=== PATIENT | female | born 1960 | race Asian ===

== ENCOUNTER 2018-11-15 11:30 | Inpatient (IN) | payer OTHER ==
[2018-11-15 12:21] LABS: BASOPHILS % (AUTO) 0.3 %; EOSINOPHILS % (AUTO) 0.1 %; HGB - HEMOGLOBIN 15.9 g/dL (12.0-16.0); LYMPHOCYTES % (AUTO) 4.7 %; MEAN CORPUSCULAR HEMOGLOBIN 29.1 pg (27.0-31.0); MEAN CORPUSCULAR HGB CONC 33.3 g/dL (32.0-36.0); MEAN CORPUSCULAR VOLUME 87.4 fL (81.0-99.0); MEAN PLATELET VOLUME 7.1 fL (7.9-10.8); NEUTROPHILS % (AUTO) 88.9 %; PLT - PLATELET COUNT 284 10^3/uL (130-450); RED BLOOD COUNT 5.48 10^6/uL (4.20-5.40); RED CELL DISTRIBUTION WIDTH 12.9 % (12.0-15.0); WHITE BLOOD COUNT 13.3 x10^3/uL (4.8-10.8)
[2018-11-15 12:33] LABS: GLUCOSE, URINE (UA) NEGATIVE (NEGATIVE); KETONES,URINE (UA) 15 mg/dL (NEGATIVE); LEUKOCYTE ESTERASE, URINE TRACE (NEGATIVE); NITRITE,URINE NEGATIVE (NEGATIVE); OCCULT BLOOD,URINE NEGATIVE (NEGATIVE); PH,URINE 8.5 PH (5.0-7.5); PROTEIN,URINE 100 mg/dL (NEGATIVE); UROBILINOGEN,URINE 0.2 (NORMAL) E.U./dL (NORMAL)
[2018-11-15 12:33] LABS: ALBUMIN 4.6 g/dL (3.2-5.5); ALBUMIN/GLOBULIN RATIO 1.2 (1.0-2.2); BILIRUBIN,TOTAL 2.5 mg/dL (0.2-1.0); CALCIUM 10.5 mg/dL (8.5-10.3); CREATININE 0.8 mg/dL (0.4-1.0); TOTAL PROTEIN 8.5 g/dL (6.7-8.2)
[2018-11-15 12:35] LABS: CLARITY,URINE HAZY (CLEAR)
[2018-11-15 12:38] LABS: BILIRUBIN,URINE NEGATIVE (NEGATIVE); ICTOTEST,URINE NEGATIVE
[2018-11-15 12:47] LABS: BACTERIA,URINE Rare /HPF (None Seen); MUCUS,URINE Marked Strands; RBC,URINE 0-5 /HPF (0-5); SQUAMOUS EPITHELIAL CELL,UR RARE Squamous (<= Few)
[2018-11-15 12:57] LABS: ABNORMAL LYMPHS % (MANUAL) 0 %
[2018-11-15 12:58] LABS: BAND NEUTROPHILS % (MANUAL) 9 %; LYMPHOCYTES # (MANUAL) 0.7 10^3/uL (1.5-3.5); LYMPHOCYTES % (MANUAL) 5 %; MONOCYTES # (MANUAL) 0.4 10^3/uL (0.0-1.0); NEUTROPHILS # (MANUAL) 12.2 10^3/uL (1.5-6.6); NEUTROPHILS % (MANUAL) 83 %; PLATELET ESTIMATE, MANUAL NORMAL (130-450,000) (NORMAL); PLATELET MORPHOLOGY NORMAL APPEARANCE (NORMAL); RBC MORPHOLOGY (MULTIPLE) NORMAL APPEARANCE (NORMAL)
[2018-11-15 12:59] LABS: DIFFERENTIAL COMMENT MANUAL DIFFERENTIAL
[2018-11-15] MEDS ORDERED: MORPHINE 10 MG/ML VIAL IVP STA (13:01)
[2018-11-15] MEDS ORDERED: ACETAMINOPHEN 1,000 MG/100 ML 100 ML IV STA (13:01)
[2018-11-15] MEDS ORDERED: ONDANSETRON 4 MG/2 ML VIAL IVP STA (13:01)
[2018-11-15] MEDS ORDERED: SODIUM CHLORIDE 0.9% 1,000 ML IV ONE ×2 (13:01→13:53)
--- NOTE | 2018-11-15 13:02 | ED Physician Documentation ---
PD HPI ABD PAIN - Stated complaint Stated Complaint: ABDOMINAL PX - Chief complaint Chief Complaint: Abd Pain - History obtained from History obtained from: Patient - History of Present Illness Timing - onset: Last night (about 8 pm.) Timing - details: Gradual onset, Still present, Constant Quality: Cramping, Aching, Fullness/distended Location: All over / everywhere, Periumbilical Radiation: No: Chest, Lower back Improved by: No: Vomiting Worsened by: Eating, Position, Palpation Associated symptoms: Nausea, Vomiting (once), Loss of appetite. No: Fever, Diarrhea, Constipation, Melena, Dysuria Similar symptoms before: Has not had sx before Recently seen: Not recently seen Review of Systems Constitutional: denies: Fever, Chills, Myalgias Nose: denies: Rhinorrhea / runny nose, Congestion Throat: denies: Sore throat Cardiac: denies: Chest pain / pressure GI: reports: Abdominal Pain, Abdominal Swelling, Nausea, Vomiting (once). denies: Constipation, Diarrhea, Bloody / black stool : denies: Dysuria, Frequency Skin: denies: Rash, Lesions Neurologic: reports: Generalized weakness. 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 - Present Medications Home Medications: Ambulatory Orders Medication Instructions Recorded Confirmed No Known Home Medications 11/15/18 11/15/18 - Allergies Allergies/Adverse Reactions: Allergies Allergy/AdvReac Type Severity Reaction Status Date / Time prochlorperazine Allergy Cramps Verified 11/15/18 11:41 [From Compazine] - Social History Does the pt smoke?: No Smoking Status: Never smoker Does the pt drink ETOH?: No PD ED PE NORMAL - Vitals Vital signs reviewed: Yes - General General: Alert and oriented X 3, Well developed/nourished - HEENT HEENT: Pharynx benign - Neck Neck: Supple, no meningeal sign, No adenopathy - Cardiac Cardiac: RRR, No murmur - Respiratory Respiratory: Clear bilaterally - Abdomen Abdomen: Other (Moderately distended and tense with increased bowel sounds. She is generally tender and also has percussion tenderness and rebound.). No: Normal bowel sounds, Soft - Female Female : Deferred - Rectal Rectal: Deferred - Back Back: No CVA TTP - Derm Derm: Normal color, Warm and dry - Extremities Extremities: No deformity, Normal ROM s pain, No edema, No calf tenderness / cord - Neuro Neuro: Alert and oriented X 3, No motor deficit, Normal speech Results - Vitals Vitals: Vital Signs - 24 hr 11/15/18 11/15/18 11/15/18 11:33 13:52 13:53 Temperature 35.6 C L Heart Rate 94 75 94 Respiratory 24 20 Rate Blood Pressure 114/68 140/56 H 140/56 H O2 Saturation 100 95 95 Oxygen O2 Source Room air - Labs Labs: Laboratory Tests 11/15/18 11/15/18 11/15/18 12:14 12:14 12:14 WBC 13.3 H RBC 5.48 H Hgb 15.9 Hct 47.9 H MCV 87.4 MCH 29.1 MCHC 33.3 RDW 12.9 Plt Count 284 MPV 7.1 L Neut # (Auto) Not Reportable Lymph # (Auto) Not Reportable Collier # (Auto) Not Reportable Eos # (Auto) Not Reportable Baso # (Auto) Not Reportable Absolute Nucleated RBC Not Reportable Total Counted 100 Band Neuts % (Manual) 9 Abnorm Lymph % (Manual) 0 Nucleated RBC % Not Reportable Neutrophils # (Manual) 12.2 H Lymphocytes # (Manual) 0.7 L Monocytes # (Manual) 0.4 Eosinophils # (Manual) 0.0 Basophils # (Manual) 0.0 Differential Comment MANUAL DIFFERENTIAL WBC Morphology NORMAL APPEARANCE Platelet Estimate NORMAL (130-450,000) Platelet Morphology NORMAL APPEARANCE RBC Morph Micro Appear NORMAL APPEARANCE PT 12.8 H INR 1.1 Sodium 137 Potassium 3.3 L Chloride 99 L Carbon Dioxide 21 Anion Gap 17.0 H BUN 38 H Creatinine 0.8 Estimated GFR (MDRD) 74 L Glucose 169 H Calcium 10.5 H Total Bilirubin 2.5 H AST 20 ALT 17 Alkaline Phosphatase 61 Total Protein 8.5 H Albumin 4.6 Globulin 3.9 Albumin/Globulin Ratio 1.2 Lipase 28 Urine Color Urine Clarity Urine pH Ur Specific Bly Urine Protein Urine Glucose (UA) Urine Ketones Urine Occult Blood Urine Nitrite Urine Bilirubin Urine Urobilinogen Ur Leukocyte Esterase Urine RBC Urine WBC Ur Squamous Epith Cells Urine Bacteria Urine Mucus Ur Microscopic Review Urine Culture Comments 11/15/18 12:20 WBC RBC Hgb Hct MCV MCH MCHC RDW Plt Count MPV Neut # (Auto) Lymph # (Auto) Collier # (Auto) Eos # (Auto) Baso # (Auto) Absolute Nucleated RBC Total Counted Band Neuts % (Manual) Abnorm Lymph % (Manual) Nucleated RBC % Neutrophils # (Manual) Lymphocytes # (Manual) Monocytes # (Manual) Eosinophils # (Manual) Basophils # (Manual) Differential Comment WBC Morphology Platelet Estimate Platelet Morphology RBC Morph Micro Appear PT INR Sodium Potassium Chloride Carbon Dioxide Anion Gap BUN Creatinine Estimated GFR (MDRD) Glucose Calcium Total Bilirubin AST ALT Alkaline Phosphatase Total Protein Albumin Globulin Albumin/Globulin Ratio Lipase Urine Color YELLOW Urine Clarity HAZY Urine pH 8.5 H Ur Specific Bly 1.010 Urine Protein 100 H Urine Glucose (UA) NEGATIVE Urine Ketones 15 H Urine Occult Blood NEGATIVE Urine Nitrite NEGATIVE Urine Bilirubin NEGATIVE Urine Urobilinogen 0.2 (NORMAL) Ur Leukocyte Esterase TRACE H Urine RBC 0-5 Urine WBC 0-3 Ur Squamous Epith Cells RARE Squamous Urine Bacteria Rare Urine Mucus Marked Strands Ur Microscopic Review INDICATED Urine Culture Comments INDICATED - Rads (name of study) abd CT Radiology: Prelim report reviewed (SBO with transition in pelvis.), EMP read contemporaneously, See rad report PD MEDICAL DECISION MAKING - ED course Complexity details: reviewed results, re-evaluated patient, d/w patient, d/w property consultant (I talked with Dr. Lipscomb is on for surgery and he refers it to the medicine team. He said the patient did not require an NG tube if she is not vomiting. I talked with the hospitalist to admit the patient.) Departure - Departure Disposition: 66 [facility] DC/Xfer Clinical Impression: Small bowel obstruction due to adhesions Abdominal pain Qualifiers: Abdominal location: generalized Qualified Code(s): R10.84 - Generalized abdominal pain Condition: Stable Record reviewed to determine appropriate education?: Yes
[2018-11-15] MEDS ORDERED: IOVERSOL 320 100 ML VIAL IVP ONE (13:14)
--- NOTE | 2018-11-15 14:00 | CT Report ---
Reason: mid abd pain since last evening Procedure Date: 11/15/2018 Accession Number: [id number] / [id number] Procedure: CT - Abdomen/Pelvis W CPT Code: FULL RESULT: EXAM: CT ABDOMEN AND PELVIS EXAM DATE: 11/15/2018 01:29 PM. CLINICAL HISTORY: Mid abdominal pain since last evening. COMPARISONS: None. TECHNIQUE: Routine helical CT imaging was performed through the abdomen and pelvis. IV contrast: Optiray 320 80 mL. Enteric contrast: No. Reconstructions: Coronal and sagittal. In accordance with CT protocol optimization, one or more of the following dose reduction techniques were utilized for this exam: automated exposure control, adjustment of mA and/or KV based on patient size, or use of iterative reconstructive technique. FINDINGS: There are dilated loops of duodenum and jejunum with fecalization of bowel contents in the left lower quadrant and a small amount of associated interloop fluid. A single transition point is seen in the pelvis on image 56 series 3 and image 22 series 5. Distal small bowel loops are collapsed. Some fecal content is still seen in the large bowel. Bowel wall appears intact with no pneumatosis detected. Bowel wall enhancement is preserved, there is questionably mild decrease in the relative enhancement of bowel loops close to the obstruction, possibly artifactual due to osseus attenuation of the pelvis. A few prominent lymph nodes are seen at the point of obstruction. Gallbladder demonstrates cholelithiasis. The liver, spleen, adrenal glands, kidneys, pancreas are unremarkable with the exception of a hepatic hypodensity too small to characterize. No aggressive osseous lesions. IMPRESSION: Small bowel obstruction. CRITICAL RESULT: The findings were discussed with Dr. Calderon on 11/15/2018 at 2:00. RADIA
[2018-11-15 14:16] LABS: INR 1.1 (0.8-1.2); PT - PROTHROMBIN TIME 12.8 secs (9.9-12.6)
[2018-11-15 14:23] LABS: PARTIAL THROMBOPLASTIN TIME 26.3 secs (24.9-33.3)
[2018-11-15] MEDS ORDERED: ACETAMINOPHEN 325 MG TABLET PO PRN (14:43)
[2018-11-15 15:47] LABS: HB2 TOTAL 17.6 g/dL; HEMOGLOBIN A1C 0.65 g/dL; HEMOGLOBIN A1C % 5.5 % (4.6-6.2)
--- NOTE | 2018-11-15 15:58 | HISTORY & PHYSICAL EXAMINATION ---
Chief Complaint - Chief Complaint Chief Complaint: abdominal pain History of Present Illness - History of Present Illness HPI Comment/Other: Ms. Renae is 58-yrs-old previous healthy female who present ER complain of abdominal pain. pt report she started diffused abdominal pain since 8pm on last night, then she start to have Nausea and once of Vomiting (once), and Loss of appetite. She thought she will become better but gradually she feel worsening. She denies fever, chill, chest pain, cough, wheezing, shortness of breath. CT of abdomen reveals small bowel obstruction. surgeon Dr. Lipscomb was called. In Lab test, pt has slight elevated BUN, and total bili 2.5, and elevated WBC 13.3. Otherwise pt is hemodynamic stable. pt is admitted for further evaluation and treatment of small bowel obstruction. 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 Social History Notes: pt report she smoked cigarette at her young age then she quitted. Pt denies alcohol and drug abuse. Meds/Allgy - Home Medications Home Medications: Ambulatory Orders Medication Instructions Recorded Confirmed No Known Home Medications 11/15/18 11/15/18 - Allergies Allergies/Adverse Reactions: Allergies Allergy/AdvReac Type Severity Reaction Status Date / Time prochlorperazine Allergy Cramps Verified 11/15/18 11:41 [From Compazine] Review of Systems - Constitutional Constitutional: denies: Fatigue, Fever, Chills, Malaise, Weakness, Poor appetite, Diaphoresis, Night sweats - Eyes Eyes: denies: Pain, Irritation, Amaurosis, Blurred vision, Spots in vision, Field loss, Vision loss, Dipolpia - Ears, Nose & Throat Ears, Nose & Throat: denies: Ear pain, Hearing loss, Hearing aids, Tinnitus, Vertigo, Nasal pain, Nasal discharge, Nosebleeds, Nasal obstruction, Nasal congestion, Postnasal drainage, Dentures, Sore throat - Cardiovascular Cariovascular: denies: Irregular heart rate, Palpitations, Chest pain, Edema, Lightheadedness, Syncope, Exertional dyspnea, Decr. exercise tolerance - Respiratory Respiratory: denies: Cough, Sputum production, Wheezing, Snoring, Hemoptysis, Orthopnea, SOB at rest, SOB with exertion - Gastrointestinal Gastrointestinal: reports: Abdominal pain, Nausea, Vomiting. denies: Abdominal distention, Constipation, Diarrhea, Change in bowel habits, Rectal bleeding, Black stools, Bloody stools, Bile emesis, Chon blood emesis, Coffee grounds emesis, Reflux/heartburn, Bloating, Poor appetite - Genitourinary Genitourinary: denies: Dysuria, Frequency, Urgency, Hematuria, Incontinence, Flank pain, Nocturia, Urethral discharge - Musculoskeletal Musculoskeletal: denies: Muscle pain, Back pain, Muscle aches, Stiffness, Limited range of motion, Muscle weakness, Gout, Joint pain - Integumentary Integumentary: denies: Rash, Pruritis, Lesions, Dryness, Lumps, Acne, Pigment changes, Nail changes - Neurological Neurological: denies: General weakness, Focal weakness, Headache, Dizziness, Numbness, Memory problems, Pre-existing deficit, Abnormal gait - Psychiatric Psychiatric: denies: Depression, Anxiety, Suicidal, Delusions, Hallucinations, Homicidal - Endocrine Endocrine: denies: Polyuria, Polydypsia, Polyphagia, Intolerance to cold - Hematologic/Lymphatic Hematologic/Lymphatic: denies: Anemia, Bruising, Petechiae, Blood clots, Lymphadenopathy, Bleeding tendencies Exam - Vital Signs Reviewed Vital Signs: Yes Vital Signs: Vital Signs x48h Temp Pulse Pulse Resp BP BP Pulse Ox 11/15/18 15:50 36.6 C 69 16 129/66 98 11/15/18 14:57 37.2 C 71 18 139/72 H 99 11/15/18 13:53 94 140/56 H 95 11/15/18 13:52 75 20 140/56 H 95 11/15/18 11:33 35.6 C L 94 24 114/68 100 - Physical Exam General Appearance: positive: No acute distress, Alert. negative: Lethargic Eyes Bilateral: positive: Normal inspection, PERRL, No lid inflammation, Conjunctivae nml ENT: positive: ENT inspection nml, Pharynx nml, No signs of dehydration. negative: Purulent nasal drainage, Pharyngeal erythema, Oral lesions Neck: positive: Nml inspection, Thyroid nml, No JVD, Trachea midline. negative: Thyromegaly, Lymphadenopathy (R), Lymphadenopathy (L), Stiff neck, Swelling/bruising, Tracheal deviation Respiratory: positive: Chest non-tender, No respiratory distress, Breath sounds nml. negative: Wheezes, Rales, Rhonchi Cardiovascular: positive: Regular rate & rhythm, No murmur, No gallop. negative: Irregularly irregular, Extrasystoles, Tachycardia, Bradycardia, JVD present, Systolic murmur, Diastolic murmur Peripheral Pulses: positive: 2+ Abdomen: positive: Non-tender, No organomegaly, Nml bowel sounds, No distention. negative: Tenderness, Guarding, Rebound Back: positive: Nml inspection. negative: CVA tenderness (R), CVA tenderness (L) Skin: positive: Color nml, No rash, Warm, Dry. negative: Cyanosis, Diaphoresis, Pallor Extremities: positive: Non-tender, Full ROM, Nml appearance. negative: Calf tenderness, Joint swelling, Sury's sign/cords Neurologic/Psychiatric: positive: Oriented x3, Motor nml, Sensation nml, Mood/affect nml. negative: Weakness, Sensory loss, Facial droop, Slurred/abnml speech, Depressed mood/affect Sepsis Event Note (H) - Evaluation Current Stage of Sepsis: Ruled out Conclusion/Plan - Problem List (1) Small bowel obstruction due to adhesions Conclusion/Plan: pt has suddenly diffused abdominal pain, nausea and with once vomiting. CT of abdomen reveals SBO consult with GI surgeon pain control bowel rest with NPO IVF encourage pt safely walk (2) Abdominal pain Conclusion/Plan: it seems caused by SBO pain control encourage pt safely walk Qualifiers: Abdominal location: generalized Qualified Code(s): R10.84 - Generalized abdominal pain (3) Nausea & vomiting Conclusion/Plan: antiemesis PRN. pt has no vomiting now, no NG until pt has vomiting. - Lab Results Fish Bones: 11/15/18 12:14 11/15/18 12:14 Core Measures - Anticipated LOS I expect patient to be DC'd or transferred within 96 hours.: Yes - DVT/VTE - Prophylaxis VTE/DVT Device ordered at admit?: Yes VTE/DVT Prophylaxis med ordered at admit?: Yes
[2018-11-15] MEDS: POTASSIUM CHLOR 10 MEQ/100 ML 10 MEQ/100 ML BAG IV SCH ×2 (16:34→17:37)
[2018-11-15] MEDS: SODIUM CHLORIDE FLUSH 0.9% 10 ML SYRINGE IVP SCH (16:34)
[2018-11-15] MEDS: SODIUM CHLORIDE 0.9% 1,000 ML IV SCH (16:34)
--- NOTE | 2018-11-15 16:57 | CONSULTATION NOTE ---
Referring Provider Consult Date: 11/15/18 Chief Complaint - Chief Complaint Chief Complaint: abdominal pain History of Present Illness - History of Present Illness HPI Comment/Other: 58 yo woman h/o csection X 3 and hysterectomy had abrupt onset abdominal pain last night. CT in ER shows SBO with transition point in the pelvis. Pt now feeling improved. 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 Social History Notes: pt report she smoked cigarette at her young age then she quitted. Pt denies alcohol and drug abuse. Meds/Allgy - Home Medications Home Medications: Ambulatory Orders Medication Instructions Recorded Confirmed No Known Home Medications 11/15/18 11/15/18 - Allergies Allergies/Adverse Reactions: Allergies Allergy/AdvReac Type Severity Reaction Status Date / Time prochlorperazine Allergy Cramps Verified 11/15/18 11:41 [From Compazine] Review of Systems - Gastrointestinal Gastrointestinal: reports: Abdominal pain Exam - Vital Signs Vital Signs: Vital Signs x48h Temp Pulse Pulse Resp BP BP Pulse Ox 11/15/18 15:50 36.6 C 69 16 129/66 98 11/15/18 14:57 37.2 C 71 18 139/72 H 99 11/15/18 13:53 94 140/56 H 95 11/15/18 13:52 75 20 140/56 H 95 11/15/18 11:33 35.6 C L 94 24 114/68 100 - Physical Exam General Appearance: positive: No acute distress Eyes Bilateral: positive: Normal inspection ENT: positive: ENT inspection nml Respiratory: positive: Chest non-tender Abdomen: positive: Non-tender Skin: positive: Color nml Extremities: positive: Non-tender Neurologic/Psychiatric: positive: Oriented x3 Conclusion/Plan - Diagnosis Diagnosis: SBO - Plan Plan: 58 yo woman with SBO. She has no sign of bowel ischemia and is improving symptomatically, so safe to manage non-operatively for now. Pt understands and is in agreement with the plan. - Lab Results Fish Bones: 11/15/18 12:14 11/15/18 12:14
[2018-11-15] MEDS: KETOROLAC 15 MG/ML VIAL IVP PRN (18:50)
[2018-11-15] MEDS: MORPHINE 2 MG/ML CARPUJECT IVP PRN (18:51)
[2018-11-16] MEDS: SODIUM CHLORIDE 0.9% 1,000 ML IV SCH ×3 (00:25→23:42)
[2018-11-16] MEDS: MORPHINE 2 MG/ML CARPUJECT IVP PRN ×3 (00:30→17:09)
[2018-11-16] MEDS: SODIUM CHLORIDE FLUSH 0.9% 10 ML SYRINGE IVP SCH ×4 (00:30→23:42)
[2018-11-16] MEDS: ONDANSETRON 4 MG/2 ML VIAL IVP PRN ×3 (03:47→19:40)
[2018-11-16 05:54] LABS: BASOPHILS % (AUTO) 0.5 %; EOSINOPHILS # (AUTO) 0.1 10^3/uL (0.0-0.7); EOSINOPHILS % (AUTO) 1.9 %; HGB - HEMOGLOBIN 13.4 g/dL (12.0-16.0); LYMPHOCYTES # (AUTO) 0.4 10^3/uL (1.5-3.5); LYMPHOCYTES % (AUTO) 11.3 %; MEAN CORPUSCULAR HGB CONC 33.6 g/dL (32.0-36.0); MEAN CORPUSCULAR VOLUME 89.1 fL (81.0-99.0); MEAN PLATELET VOLUME 7.2 fL (7.9-10.8); MONOCYTES # (AUTO) 0.6 10^3/uL (0.0-1.0); MONOCYTES % (AUTO) 15.7 %; NEUTROPHILS # (AUTO) 2.8 10^3/uL (1.5-6.6); NEUTROPHILS % (AUTO) 70.6 %; PLT - PLATELET COUNT 197 10^3/uL (130-450); RED BLOOD COUNT 4.46 10^6/uL (4.20-5.40); RED CELL DISTRIBUTION WIDTH 13.2 % (12.0-15.0); WHITE BLOOD COUNT 3.9 x10^3/uL (4.8-10.8)
[2018-11-16 06:13] LABS: ALBUMIN 3.4 g/dL (3.2-5.5); ALBUMIN/GLOBULIN RATIO 1.3 (1.0-2.2); BILIRUBIN,TOTAL 2.1 mg/dL (0.2-1.0); CALCIUM 8.9 mg/dL (8.5-10.3); CREATININE 0.6 mg/dL (0.4-1.0); MAGNESIUM 2.2 mg/dL (1.7-2.8); TOTAL PROTEIN 6.1 g/dL (6.7-8.2)
[2018-11-16] MEDS: SODIUM CHLORIDE FLUSH 0.9% 10 ML SYRINGE IVP PRN ×3 (06:34→19:57)
[2018-11-16] MEDS: PANTOPRAZOLE 40 MG VIAL IVP SCH (06:34)
[2018-11-16] MEDS: KETOROLAC 15 MG/ML VIAL IVP PRN ×3 (06:38→19:34)
[2018-11-16] MEDS: POLYETHYLENE GLYCOL 3350 17 GM PACKET PO SCH (07:26)
[2018-11-16] MEDS: ENOXAPARIN 40 MG/0.4 ML SYRINGE SUBQ SCH (08:09)
--- NOTE | 2018-11-16 08:49 | PROVIDER PROGRESS NOTE ---
Subjective - Prog Note Date Prog Note Date: 11/16/18 Prog Note Time: 08:47 - Subjective Pt reports feeling: Improved (Pt feels improved with less pain, but no flatus or BM.) Objective - Vital Signs/Intake & Output Vital Signs: Vital Signs x48h Temp Pulse Resp BP Pulse Ox 11/16/18 06:28 37.0 C 76 18 126/64 95 Intake & Output: Intake & Output 11/13/18 11/14/18 11/15/18 11/16/18 23:59 23:59 23:59 23:59 Intake Total 2300.000 1902.083 Output Total 200 Balance 2300.000 1702.083 - Objective General Appearance: positive: No acute distress Eyes Bilateral: positive: Normal inspection Abdomen: positive: Non-tender - Lab Results Fish Bones: 11/16/18 05:00 11/16/18 05:00 Other Labs: Lab Results x24hrs 11/16/18 11/16/18 11/15/18 Range/Units 05:00 05:00 14:09 WBC 3.9 L (4.8-10.8) x10^3/uL RBC 4.46 (4.20-5.40) 10^6/uL Hgb 13.4 (12.0-16.0) g/dL Hct 39.7 (37.0-47.0) % MCV 89.1 (81.0-99.0) fL MCH 30.0 (27.0-31.0) pg MCHC 33.6 (32.0-36.0) g/dL RDW 13.2 (12.0-15.0) % Plt Count 197 (130-450) 10^3/uL MPV 7.2 L (7.9-10.8) fL Neut # (Auto) 2.8 Lymph # (Auto) 0.4 L Ceiba # (Auto) 0.6 Eos # (Auto) 0.1 Baso # (Auto) 0.0 Absolute Nucleated RBC 0.00 Total Counted Band Neuts % (Manual) (0 - 10) % Abnorm Lymph % (Manual) % Nucleated RBC % 0.1 Neutrophils # (Manual) (1.5-6.6) 10^3/uL Lymphocytes # (Manual) (1.5-3.5) 10^3/uL Monocytes # (Manual) (0.0-1.0) 10^3/uL Eosinophils # (Manual) (0-0.7) 10^3/uL Basophils # (Manual) (0-0.1) 10^3/uL Differential Comment WBC Morphology (NORMAL) Platelet Estimate (NORMAL) Platelet Morphology (NORMAL) RBC Morph Micro Appear (NORMAL) PT (9.9-12.6) secs INR (0.8-1.2) APTT (24.9-33.3) secs Sodium 140 (135-145) mmol/L Potassium 3.8 (3.5-5.0) mmol/L Chloride 108 (101-111) mmol/L Carbon Dioxide 26 (21-32) mmol/L Anion Gap 6.0 (6-13) BUN 34 H (6-20) mg/dL Creatinine 0.6 (0.4-1.0) mg/dL Estimated GFR (MDRD) 103 (>89) Glucose 114 H (70-100) mg/dL Glycated Hemoglobin (4.6-6.2) % Estim Average Glucose (70-100) Lactic Acid 0.9 (0.5-2.2) mmol/L Calcium 8.9 (8.5-10.3) mg/dL Magnesium 2.2 (1.7-2.8) mg/dL Total Bilirubin 2.1 H (0.2-1.0) mg/dL AST 16 (10-42) IU/L ALT 14 (10-60) IU/L Alkaline Phosphatase 43 (42-121) IU/L Total Protein 6.1 L (6.7-8.2) g/dL Albumin 3.4 (3.2-5.5) g/dL Globulin 2.7 (2.1-4.2) g/dL Albumin/Globulin Ratio 1.3 (1.0-2.2) Lipase (22-51) U/L Urine Color Urine Clarity (CLEAR) Urine pH (5.0-7.5) PH Ur Specific [place] (1.002-1.030) Urine Protein (NEGATIVE) mg/dL Urine Glucose (UA) (NEGATIVE) mg/dL Urine Ketones (NEGATIVE) mg/dL Urine Occult Blood (NEGATIVE) Urine Nitrite (NEGATIVE) Urine Bilirubin (NEGATIVE) Urine Urobilinogen (NORMAL) E.U./dL Ur Leukocyte Esterase (NEGATIVE) Urine RBC (0-5) /HPF Urine WBC (0-5) /HPF Ur Squamous Epith Cells (<= Few) Urine Bacteria (None Seen) /HPF Urine Mucus Ur Microscopic Review Urine Culture Comments 11/15/18 11/15/18 11/15/18 Range/Units 12:20 12:14 12:14 WBC (4.8-10.8) x10^3/uL RBC (4.20-5.40) 10^6/uL Hgb (12.0-16.0) g/dL Hct (37.0-47.0) % MCV (81.0-99.0) fL MCH (27.0-31.0) pg MCHC (32.0-36.0) g/dL RDW (12.0-15.0) % Plt Count (130-450) 10^3/uL MPV (7.9-10.8) fL Neut # (Auto) Lymph # (Auto) [place] # (Auto) Eos # (Auto) Baso # (Auto) Absolute Nucleated RBC Total Counted Band Neuts % (Manual) (0 - 10) % Abnorm Lymph % (Manual) % Nucleated RBC % Neutrophils # (Manual) (1.5-6.6) 10^3/uL Lymphocytes # (Manual) (1.5-3.5) 10^3/uL Monocytes # (Manual) (0.0-1.0) 10^3/uL Eosinophils # (Manual) (0-0.7) 10^3/uL Basophils # (Manual) (0-0.1) 10^3/uL Differential Comment WBC Morphology (NORMAL) Platelet Estimate (NORMAL) Platelet Morphology (NORMAL) RBC Morph Micro Appear (NORMAL) PT 12.8 H (9.9-12.6) secs INR 1.1 (0.8-1.2) APTT 26.3 (24.9-33.3) secs Sodium (135-145) mmol/L Potassium (3.5-5.0) mmol/L Chloride (101-111) mmol/L Carbon Dioxide (21-32) mmol/L Anion Gap (6-13) BUN (6-20) mg/dL Creatinine (0.4-1.0) mg/dL Estimated GFR (MDRD) (>89) Glucose (70-100) mg/dL Glycated Hemoglobin 5.5 (4.6-6.2) % Estim Average Glucose 111 H (70-100) Lactic Acid (0.5-2.2) mmol/L Calcium (8.5-10.3) mg/dL Magnesium (1.7-2.8) mg/dL Total Bilirubin (0.2-1.0) mg/dL AST (10-42) IU/L ALT (10-60) IU/L Alkaline Phosphatase (42-121) IU/L Total Protein (6.7-8.2) g/dL Albumin (3.2-5.5) g/dL Globulin (2.1-4.2) g/dL Albumin/Globulin Ratio (1.0-2.2) Lipase (22-51) U/L Urine Color YELLOW Urine Clarity HAZY (CLEAR) Urine pH 8.5 H (5.0-7.5) PH Ur Specific [place] 1.010 (1.002-1.030) Urine Protein 100 H (NEGATIVE) mg/dL Urine Glucose (UA) NEGATIVE (NEGATIVE) mg/dL Urine Ketones 15 H (NEGATIVE) mg/dL Urine Occult Blood NEGATIVE (NEGATIVE) Urine Nitrite NEGATIVE (NEGATIVE) Urine Bilirubin NEGATIVE (NEGATIVE) Urine Urobilinogen 0.2 (NORMAL) (NORMAL) E.U./dL Ur Leukocyte Esterase TRACE H (NEGATIVE) Urine RBC 0-5 (0-5) /HPF Urine WBC 0-3 (0-5) /HPF Ur Squamous Epith Cells RARE Squamous (<= Few) Urine Bacteria Rare (None Seen) /HPF Urine Mucus Marked Strands Ur Microscopic Review INDICATED Urine Culture Comments INDICATED 11/15/18 11/15/18 Range/Units 12:14 12:14 WBC 13.3 H (4.8-10.8) x10^3/uL RBC 5.48 H (4.20-5.40) 10^6/uL Hgb 15.9 (12.0-16.0) g/dL Hct 47.9 H (37.0-47.0) % MCV 87.4 (81.0-99.0) fL MCH 29.1 (27.0-31.0) pg MCHC 33.3 (32.0-36.0) g/dL RDW 12.9 (12.0-15.0) % Plt Count 284 (130-450) 10^3/uL MPV 7.1 L (7.9-10.8) fL Neut # (Auto) Not Reportable Lymph # (Auto) Not Reportable [place] # (Auto) Not Reportable Eos # (Auto) Not Reportable Baso # (Auto) Not Reportable Absolute Nucleated RBC Not Reportable Total Counted 100 Band Neuts % (Manual) 9 (0 - 10) % Abnorm Lymph % (Manual) 0 % Nucleated RBC % Not Reportable Neutrophils # (Manual) 12.2 H (1.5-6.6) 10^3/uL Lymphocytes # (Manual) 0.7 L (1.5-3.5) 10^3/uL Monocytes # (Manual) 0.4 (0.0-1.0) 10^3/uL Eosinophils # (Manual) 0.0 (0-0.7) 10^3/uL Basophils # (Manual) 0.0 (0-0.1) 10^3/uL Differential Comment MANUAL DIFFERENTIAL WBC Morphology NORMAL APPEARANCE (NORMAL) Platelet Estimate NORMAL (130-450,000) (NORMAL) Platelet Morphology NORMAL APPEARANCE (NORMAL) RBC Morph Micro Appear NORMAL APPEARANCE (NORMAL) PT (9.9-12.6) secs INR (0.8-1.2) APTT (24.9-33.3) secs Sodium 137 (135-145) mmol/L Potassium 3.3 L (3.5-5.0) mmol/L Chloride 99 L (101-111) mmol/L Carbon Dioxide 21 (21-32) mmol/L Anion Gap 17.0 H (6-13) BUN 38 H (6-20) mg/dL Creatinine 0.8 (0.4-1.0) mg/dL Estimated GFR (MDRD) 74 L (>89) Glucose 169 H (70-100) mg/dL Glycated Hemoglobin (4.6-6.2) % Estim Average Glucose (70-100) Lactic Acid (0.5-2.2) mmol/L Calcium 10.5 H (8.5-10.3) mg/dL Magnesium (1.7-2.8) mg/dL Total Bilirubin 2.5 H (0.2-1.0) mg/dL AST 20 (10-42) IU/L ALT 17 (10-60) IU/L Alkaline Phosphatase 61 (42-121) IU/L Total Protein 8.5 H (6.7-8.2) g/dL Albumin 4.6 (3.2-5.5) g/dL Globulin 3.9 (2.1-4.2) g/dL Albumin/Globulin Ratio 1.2 (1.0-2.2) Lipase 28 (22-51) U/L Urine Color Urine Clarity (CLEAR) Urine pH (5.0-7.5) PH Ur Specific [place] (1.002-1.030) Urine Protein (NEGATIVE) mg/dL Urine Glucose (UA) (NEGATIVE) mg/dL Urine Ketones (NEGATIVE) mg/dL Urine Occult Blood (NEGATIVE) Urine Nitrite (NEGATIVE) Urine Bilirubin (NEGATIVE) Urine Urobilinogen (NORMAL) E.U./dL Ur Leukocyte Esterase (NEGATIVE) Urine RBC (0-5) /HPF Urine WBC (0-5) /HPF Ur Squamous Epith Cells (<= Few) Urine Bacteria (None Seen) /HPF Urine Mucus Ur Microscopic Review Urine Culture Comments Sepsis Event Note (H) - Evaluation Current Stage of Sepsis: Ruled out Assessment/Plan - Problem List (1) Abdominal pain Impression: Pt seems to be improving. WBC now normal, no tenderness on exam, pain much improved. No need for urgent surgery, plan for gastrograffin challenge. Pt is in agreement. Qualifiers: Abdominal location: generalized Qualified Code(s): R10.84 - Generalized abdominal pain
[2018-11-16] MEDS ORDERED: DIATR MEGLU/DIATRIZOATE SODIUM 120 ML BOTTLE PO ONE (11:15)
--- NOTE | 2018-11-16 13:02 | PROVIDER PROGRESS NOTE ---
Subjective - Prog Note Date Prog Note Date: 11/16/18 Prog Note Time: 13:02 - Subjective Pt reports feeling: Improved Subjective: Delfina continues to feel nauseated, and was agreeable to the gastro-graffin. She states that her abdominal pain comes and goes. Her Blanca is at her bedside. Current Medications - Current Medications Current Medications: Active Medications: Acetaminophen (Tylenol) 650 mg PO Q4HR PRN Enoxaparin Sodium (Lovenox) 40 mg SUBQ DAILY [facility] Ceftriaxone Sodium 2 gm/ (Sodium Chloride) 100 mls @ 200 mls/hr IV Q24H [facility] Ketorolac Tromethamine (Toradol Inj (15mg)) 15 mg IVP Q6HR PRN Morphine Sulfate (Morphine (Carpuject)) 2 mg IVP Q2H PRN Ondansetron HCl (Zofran Inj) 4 mg IVP Q4HR PRN Pantoprazole Sodium (Protonix) 40 mg IVP QDAC [facility] Polyethylene Glycol (Miralax) 17 gm PO DAILY [facility] No Known Home Medications 11/15/18 Objective - Vital Signs/Intake & Output Reviewed Vital Signs: Yes Vital Signs: Vital Signs x48h Temp Pulse Resp BP Pulse Ox 11/16/18 06:28 37.0 C 76 18 126/64 95 Intake & Output: Intake & Output 11/13/18 11/14/18 11/15/18 11/16/18 23:59 23:59 23:59 23:59 Intake Total 2300.000 1902.083 Output Total 200 Balance 2300.000 1702.083 - Objective General Appearance: positive: No acute distress, Alert Eyes Bilateral: positive: Normal inspection, PERRL ENT: positive: ENT inspection nml, Pharynx nml, No signs of dehydration Neck: positive: Nml inspection, Thyroid nml, No JVD, Trachea midline Respiratory: positive: Chest non-tender, No respiratory distress, Breath sounds nml, Other (diminished with low base crackles, bilaterally) Cardiovascular: positive: Regular rate & rhythm, No gallop, Tachycardia, Systolic murmur Peripheral Pulses: 2+ Radial (R), 2+ Radial (L) Abdomen: positive: Tenderness, Guarding, Abnml bowel sounds Back: positive: Nml inspection Skin: positive: Color nml, No rash, Warm, Dry Extremities: positive: Non-tender, Full ROM, Nml appearance, No pedal edema Neurologic/Psychiatric: positive: Oriented x3, Motor nml, Sensation nml, Mood/affect nml Reflexes: Bicep (R): 3+, Bicep (L): 3+ - Lab Results Fish Bones: 11/16/18 05:00 11/16/18 05:00 Other Labs: Lab Results x24hrs 11/16/18 11/16/18 11/15/18 Range/Units 05:00 05:00 14:09 WBC 3.9 L (4.8-10.8) x10^3/uL RBC 4.46 (4.20-5.40) 10^6/uL Hgb 13.4 (12.0-16.0) g/dL Hct 39.7 (37.0-47.0) % MCV 89.1 (81.0-99.0) fL MCH 30.0 (27.0-31.0) pg MCHC 33.6 (32.0-36.0) g/dL RDW 13.2 (12.0-15.0) % Plt Count 197 (130-450) 10^3/uL MPV 7.2 L (7.9-10.8) fL Neut # (Auto) 2.8 (1.5-6.6) 10^3/uL Lymph # (Auto) 0.4 L (1.5-3.5) 10^3/uL [place] # (Auto) 0.6 (0.0-1.0) 10^3/uL Eos # (Auto) 0.1 (0.0-0.7) 10^3/uL Baso # (Auto) 0.0 (0.0-0.1) 10^3/uL Absolute Nucleated RBC 0.00 x10^3/uL Nucleated RBC % 0.1 /100WBC PT (9.9-12.6) secs INR (0.8-1.2) APTT (24.9-33.3) secs Sodium 140 (135-145) mmol/L Potassium 3.8 (3.5-5.0) mmol/L Chloride 108 (101-111) mmol/L Carbon Dioxide 26 (21-32) mmol/L Anion Gap 6.0 (6-13) BUN 34 H (6-20) mg/dL Creatinine 0.6 (0.4-1.0) mg/dL Estimated GFR (MDRD) 103 (>89) Glucose 114 H (70-100) mg/dL Glycated Hemoglobin (4.6-6.2) % Estim Average Glucose (70-100) Lactic Acid 0.9 (0.5-2.2) mmol/L Calcium 8.9 (8.5-10.3) mg/dL Magnesium 2.2 (1.7-2.8) mg/dL Total Bilirubin 2.1 H (0.2-1.0) mg/dL AST 16 (10-42) IU/L ALT 14 (10-60) IU/L Alkaline Phosphatase 43 (42-121) IU/L Total Protein 6.1 L (6.7-8.2) g/dL Albumin 3.4 (3.2-5.5) g/dL Globulin 2.7 (2.1-4.2) g/dL Albumin/Globulin Ratio 1.3 (1.0-2.2) 11/15/18 11/15/18 Range/Units 12:14 12:14 WBC (4.8-10.8) x10^3/uL RBC (4.20-5.40) 10^6/uL Hgb (12.0-16.0) g/dL Hct (37.0-47.0) % MCV (81.0-99.0) fL MCH (27.0-31.0) pg MCHC (32.0-36.0) g/dL RDW (12.0-15.0) % Plt Count (130-450) 10^3/uL MPV (7.9-10.8) fL Neut # (Auto) (1.5-6.6) 10^3/uL Lymph # (Auto) (1.5-3.5) 10^3/uL [place] # (Auto) (0.0-1.0) 10^3/uL Eos # (Auto) (0.0-0.7) 10^3/uL Baso # (Auto) (0.0-0.1) 10^3/uL Absolute Nucleated RBC x10^3/uL Nucleated RBC % /100WBC PT 12.8 H (9.9-12.6) secs INR 1.1 (0.8-1.2) APTT 26.3 (24.9-33.3) secs Sodium (135-145) mmol/L Potassium (3.5-5.0) mmol/L Chloride (101-111) mmol/L Carbon Dioxide (21-32) mmol/L Anion Gap (6-13) BUN (6-20) mg/dL Creatinine (0.4-1.0) mg/dL Estimated GFR (MDRD) (>89) Glucose (70-100) mg/dL Glycated Hemoglobin 5.5 (4.6-6.2) % Estim Average Glucose 111 H (70-100) Lactic Acid (0.5-2.2) mmol/L Calcium (8.5-10.3) mg/dL Magnesium (1.7-2.8) mg/dL Total Bilirubin (0.2-1.0) mg/dL AST (10-42) IU/L ALT (10-60) IU/L Alkaline Phosphatase (42-121) IU/L Total Protein (6.7-8.2) g/dL Albumin (3.2-5.5) g/dL Globulin (2.1-4.2) g/dL Albumin/Globulin Ratio (1.0-2.2) - Diagnostic Imaging Diagnostic Imaging Results: positive: Final report reviewed Diagnostic Imaging Comments: EXAM: CT ABDOMEN AND PELVIS EXAM DATE: 11/15/2018 01:29 PM. FINDINGS: There are dilated loops of duodenum and jejunum with fecalization of bowel contents in the left lower quadrant and a small amount of associated interloop fluid. A single transition point is seenin the pelvis on image 56 series 3 and image 22 series 5. Distal small bowel loops are collapsed. Some fecal content is still seen in the large bowel. Bowel wall appears intact with no pneumatosis detected. Bowel wall enhancement is preserved, there is questionably mild decrease in the relative enhancement of bowel loops close to the obstruction, possibly artifactual due to osseus attenuation of the pelvis. A few prominent lymph nodes are seen at the point of obstruction. Gallbladder demonstrates cholelithiasis. The liver, spleen, adrenal glands, kidneys, pancreas are unremarkable with the exception of a hepatic hypodensity too small to characterize. No aggressive osseous lesions. IMPRESSION: Small bowel obstruction. ABX Reporting Has patient been on IV antibiotics over the past 48 hours?: Yes Assessment/Plan - Problem List (1) Small bowel obstruction due to adhesions Impression: - Imaging upon admission confirms a SBO with dilated loops of duodenum and jejunum with bowel contents in the LLQ - Patient had pain in her LLQ, ongoing today - Still with s/s of nausea - Gastro-graffin challenge started, imaging to follow - General surgery consult, who does not recommend surgery Plan: Continue to monitor, encourage ambulation, monitor for improvement (2) E. coli UTI (urinary tract infection) Impression: - Admission WBC count was 13, now normal - Initial urine was not indicative of UTI, but preliminary culture results shows E. coli UTI - Patient denies dysuria, or new bladder habits - No recent diarrhea, no other recent illnesses Plan: Continue to monitor, start Rocephin, transition to oral after sensitivity list (3) Abdominal pain Impression: - Still with complaints, primarily LLQ that comes and goes Plan: Continue IV pain meds, monitor for improvement Qualifiers: Abdominal location: generalized Qualified Code(s): R10.84 - Generalized abdominal pain (4) Nausea & vomiting Impression: - Patient had ongoing nausea and was pre-medicated for her gastro-graffin study - She finally vomited 1000 mL of green bile this afternoon, so had several hours of keeping it down - Clear liquid diet for now Plan: Continue with anti-emetics, monitor N/V, may consider NG if this karly nues, IV fluids
[2018-11-16] MEDS: cefTRIAXone 2 GM in SODIUM CHLORIDE 0.9% MINIBAG 100 ML IV SCH (13:13)
[2018-11-16] MEDS ORDERED: LORazepam 2 MG/ML VIAL IVP STA (19:46)
[2018-11-17] MEDS: ONDANSETRON 4 MG/2 ML VIAL IVP PRN ×3 (00:16→22:42)
[2018-11-17] MEDS: SODIUM CHLORIDE FLUSH 0.9% 10 ML SYRINGE IVP SCH ×3 (00:16→16:03)
[2018-11-17] MEDS: KETOROLAC 15 MG/ML VIAL IVP PRN ×2 (03:13→16:03)
[2018-11-17] MEDS: SODIUM CHLORIDE FLUSH 0.9% 10 ML SYRINGE IVP PRN ×2 (03:13→06:02)
[2018-11-17 05:25] LABS: BASOPHILS % (AUTO) 0.3 %; EOSINOPHILS % (AUTO) 0.3 %; HGB - HEMOGLOBIN 13.9 g/dL (12.0-16.0); LYMPHOCYTES # (AUTO) 0.4 10^3/uL (1.5-3.5); LYMPHOCYTES % (AUTO) 10.4 %; MEAN CORPUSCULAR HEMOGLOBIN 29.7 pg (27.0-31.0); MEAN CORPUSCULAR HGB CONC 33.3 g/dL (32.0-36.0); MEAN CORPUSCULAR VOLUME 89.2 fL (81.0-99.0); MEAN PLATELET VOLUME 7.4 fL (7.9-10.8); MONOCYTES # (AUTO) 0.6 10^3/uL (0.0-1.0); MONOCYTES % (AUTO) 13.8 %; NEUTROPHILS % (AUTO) 75.2 %; PLT - PLATELET COUNT 225 10^3/uL (130-450); RED BLOOD COUNT 4.69 10^6/uL (4.20-5.40); RED CELL DISTRIBUTION WIDTH 12.9 % (12.0-15.0); WHITE BLOOD COUNT 4.1 x10^3/uL (4.8-10.8)
[2018-11-17 05:34] LABS: ALBUMIN/GLOBULIN RATIO 1.3 (1.0-2.2); BILIRUBIN,TOTAL 1.8 mg/dL (0.2-1.0); CALCIUM 9.9 mg/dL (8.5-10.3); CREATININE 0.8 mg/dL (0.4-1.0); TOTAL PROTEIN 7.2 g/dL (6.7-8.2)
[2018-11-17] MEDS: PANTOPRAZOLE 40 MG VIAL IVP SCH (06:02)
[2018-11-17] MEDS ORDERED: DIATR MEGLU/DIATRIZOATE SODIUM 120 ML BOTTLE PO ONE (07:19)
--- NOTE | 2018-11-17 07:53 | XRAY Report ---
Reason: SBO Procedure Date: 11/16/2018 Accession Number: [id number] / [id number] Procedure: XR - SBFT Challenge Panel CPT Code: FULL RESULT: EXAM: ABDOMEN RADIOGRAPHY EXAM DATE: 11/16/2018 12:19 PM. CLINICAL HISTORY: Small-bowel obstruction. COMPARISON: ABDOMEN 1 VIEW 11/16/2018 4:04 PM ABDOMEN/PELVIS W/ 11/15/2018 1:20 PM. TECHNIQUE: Multiple frontal views of the abdomen performed immediately after oral administration of Gastrografin, 4 hours following administration, and 12 hours following administration. The immediate image was performed upright. Subsequent images appear to be supine. FINDINGS: Bowel Gas Pattern: On the image performed immediately after enteric contrast administration, contrast opacifies the stomach and dilated loops of proximal small bowel in the left upper quadrant of the abdomen. Proximal small bowel measures up to 4.9 cm in diameter. On subsequent images, the contrast appears more dilute but still primarily opacifies the stomach and dilated loops of proximal small bowel in the left side of the abdomen. There is a moderate amount of formed stool in the ascending colon. At 12 hours, enteric contrast has not yet reached the distal small bowel or colon. Other: The visualized lung bases are clear. No acute osseous abnormality. IMPRESSION: Persistent dilated proximal small bowel, consistent with small-bowel obstruction as seen on recent prior CT. At 12 hours after administration, the enteric contrast has not yet reached the distal small bowel or colon. RADIA
--- NOTE | 2018-11-17 08:34 | ANESTHESIA ---
Pre-Anesthesia VS, & Labs - Diagnosis Diagnosis SBO - Procedure diagnostic laparoscopy, possible relief of small bowel obstruction Vital Signs: Temp Pulse Resp BP Pulse Ox 36.4 C L 84 18 164/72 H 99 11/17/18 07:55 11/17/18 07:55 11/17/18 07:55 11/17/18 07:55 11/17/18 07:55 Height 5 ft 8 in Weight (kg) 70 kg Body Mass Index 23.4 - NPO >8 hours - Is Patient ?: No, Not Applicable - Lab Results Current Lab Results: Laboratory Tests 11/17/18 04:53: Sodium 142, Potassium 3.4 L, Chloride 103, Carbon Dioxide 28, Anion Gap 11.0, BUN 42 H, Creatinine 0.8, Estimated GFR (MDRD) 74 L, Glucose 120 H, Calcium 9.9, Total Bilirubin 1.8 H, AST 14, ALT 14, Alkaline Phosphatase 49, Total Protein 7.2, Albumin 4.0, Globulin 3.2, Albumin/Globulin Ratio 1.3 11/17/18 04:53: WBC 4.1 L, RBC 4.69, Hgb 13.9, Hct 41.8, MCV 89.2, MCH 29.7, MCHC 33.3, RDW 12.9, Plt Count 225, MPV 7.4 L, Neut # (Auto) 3.0, Lymph # (Auto) 0.4 L, [place] # (Auto) 0.6, Eos # (Auto) 0.0, Baso # (Auto) 0.0, Absolute Nucleated RBC 0.00, Nucleated RBC % 0.1 11/16/18 05:00: Sodium 140, Potassium 3.8, Chloride 108, Carbon Dioxide 26, Anion Gap 6.0, BUN 34 H, Creatinine 0.6, Estimated GFR (MDRD) 103, Glucose 114 H , Calcium 8.9, Magnesium 2.2, Total Bilirubin 2.1 H, AST 16, ALT 14, Alkaline Phosphatase 43, Total Protein 6.1 L, Albumin 3.4, Globulin 2.7, Albumin/Globulin Ratio 1.3 11/16/18 05:00: WBC 3.9 L, RBC 4.46, Hgb 13.4, Hct 39.7, MCV 89.1, MCH 30.0, MCHC 33.6, RDW 13.2, Plt Count 197, MPV 7.2 L, Neut # (Auto) 2.8, Lymph # (Auto) 0.4 L, [place] # (Auto) 0.6, Eos # (Auto) 0.1, Baso # (Auto) 0.0, Absolute Nucleated RBC 0.00, Nucleated RBC % 0.1 11/15/18 14:09: Lactic Acid 0.9 11/15/18 12:14: Glycated Hemoglobin 5.5, Estim Average Glucose 111 H 11/15/18 12:14: PT 12.8 H, INR 1.1, APTT 26.3 11/15/18 12:14: Sodium 137, Potassium 3.3 L, Chloride 99 L, Carbon Dioxide 21, Anion Gap 17.0 H, BUN 38 H, Creatinine 0.8, Estimated GFR (MDRD) 74 L, Glucose 169 H, Calcium 10.5 H, Total Bilirubin 2.5 H, AST 20, ALT 17, Alkaline Phosphatase 61, Total Protein 8.5 H, Albumin 4.6, Globulin 3.9, Albumin/Globulin Ratio 1.2, Lipase 28 11/15/18 12:14: WBC 13.3 H, RBC 5.48 H, Hgb 15.9, Hct 47.9 H, MCV 87.4, MCH 29.1, MCHC 33.3, RDW 12.9, Plt Count 284, MPV 7.1 L, Neut # (Auto) Not Reportable, Lymph # (Auto) Not Reportable, [place] # (Auto) Not Reportable, Eos # (Auto) Not Reportable, Baso # (Auto) Not Reportable, Absolute Nucleated RBC Not Reportable, Total Counted 100, Band Neuts % (Manual) 9, Abnorm Lymph % (Manual) 0, Nucleated RBC % Not Reportable, Neutrophils # (Manual) 12.2 H, Lymphocytes # (Manual) 0.7 L, Monocytes # (Manual) 0.4, Eosinophils # (Manual) 0.0, Basophils # (Manual) 0.0, Differential Comment MANUAL DIFFERENTIAL, WBC Morphology NORMAL APPEARANCE, Platelet Estimate NORMAL (130-450,000), Platelet Morphology NORMAL APPEARANCE, RBC Morph Micro Appear NORMAL APPEARANCE Fish Bones: 11/17/18 04:53 11/17/18 04:53 Home Medications and Allergies Home Medications: Ambulatory Orders No Known Home Medications 11/15/18 Active Medications Acetaminophen (Tylenol) 650 mg PO Q4HR PRN PRN Reason: Pain 1 to 4 Enoxaparin Sodium (Lovenox) 40 mg SUBQ DAILY [facility] Last Admin: 11/16/18 08:09 Dose: 40 mg Ceftriaxone Sodium 2 gm/ (Sodium Chloride) 100 mls @ 200 mls/hr IV Q24H [facility] Last Infusion: 11/16/18 13:43 Dose: Infused Sodium Chloride (Normal Saline 0.9%) 1,000 mls @ 100 mls/hr IV .Q10H [facility] Last Admin: 11/16/18 23:42 Dose: 100 mls/hr Ketorolac Tromethamine (Toradol Inj (15mg)) 15 mg IVP Q6HR PRN PRN Reason: PAIN Stop: 11/20/18 15:21 Last Admin: 11/17/18 03:13 Dose: 15 mg Morphine Sulfate (Morphine (Carpuject)) 2 mg IVP Q2H PRN PRN Reason: Pain 8 to 10 Last Admin: 11/16/18 17:09 Dose: 2 mg Ondansetron HCl (Zofran Inj) 4 mg IVP Q4HR PRN PRN Reason: Nausea / Vomiting Last Admin: 11/17/18 06:02 Dose: 4 mg Pantoprazole Sodium (Protonix) 40 mg IVP QDAC [facility] Last Admin: 11/17/18 06:02 Dose: 40 mg Polyethylene Glycol (Miralax) 17 gm PO DAILY [facility] Last Admin: 11/16/18 07:26 Dose: Not Given Sodium Chloride (Normal Saline Flush 0.9%) 10 ml IVP PRN PRN PRN Reason: NEEDED PER PROVIDER ORDERS Last Admin: 11/17/18 06:02 Dose: 10 ml Sodium Chloride (Normal Saline Flush 0.9%) 10 ml IVP 0100,0900,1700 [facility] Last Admin: 11/17/18 06:02 Dose: 10 ml No Known Home Medications 11/15/18 Allergies/Adverse Reactions: Allergies Allergy/AdvReac Type Severity Reaction Status Date / Time prochlorperazine Allergy Cramps Verified 11/15/18 11:41 [From Compazine] Anes History & Medical History - Anesthetic History Anesthesia Complications: reports: No previous complications - Medical History Cardiovascular: reports: None Pulmonary: reports: None Neuro: reports: None Endocrine/Autoimmune: reports: None Smoking Status: Never smoker - Surgical History Gynecologic: section, 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 Exam General: Alert Dental: WNL Mouth Opening: Greater than 4 Fingerbreadths Mallampati classification: II Thyromental Distance: greater than 6 cm Respiratory: Lungs clear Cardiovascular: Regular rate, Normal S1, Normal S2 Mental/Cognitive Status: Alert/Oriented X3 Plan Anesthesia Type: General Consent for Procedure(s) Verified and Reviewed: Yes Code Status: Attempt Resuscitation ASA classification: 2-Mild systemic disease Is this case an emergency?: Yes
[2018-11-17] MEDS ORDERED: BUPIVACAINE 0.5%-EPI 1:200000 PF 30 ML VIAL ONE (09:56)
[2018-11-17] MEDS ORDERED: BUPIVACAINE 0.5%-EPI 1:200000 PF 30 ML VIAL SUBQ ONE (10:03)
[2018-11-17] MEDS: POLYETHYLENE GLYCOL 3350 17 GM PACKET PO SCH (11:19)
[2018-11-17] MEDS: ENOXAPARIN 40 MG/0.4 ML SYRINGE SUBQ SCH (11:19)
[2018-11-17] MEDS ORDERED: LACTATED RINGERS 1,000 ML IV ONE ×3 (13:42)
[2018-11-17] MEDS: SODIUM CHLORIDE 0.9% 1,000 ML IV SCH ×2 (15:30→23:23)
[2018-11-17] MEDS: cefTRIAXone 2 GM in SODIUM CHLORIDE 0.9% MINIBAG 100 ML IV SCH (15:30)
[2018-11-17] MEDS: MORPHINE PCA 50 MG IV PRN (15:49)
--- NOTE | 2018-11-17 16:05 | PROVIDER PROGRESS NOTE ---
Subjective - Prog Note Date Prog Note Date: 11/17/18 Prog Note Time: 16:05 - Subjective Pt reports feeling: Improved Subjective: Delfina appears comfortable now post-operatively. She denies any new symptoms or bleeding. She is thankful for her VENEER SHEET REPAIRER to be used for pain control. She was updated on the success of surgery and ok to have a few ice chips although they will come out in the NG. Current Medications - Current Medications Current Medications: Active Medications: Acetaminophen (Tylenol) 650 mg PO Q4HR PRN Enoxaparin Sodium (Lovenox) 40 mg SUBQ DAILY KHAI Ceftriaxone Sodium 2 gm/ (Sodium Chloride) 100 mls @ 200 mls/hr IV Q24H KHAI Sodium Chloride (Normal Saline 0.9%) 1,000 mls @ 100 mls/hr IV .Q10H KHAI Acetaminophen (Ofirmev) 100 mls @ 400 mls/hr IV Q6HR PRN Ketorolac Tromethamine (Toradol Inj (15mg) 15 mg IVP Q6HR PRN Morphine Sulfate (Morphine (Carpuject) 2 mg IVP Q2H PRN Morphine Sulfate/Sodium Chloride (Morphine System Planning Engineer (Use System Planning Engineer Order Set)) 50 mg IV VENEER SHEET REPAIRER PRN; Protocol Ondansetron HCl (Zofran Inj) 4 mg IVP Q4HR PRN Pantoprazole Sodium (Protonix) 40 mg IVP QDAC KHAI Polyethylene Glycol (Miralax) 17 gm PO DAILY KHAI No Known Home Medications 11/15/18 Objective - Vital Signs/Intake & Output Reviewed Vital Signs: Yes Vital Signs: Vital Signs x48h Temp Pulse Pulse Resp BP BP Pulse Ox 11/17/18 15:29 36.9 C 84 16 132/52 H 99 11/17/18 15:08 36.7 C 73 14 146/60 H 1 L 11/17/18 14:50 37 C 72 16 142/60 H 100 11/17/18 14:45 37 C 73 16 146/69 H 100 11/17/18 14:40 37 C 75 16 150/71 H 100 11/17/18 14:35 36.3 C L 81 16 151/70 H 100 11/17/18 14:30 36.3 C L 68 18 151/74 H 100 11/17/18 14:25 36.4 C L 72 16 149/75 H 100 11/17/18 14:20 36.4 C L 73 18 152/71 H 100 11/17/18 14:15 36.4 C L 72 18 144/67 H 100 11/17/18 14:11 36.4 C L 82 20 157/72 H 100 Intake & Output: Intake & Output 11/14/18 11/15/18 11/16/18 11/17/18 23:59 23:59 23:59 23:59 Intake Total 2300.000 3172.083 1001.667 Output Total 1999 2300 Balance 2300.000 1172.083 -1298.333 - Objective General Appearance: positive: Moderate distress, Lethargic Eyes Bilateral: positive: PERRL ENT: positive: Pharynx nml, No signs of dehydration Neck: positive: Thyroid nml, No JVD, Trachea midline Respiratory: positive: Chest non-tender, No respiratory distress, Other (dimini shed) Cardiovascular: positive: Regular rate & rhythm, No gallop, Systolic murmur Peripheral Pulses: 1+ Radial (R), 1+ Radial (L) Abdomen: positive: Tenderness, Guarding, Hepatomegaly, Abnml bowel sounds, Other (post operative shai- minimal drainage) Back: positive: Nml inspection Skin: positive: No rash, Warm, Dry Extremities: positive: Non-tender, Full ROM, No pedal edema Neurologic/Psychiatric: positive: Oriented x3, CN's nml (2-12), Motor nml, Sensation nml Reflexes: Bicep (R): 3+, Bicep (L): 3+ - Lab Results Fish Bones: 11/17/18 04:53 11/17/18 04:53 Other Labs: Lab Results x24hrs 11/17/18 11/17/18 Range/Units 04:53 04:53 WBC 4.1 L (4.8-10.8) x10^3/uL RBC 4.69 (4.20-5.40) 10^6/uL Hgb 13.9 (12.0-16.0) g/dL Hct 41.8 (37.0-47.0) % MCV 89.2 (81.0-99.0) fL MCH 29.7 (27.0-31.0) pg MCHC 33.3 (32.0-36.0) g/dL RDW 12.9 (12.0-15.0) % Plt Count 225 (130-450) 10^3/uL MPV 7.4 L (7.9-10.8) fL Neut # (Auto) 3.0 (1.5-6.6) 10^3/uL Lymph # (Auto) 0.4 L (1.5-3.5) 10^3/uL [place] # (Auto) 0.6 (0.0-1.0) 10^3/uL Eos # (Auto) 0.0 (0.0-0.7) 10^3/uL Baso # (Auto) 0.0 (0.0-0.1) 10^3/uL Absolute Nucleated RBC 0.00 x10^3/uL Nucleated RBC % 0.1 /100WBC Sodium 142 (135-145) mmol/L Potassium 3.4 L (3.5-5.0) mmol/L Chloride 103 (101-111) mmol/L Carbon Dioxide 28 (21-32) mmol/L Anion Gap 11.0 (6-13) BUN 42 H (6-20) mg/dL Creatinine 0.8 (0.4-1.0) mg/dL Estimated GFR (MDRD) 74 L (>89) Glucose 120 H (70-100) mg/dL Calcium 9.9 (8.5-10.3) mg/dL Total Bilirubin 1.8 H (0.2-1.0) mg/dL AST 14 (10-42) IU/L ALT 14 (10-60) IU/L Alkaline Phosphatase 49 (42-121) IU/L Total Protein 7.2 (6.7-8.2) g/dL Albumin 4.0 (3.2-5.5) g/dL Globulin 3.2 (2.1-4.2) g/dL Albumin/Globulin Ratio 1.3 (1.0-2.2) ABX Reporting Has patient been on IV antibiotics over the past 48 hours?: Yes Assessment/Plan - Problem List (1) Intestinal adhes w/ obst Impression: - This was discovered while in the OR by Dr. Lipscomb and seemed to very dense, extensive and were predominantly located where her uterus once was - Laproscopic procedure turned into an open abdominal surgical procedure - Post op now with midline shai intact with minimal drainage - Morphine VENEER SHEET REPAIRER for post-op use Plan: Continue to monitor, follow recommendations of surgery, assist in monitoring and for discharge orders/ summary Qualifiers: Intestinal obstruction extent: complete Qualified Code(s): K56.52 - Intestinal adhesions [bands] with complete obstruction (2) Small bowel obstruction due to adhesions Impression: - Imaging upon admission confirms a SBO with dilated loops of duodenum and jejunum with bowel contents in the LLQ - Patient continues to have pain in her LLQ - Still with s/s of nausea - Gastro-graffin challenge completed and final imaging showed a continued blockage - General surgery consult, who does recommend surgery today given the patient's lack of improvement Plan: Continue to monitor, follow post-operatively (3) E. coli UTI (urinary tract infection) Impression: - Admission WBC count was 13, now normal - Final culture results grew E. coli UTI with several choices of antibiotics - Patient denies dysuria, or new bladder habits - No recent diarrhea, no other recent illnesses - Now with a lopez post-op Plan: Continue to monitor, continue Rocephin, transition to oral after sensiti vity list (4) Abdominal pain Impression: - Still with complaints, primarily LLQ, now with post-surgical discomfort Plan: Continue VENEER SHEET REPAIRER- Morphine pump post operatively, monitor for improvement Qualifiers: Abdominal location: generalized Qualified Code(s): R10.84 - Generalized abdominal pain (5) Nausea & vomiting Impression: - Patient had ongoing nausea and was pre-medicated for her gastro-graffin study - She vomited several times overnight and yesterday, leading to a decision of surgery this morning - NPO diet for now - NG to LIS Plan: Continue with anti-emetics, monitor N/V, IV fluids
--- NOTE | 2018-11-17 16:24 | OPERATIVE REPORT ---
DATE OF SERVICE: 11/17/2018 Physician: Holden Lipscomb MD DATE OF PROCEDURE: 11/17/2018 PREOPERATIVE DIAGNOSIS: Small bowel obstruction. POSTOPERATIVE DIAGNOSIS: Adhesive bowel obstruction. PROCEDURE: Exploratory laparoscopy converted to laparotomy with lysis of adhesions. INDICATIONS FOR PROCEDURE: The patient is a 58-year-old woman who presented to the ER with the signs and symptoms of acute bowel obstruction. She was initially admitted for observation; however, she failed to improve. Plans were made to take her to the operating room. The patient was in agreement. PROCEDURE IN DETAIL: The risks and benefits were explained to the patient. She agreed to the procedure. She was taken to the operating room and placed under general anesthesia and intubated. The abdomen was prepped and draped. A timeout was performed and everyone in the room agreed with the procedure. Began by making 5 mm incision in the left upper quadrant of the abdomen. Optiview technique was used to enter the abdominal cavity without event and it was then insufflated to 15 mmHg. We immediately noted extensive adhesions associated with the midline incision and down in the pelvis. It initially looked like we could deal with these laparoscopically, so we inserted two more 5 mm trocars under vision from the camera, one below umbilicus and one in the left lower quadrant. We took down some of the adhesions, but it quickly became apparent that it would be impossible to do safely laparoscopically. Therefore, we reopened part of her midline incision from above the pubic symphysis to the umbilicus. We carried this down inside the peritoneal cavity and slowly began to take down the adhesions throughout the cavity. The adhesions were very dense and extensive, and mostly confined to the pelvis where her uterus has been removed. It took quite some time to free up all these adhesions. They were fixated in such a way to create numerous internal hernias and volvuli, one of which was constricting the mid small bowel. Once all the adhesions were taken down, we identified 3 serosal tears in the bowel that were repaired with Vicryl. We were then able to run the bowel from the ligament of Treitz down to the terminal ileum. We identified the transition point. The bowel in entirety was free. We then irrigated the abdominal cavity making sure there was no residual bleeding. I closed the fascia using 0 loop PDS and the overlying skin using shai. This terminated the procedure. The patient tolerated it well. She was taken to recovery in stable condition. INSTRUMENT AND LAP COUNTS: Correct. ESTIMATED BLOOD LOSS: 200 mL COMPLICATIONS: None. SPECIMENS: None. PLAN: Expectant management on the floor. TD: 11/17/2018 13:55 MTDD
[2018-11-18] MEDS: KETOROLAC 15 MG/ML VIAL IVP PRN (02:03)
[2018-11-18] MEDS: SODIUM CHLORIDE FLUSH 0.9% 10 ML SYRINGE IVP SCH ×2 (02:04→22:46)
[2018-11-18] MEDS: SODIUM CHLORIDE 0.9% 1,000 ML IV SCH (02:08)
[2018-11-18 05:33] LABS: BASOPHILS % (AUTO) 0.1 %; HGB - HEMOGLOBIN 12.1 g/dL (12.0-16.0); LYMPHOCYTES # (AUTO) 0.4 10^3/uL (1.5-3.5); LYMPHOCYTES % (AUTO) 6.6 %; MEAN CORPUSCULAR HGB CONC 33.3 g/dL (32.0-36.0); MEAN CORPUSCULAR VOLUME 90.2 fL (81.0-99.0); MEAN PLATELET VOLUME 7.4 fL (7.9-10.8); MONOCYTES # (AUTO) 0.7 10^3/uL (0.0-1.0); NEUTROPHILS # (AUTO) 4.9 10^3/uL (1.5-6.6); NEUTROPHILS % (AUTO) 82.3 %; PLT - PLATELET COUNT 175 10^3/uL (130-450); RED BLOOD COUNT 4.03 10^6/uL (4.20-5.40)
[2018-11-18 05:44] LABS: ALBUMIN 2.9 g/dL (3.2-5.5); ALBUMIN/GLOBULIN RATIO 1.1 (1.0-2.2); BILIRUBIN,TOTAL 1.5 mg/dL (0.2-1.0); CALCIUM 8.2 mg/dL (8.5-10.3); CREATININE 0.7 mg/dL (0.4-1.0); TOTAL PROTEIN 5.6 g/dL (6.7-8.2)
[2018-11-18] MEDS: PANTOPRAZOLE 40 MG VIAL IVP SCH (06:18)
[2018-11-18] MEDS: SODIUM CHLORIDE FLUSH 0.9% 10 ML SYRINGE IVP PRN ×2 (06:23→22:49)
--- NOTE | 2018-11-18 08:37 | PROVIDER PROGRESS NOTE ---
Subjective - General Admit Date: 11/15/18 Procedure Date: 11/17/18 Post Op Days: 1 Procedure Performed: Expl lap, GIGI - Review of Systems Wound/Incisions: positive: No drainage General: positive: Appetite (hungry; no nausea) Gastrointestinal: positive: Abdominal pain (c/o mod postop incisional pain). negative: Nausea, Vomiting, Flatus Objective - Patient Data Reviewed Vital Signs: Yes Vital Signs: Vital Signs x48h Temp Pulse Resp BP Pulse Ox 11/18/18 07:47 36.9 C 83 21 136/59 H 98 11/18/18 06:25 16 11/18/18 05:00 18 11/18/18 04:54 36.7 C 88 16 133/56 H 97 11/18/18 03:00 16 11/18/18 01:20 16 Intake & Output: Intake and Output Totals x24h 11/16/18 11/17/18 11/18/18 23:59 23:59 23:59 Intake Total 3172.083 1201.667 980.000 Output Total 2000 2900 850 Balance 1172.083 -1698.333 130.000 - Lab Results Lab Results: 11/18/18 04:51 11/18/18 04:51 Other Lab Results: Lab Results x24hrs 11/18/18 11/18/18 Range/Units 04:51 04:51 WBC 6.0 (4.8-10.8) x10^3/uL RBC 4.03 L (4.20-5.40) 10^6/uL Hgb 12.1 (12.0-16.0) g/dL Hct 36.3 L (37.0-47.0) % MCV 90.2 (81.0-99.0) fL MCH 30.0 (27.0-31.0) pg MCHC 33.3 (32.0-36.0) g/dL RDW 13.0 (12.0-15.0) % Plt Count 175 (130-450) 10^3/uL MPV 7.4 L (7.9-10.8) fL Neut # (Auto) 4.9 (1.5-6.6) 10^3/uL Lymph # (Auto) 0.4 L (1.5-3.5) 10^3/uL [place] # (Auto) 0.7 (0.0-1.0) 10^3/uL Eos # (Auto) 0.0 (0.0-0.7) 10^3/uL Baso # (Auto) 0.0 (0.0-0.1) 10^3/uL Absolute Nucleated RBC 0.01 x10^3/uL Nucleated RBC % 0.1 /100WBC Sodium 144 (135-145) mmol/L Potassium 3.4 L (3.5-5.0) mmol/L Chloride 106 (101-111) mmol/L Carbon Dioxide 26 (21-32) mmol/L Anion Gap 12.0 (6-13) BUN 36 H (6-20) mg/dL Creatinine 0.7 (0.4-1.0) mg/dL Estimated GFR (MDRD) 86 L (>89) Glucose 110 H (70-100) mg/dL Calcium 8.2 L (8.5-10.3) mg/dL Total Bilirubin 1.5 H (0.2-1.0) mg/dL AST 19 (10-42) IU/L ALT 13 (10-60) IU/L Alkaline Phosphatase 32 L (42-121) IU/L Total Protein 5.6 L (6.7-8.2) g/dL Albumin 2.9 L (3.2-5.5) g/dL Globulin 2.7 (2.1-4.2) g/dL Albumin/Globulin Ratio 1.1 (1.0-2.2) - Current Medications Current Medications: Current Medications Generic Name Dose Route Start Last Admin Trade Name Freq PRN Reason Stop Dose Admin Enoxaparin Sodium 40 mg 11/16/18 09:00 11/17/18 11:19 Lovenox SUBQ Not Given DAILY KHAI Ceftriaxone Sodium 2 gm/ 100 mls @ 200 mls/hr 11/16/18 13:00 11/17/18 16:00 Sodium Chloride IV Infused Q24H KHAI Infusion Morphine Sulfate 2 mg 11/15/18 14:43 11/16/18 17:09 Morphine (Carpuject) IVP 2 mg Q2H PRN Administration Pain 8 to 10 Morphine Sulfate/Sodium Chloride 50 mg 11/17/18 15:30 11/17/18 15:49 Morphine Efficiency Clerk (Use Efficiency Clerk Order Set) IV 50 mg PIANO SOUNDING BOARD MATCHER PRN Administration PAIN Protocol Ondansetron HCl 4 mg 11/16/18 16:56 11/17/18 22:42 Zofran Inj IVP 4 mg Q4HR PRN Administration Nausea / Vomiting Pantoprazole Sodium 40 mg 11/16/18 07:00 11/18/18 06:18 Protonix IVP 40 mg QDAC KHAI Administration Sodium Chloride 10 ml 11/15/18 14:43 11/18/18 06:23 Normal Saline Flush 0.9% IVP 10 ml PRN PRN Administration NEEDED PER PROVIDER ORDERS Sodium Chloride 10 ml 11/15/18 17:00 11/18/18 02:04 Normal Saline Flush 0.9% IVP 10 ml 0100,0900,1700 KHAI Administration - Physical Exam Wound/Incisions: positive: Dressing dry and intact General Appearance: positive: Moderate distress (c/o incisional pain, just got out of bed) Eyes Bilateral: positive: Normal inspection, No scleral icterus ENT: positive: Other (NG in place) Neck: positive: Nml inspection, No JVD Respiratory: positive: Chest non-tender, No respiratory distress, Breath sounds nml Cardiovascular: positive: Regular rate & rhythm, No murmur, No gallop Abdomen: positive: Tenderness (expected incisional tenderness), Abnml bowel sounds (hypoactive), Other (dressing dry/intact;mild distention. hypoactive bowel tones) Extremities: positive: Non-tender, Nml appearance, No pedal edema. negative: Calf tenderness Neurologic/Psychiatric: positive: Oriented x3 ABX Reporting Has patient been on IV antibiotics over the past 48 hours?: Yes Impression/Plan - Problem List Problem List: PO Day 1 s/p exploratory laparotomy and lysis of adhesions for SBO; doing well. Suboptimal pain control at present PLan: Add scheduled ketorolac to scheduled acetaminophen, PIANO SOUNDING BOARD MATCHER; d/c lopez, OOB, pulmonary toilet; add KCL to IVF, ow continue present management.
[2018-11-18] MEDS: ENOXAPARIN 40 MG/0.4 ML SYRINGE SUBQ SCH (08:56)
[2018-11-18] MEDS: ACETAMINOPHEN 1,000 MG/100 ML 100 ML IV PRN ×2 (08:57→15:14)
[2018-11-18] MEDS ORDERED: KETOROLAC 15 MG/ML VIAL IVP SCH ×2 (09:00→11:53)
[2018-11-18] MEDS: D5.45NS W/20 MEQ KCL 1,000 ML IV SCH ×2 (09:16→20:07)
[2018-11-18] MEDS: cefTRIAXone 2 GM in SODIUM CHLORIDE 0.9% MINIBAG 100 ML IV SCH (12:55)
--- NOTE | 2018-11-18 13:34 | PROVIDER PROGRESS NOTE ---
Subjective - Prog Note Date Prog Note Date: 11/18/18 Prog Note Time: 13:31 - Subjective Pt reports feeling: Improved Subjective: Delfina wonders when she can have her NG taken out, but generally feels improved. She states that getting out of bed was painful this morning, but since being up for the day, this has improved. She denies headaches, vomiting, flatus, a new rash, bleeding, or a new cough. She states that she has not been able to urinate since getting out her lopez. Current Medications - Current Medications Current Medications: Active Medications: Enoxaparin Sodium (Lovenox) 40 mg SUBQ DAILY KHAI Ceftriaxone Sodium 2 gm/ (Sodium Chloride) 100 mls @ 200 mls/hr IV Q24H KHAI Acetaminophen (Ofirmev) 100 mls @ 400 mls/hr IV Q6HR PRN Potassium Chloride/Dextrose/Sod Cl (D5.45ns W/20 Meq Kcl) 1,000 mls @ 100 mls/hr IV .Q10H KHAI Ketorolac Tromethamine (Toradol Inj (15mg) 15 mg IVP Q6H KHAI Morphine Sulfate (Morphine (Carpuject) 2 mg IVP Q2H PRN Morphine Sulfate/Sodium Chloride (Morphine Railway Signal Electrician (Use Railway Signal Electrician Order Set)) 50 mg IV FISH ROE TECHNICIAN PRN; Protocol Ondansetron HCl (Zofran Inj) 4 mg IVP Q4HR PRN Pantoprazole Sodium (Protonix) 40 mg IVP QDAC KHAI No Known Home Medications 11/15/18 Objective - Vital Signs/Intake & Output Reviewed Vital Signs: Yes Vital Signs: Vital Signs x48h Temp Pulse Resp BP Pulse Ox 11/18/18 11:00 16 11/18/18 09:00 20 11/18/18 07:47 36.9 C 83 21 136/59 H 98 11/18/18 06:25 16 Intake & Output: Intake & Output 11/15/18 11/16/18 11/17/18 11/18/18 23:59 23:59 23:59 23:59 Intake Total 2300.000 3172.083 1201.667 980.000 Output Total 1999 2900 1150 Balance 2300.000 1172.083 -1698.333 -170.000 - Objective General Appearance: positive: No acute distress, Alert Eyes Bilateral: positive: Normal inspection, PERRL ENT: positive: ENT inspection nml, Pharynx nml, No signs of dehydration Neck: positive: Nml inspection, Thyroid nml, No JVD, Trachea midline Respiratory: positive: Chest non-tender, No respiratory distress, Breath sounds nml Cardiovascular: positive: Regular rate & rhythm, No gallop Peripheral Pulses: 2+ Radial (R), 2+ Radial (L) Abdomen: positive: Tenderness, Guarding, Abnml bowel sounds (hypo-absent diffuse- all quadrants) Back: positive: Nml inspection Skin: positive: Color nml, No rash, Warm, Dry Extremities: positive: Non-tender, Full ROM, Nml appearance, No pedal edema Neurologic/Psychiatric: positive: Oriented x3, CN's nml (2-12), Motor nml, Sensation nml, Mood/affect nml Reflexes: Bicep (R): 4+, Bicep (L): 4+ - Lab Results Fish Bones: 11/18/18 04:51 11/18/18 04:51 Other Labs: Lab Results x24hrs 11/18/18 11/18/18 Range/Units 04:51 04:51 WBC 6.0 (4.8-10.8) x10^3/uL RBC 4.03 L (4.20-5.40) 10^6/uL Hgb 12.1 (12.0-16.0) g/dL Hct 36.3 L (37.0-47.0) % MCV 90.2 (81.0-99.0) fL MCH 30.0 (27.0-31.0) pg MCHC 33.3 (32.0-36.0) g/dL RDW 13.0 (12.0-15.0) % Plt Count 175 (130-450) 10^3/uL MPV 7.4 L (7.9-10.8) fL Neut # (Auto) 4.9 (1.5-6.6) 10^3/uL Lymph # (Auto) 0.4 L (1.5-3.5) 10^3/uL [place] # (Auto) 0.7 (0.0-1.0) 10^3/uL Eos # (Auto) 0.0 (0.0-0.7) 10^3/uL Baso # (Auto) 0.0 (0.0-0.1) 10^3/uL Absolute Nucleated RBC 0.01 x10^3/uL Nucleated RBC % 0.1 /100WBC Sodium 144 (135-145) mmol/L Potassium 3.4 L (3.5-5.0) mmol/L Chloride 106 (101-111) mmol/L Carbon Dioxide 26 (21-32) mmol/L Anion Gap 12.0 (6-13) BUN 36 H (6-20) mg/dL Creatinine 0.7 (0.4-1.0) mg/dL Estimated GFR (MDRD) 86 L (>89) Glucose 110 H (70-100) mg/dL Calcium 8.2 L (8.5-10.3) mg/dL Total Bilirubin 1.5 H (0.2-1.0) mg/dL AST 19 (10-42) IU/L ALT 13 (10-60) IU/L Alkaline Phosphatase 32 L (42-121) IU/L Total Protein 5.6 L (6.7-8.2) g/dL Albumin 2.9 L (3.2-5.5) g/dL Globulin 2.7 (2.1-4.2) g/dL Albumin/Globulin Ratio 1.1 (1.0-2.2) ABX Reporting Has patient been on IV antibiotics over the past 48 hours?: Yes Assessment/Plan - Problem List (1) Intestinal adhes w/ obst Impression: - This was discovered while in the OR by Dr. Lipscomb and seemed to very dense, extensive and were predominantly located where her uterus once was - Laproscopic procedure turned into an open abdominal surgical procedure - Post op now with midline shai under ABD dressing with no obvious drainage - Using Ice packs for comfort - Morphine FISH ROE TECHNICIAN for post-op use, toradol added - Continues with an NG, lopez has been removed Plan: Continue to monitor, follow recommendations of surgery, assist in monitoring and for discharge orders/ summary Qualifiers: Intestinal obstruction extent: complete Qualified Code(s): K56.52 - Intestinal adhesions [bands] with complete obstruction (2) Status post abdominal surgery, follow-up exam Impression: - Now post-op day #2 - Progressing nicely - Dr. Truong examined her, and recommends current cares with NG to LIS, lopez removal (removed ~9AM), ambulation, and pain control - Unsure of NG clamping scheduled, a message was left for Dr. Truong, although likely too soon for attempted removal - NG is clamped while the patient ambulates Plan: Continue post op cares, monitor for improvement (3) E. coli UTI (urinary tract infection) Impression: - Admission WBC count was 13, now normal - Final culture results grew E. coli UTI with several choices of antibiotics - Patient denies dysuria, or new bladder habits - No recent diarrhea, no other recent illnesses - An indwelling lopez was inserted for surgery, now has been removed (9AM), but no urination yet ~4 hours - Will order bladder scans - Unable to change to Augmentin since NPO Plan: Continue to monitor, continue Rocephin, transition to oral after patient is tolerating PO (4) Abdominal pain Impression: - Post-op pain has been better controlled since adding Toradol by surgery - Continues on the morphine FISH ROE TECHNICIAN, ambulating well - Denied pain or nausea on my exam Plan: Continue FISH ROE TECHNICIAN- Morphine pump post operatively, monitor for improvement Qualifiers: Abdominal location: generalized Qualified Code(s): R10.84 - Generalized abdominal pain (5) Nausea & vomiting Impression: - Patient had ongoing nausea and was pre-medicated for her gastro-grafin study prior to surgery - She vomited several times prior to surgery, leading to a decision of surgical intervention - NPO diet for now - NG to LIS, clamped while ambulating - Enjoying ice chips today Plan: Continue with anti-emetics, monitor N/V, IV fluids Qualifiers: Vomiting type: unspecified
[2018-11-18] MEDS: MORPHINE PCA 50 MG IV PRN (14:35)
[2018-11-18] MEDS: KETOROLAC 15 MG/ML VIAL IVP SCH ×2 (15:13→22:49)
[2018-11-19] MEDS: SODIUM CHLORIDE FLUSH 0.9% 10 ML SYRINGE IVP SCH ×3 (01:19→15:35)
[2018-11-19] MEDS: KETOROLAC 15 MG/ML VIAL IVP SCH ×4 (03:03→20:55)
[2018-11-19] MEDS: SODIUM CHLORIDE FLUSH 0.9% 10 ML SYRINGE IVP PRN ×2 (03:04→06:47)
[2018-11-19] MEDS: D5.45NS W/20 MEQ KCL 1,000 ML IV SCH ×3 (04:53→23:59)
[2018-11-19 05:26] LABS: BASOPHILS % (AUTO) 0.3 %; EOSINOPHILS # (AUTO) 0.2 10^3/uL (0.0-0.7); EOSINOPHILS % (AUTO) 3.6 %; HGB - HEMOGLOBIN 10.4 g/dL (12.0-16.0); LYMPHOCYTES # (AUTO) 0.7 10^3/uL (1.5-3.5); LYMPHOCYTES % (AUTO) 11.3 %; MEAN CORPUSCULAR HEMOGLOBIN 30.2 pg (27.0-31.0); MEAN CORPUSCULAR HGB CONC 33.4 g/dL (32.0-36.0); MEAN CORPUSCULAR VOLUME 90.2 fL (81.0-99.0); MEAN PLATELET VOLUME 7.5 fL (7.9-10.8); MONOCYTES # (AUTO) 0.6 10^3/uL (0.0-1.0); MONOCYTES % (AUTO) 9.3 %; NEUTROPHILS # (AUTO) 4.8 10^3/uL (1.5-6.6); NEUTROPHILS % (AUTO) 75.5 %; PLT - PLATELET COUNT 154 10^3/uL (130-450); RED BLOOD COUNT 3.44 10^6/uL (4.20-5.40); RED CELL DISTRIBUTION WIDTH 13.1 % (12.0-15.0); WHITE BLOOD COUNT 6.4 x10^3/uL (4.8-10.8)
[2018-11-19 05:39] LABS: ALBUMIN 2.3 g/dL (3.2-5.5); ALBUMIN/GLOBULIN RATIO 0.8 (1.0-2.2); BILIRUBIN,TOTAL 0.9 mg/dL (0.2-1.0); CALCIUM 8.4 mg/dL (8.5-10.3); CREATININE 0.5 mg/dL (0.4-1.0); TOTAL PROTEIN 5.2 g/dL (6.7-8.2)
[2018-11-19] MEDS: PANTOPRAZOLE 40 MG VIAL IVP SCH (06:42)
--- NOTE | 2018-11-19 07:17 | PROVIDER PROGRESS NOTE ---
Subjective - General Admit Date: 11/15/18 Procedure Date: 11/17/18 Post Op Days: 2 Procedure Performed: Expl lap, GIGI - Review of Systems Wound/Incisions: positive: Dressing dry and intact General: positive: No symptoms Pulmonary: positive: No symptoms Cardiovascular: positive: No symptoms Gastrointestinal: positive: Abdominal pain (c/o mod postop incisional pain, improving; still no flatus/stool). negative: Nausea, Vomiting, Flatus Genitourinary: positive: No symptoms (voiding well with catheter out) - Other Other Information/Narrative: feeling better overall; better pain control, no nausea, voiding well, no flatus/stool yet, using IS, has been OOB Objective - Patient Data Reviewed Vital Signs: Yes Vital Signs: Vital Signs x48h Temp Pulse Resp BP Pulse Ox 11/19/18 06:00 20 11/19/18 04:44 36.8 C 85 18 120/67 94 11/19/18 02:00 18 11/18/18 23:29 37.0 C 80 16 122/52 L 99 Intake & Output: Intake and Output Totals x24h 11/17/18 11/18/18 11/19/18 23:59 23:59 23:59 Intake Total 2661.295 6454.667 876.667 Output Total 2900 2000 710 Balance -1698.333 991.667 166.667 NG out 1000 yesterday - Lab Results Lab Results: 11/19/18 04:35 11/19/18 04:35 Other Lab Results: Lab Results x24hrs 11/19/18 11/19/18 Range/Units 04:35 04:35 WBC 6.4 (4.8-10.8) x10^3/uL RBC 3.44 L (4.20-5.40) 10^6/uL Hgb 10.4 L (12.0-16.0) g/dL Hct 31.1 L (37.0-47.0) % MCV 90.2 (81.0-99.0) fL MCH 30.2 (27.0-31.0) pg MCHC 33.4 (32.0-36.0) g/dL RDW 13.1 (12.0-15.0) % Plt Count 154 (130-450) 10^3/uL MPV 7.5 L (7.9-10.8) fL Neut # (Auto) 4.8 (1.5-6.6) 10^3/uL Lymph # (Auto) 0.7 L (1.5-3.5) 10^3/uL [place] # (Auto) 0.6 (0.0-1.0) 10^3/uL Eos # (Auto) 0.2 (0.0-0.7) 10^3/uL Baso # (Auto) 0.0 (0.0-0.1) 10^3/uL Absolute Nucleated RBC 0.00 x10^3/uL Nucleated RBC % 0.0 /100WBC Sodium 140 (135-145) mmol/L Potassium 3.6 (3.5-5.0) mmol/L Chloride 104 (101-111) mmol/L Carbon Dioxide 28 (21-32) mmol/L Anion Gap 8.0 (6-13) BUN 24 H (6-20) mg/dL Creatinine 0.5 (0.4-1.0) mg/dL Estimated GFR (MDRD) 127 (>89) Glucose 121 H (70-100) mg/dL Calcium 8.4 L (8.5-10.3) mg/dL Total Bilirubin 0.9 (0.2-1.0) mg/dL AST 15 (10-42) IU/L ALT 11 (10-60) IU/L Alkaline Phosphatase 32 L (42-121) IU/L Total Protein 5.2 L (6.7-8.2) g/dL Albumin 2.3 L (3.2-5.5) g/dL Globulin 2.9 (2.1-4.2) g/dL Albumin/Globulin Ratio 0.8 L (1.0-2.2) urine C&S: E. coli S to current antibiotic - Current Medications Current Medications: Current Medications Generic Name Dose Route Start Last Admin Trade Name Freq PRN Reason Stop Dose Admin Enoxaparin Sodium 40 mg 11/16/18 09:00 11/18/18 08:56 Lovenox SUBQ 40 mg DAILY KHAI Administration Acetaminophen 100 mls @ 400 mls/hr 11/17/18 13:59 11/18/18 15:29 Ofirmev IV Infused Q6HR PRN Infusion PAIN Potassium Chloride/Dextrose/Sod Cl 1,000 mls @ 100 mls/hr 11/18/18 09:00 11/19/18 04:53 D5.45ns W/20 Meq Kcl IV 100 mls/hr .Q10H KHAI Administration Ketorolac Tromethamine 15 mg 11/18/18 15:00 11/19/18 03:03 Toradol Inj (15mg) IVP 11/23/18 14:59 15 mg Q6H KHAI Administration Morphine Sulfate 2 mg 11/15/18 14:43 11/16/18 17:09 Morphine (Carpuject) IVP 2 mg Q2H PRN Administration Pain 8 to 10 Morphine Sulfate/Sodium Chloride 50 mg 11/17/18 15:30 11/18/18 14:35 Morphine Motor Vehicle Clerk (Use Motor Vehicle Clerk Order Set) IV 50 mg BILINGUAL RECRUITER PRN Administration PAIN Protocol Ondansetron HCl 4 mg 11/16/18 16:56 11/17/18 22:42 Zofran Inj IVP 4 mg Q4HR PRN Administration Nausea / Vomiting Pantoprazole Sodium 40 mg 11/16/18 07:00 11/19/18 06:42 Protonix IVP 40 mg QDAC KHAI Administration Sodium Chloride 10 ml 11/15/18 14:43 11/19/18 06:47 Normal Saline Flush 0.9% IVP 10 ml PRN PRN Administration NEEDED PER PROVIDER ORDERS Sodium Chloride 10 ml 11/15/18 17:00 11/19/18 01:19 Normal Saline Flush 0.9% IVP Not Given 0100,0900,1700 [facility] - Physical Exam Wound/Incisions: positive: Dressing dry and intact, No drainage General Appearance: positive: No acute distress, Alert Eyes Bilateral: positive: Normal inspection, No scleral icterus ENT: positive: ENT inspection nml, Pharynx nml, No signs of dehydration Neck: positive: Nml inspection, No JVD Respiratory: positive: Chest non-tender, No respiratory distress, Breath sounds nml Cardiovascular: positive: Regular rate & rhythm, No murmur, No gallop Abdomen: positive: Tenderness (mild diffuse tenderness, mild distention), Abnml bowel sounds (present but hypoactive; no flatus/stool yet) Skin: positive: Color nml, No rash, Warm, Dry. negative: Cyanosis Extremities: positive: Non-tender, No pedal edema. negative: Calf tenderness Neurologic/Psychiatric: positive: Oriented x3 ABX Reporting Has patient been on IV antibiotics over the past 48 hours?: Yes Impression/Plan - Problem List Problem List: Doing well PO Day #2 s/p exp lap, GIGI for SBO Rec: OOB more, minimize narcotics, consider adding relistor or similar to help with postop ileus (pt reports prolonged postop ileus following hysterectomy in past) Consider d/c antibiotics as UTI likely treated adequately by now.
[2018-11-19] MEDS ORDERED: METHYLNALTREXONE 12 MG/0.6 ML VIAL SUBQ SCH (08:00)
--- NOTE | 2018-11-19 09:12 | PROVIDER PROGRESS NOTE ---
Subjective - Prog Note Date Prog Note Date: 11/19/18 - Subjective Pt reports feeling: Improved Subjective: pt report her abdomen pain is better controlled. she felt some pain after she ambulated. She denies nausea or vomiting but still no bowel movement or gas passed yet. Pt is still on NG tube and still has lots of GI secretion. Current Medications - Current Medications Current Medications: Active Medications Enoxaparin Sodium (Lovenox) 40 mg SUBQ DAILY [facility] Last Admin: 11/18/18 08:56 Dose: 40 mg Acetaminophen (Ofirmev) 100 mls @ 400 mls/hr IV Q6HR PRN PRN Reason: PAIN Last Infusion: 11/18/18 15:29 Dose: Infused Potassium Chloride/Dextrose/Sod Cl (D5.45ns W/20 Meq Kcl) 1,000 mls @ 100 mls/hr IV .Q10H [facility] Last Admin: 11/19/18 04:53 Dose: 100 mls/hr Ketorolac Tromethamine (Toradol Inj (15mg)) 15 mg IVP Q6H [facility] Stop: 11/23/18 14:59 Last Admin: 11/19/18 03:03 Dose: 15 mg Morphine Sulfate (Morphine (Carpuject)) 2 mg IVP Q2H PRN PRN Reason: Pain 8 to 10 Last Admin: 11/16/18 17:09 Dose: 2 mg Morphine Sulfate/Sodium Chloride (Morphine Aerographer (Use Aerographer Order Set)) 50 mg IV ACCOUNTS CLERK PRN; Protocol PRN Reason: PAIN Last Admin: 11/18/18 14:35 Dose: 50 mg Ondansetron HCl (Zofran Inj) 4 mg IVP Q4HR PRN PRN Reason: Nausea / Vomiting Last Admin: 11/17/18 22:42 Dose: 4 mg Pantoprazole Sodium (Protonix) 40 mg IVP QDAC KHAI Last Admin: 11/19/18 06:42 Dose: 40 mg Sodium Chloride (Normal Saline Flush 0.9%) 10 ml IVP PRN PRN PRN Reason: NEEDED PER PROVIDER ORDERS Last Admin: 11/19/18 06:47 Dose: 10 ml Sodium Chloride (Normal Saline Flush 0.9%) 10 ml IVP 0100,0900,1700 [facility] Last Admin: 11/19/18 09:12 Dose: Not Given No Known Home Medications 11/15/18 Objective - Vital Signs/Intake & Output Reviewed Vital Signs: Yes Vital Signs: Vital Signs x48h Temp Pulse Resp BP Pulse Ox 11/19/18 07:40 37.1 C 86 22 136/70 H 95 11/19/18 06:00 20 11/19/18 04:44 36.8 C 85 18 120/67 94 11/19/18 02:00 18 Intake & Output: Intake & Output 11/16/18 11/17/18 11/18/18 11/19/18 23:59 23:59 23:59 23:59 Intake Total 3172.083 0375.686 5303.667 876.667 Output Total 1999 2900 1999 710 Balance 1172.083 -1698.333 991.667 166.667 - Objective General Appearance: positive: No acute distress, Alert. negative: Lethargic Eyes Bilateral: positive: Normal inspection, PERRL, No lid inflammation, Conjunctivae nml ENT: positive: ENT inspection nml, Pharynx nml, No signs of dehydration. negative: Purulent nasal drainage, Pharyngeal erythema, Oral lesions Neck: positive: Nml inspection, Thyroid nml, No JVD, Trachea midline. negative: Thyromegaly, Lymphadenopathy (R), Lymphadenopathy (L), Stiff neck, Swelling/bruising, Tracheal deviation Respiratory: positive: Chest non-tender, No respiratory distress, Breath sounds nml. negative: Wheezes, Rales, Rhonchi Cardiovascular: positive: Regular rate & rhythm, No murmur, No gallop. negative: Irregularly irregular, Extrasystoles, Tachycardia, Bradycardia, JVD present, Systolic murmur, Diastolic murmur Peripheral Pulses: 2+ Radial (R), 2+ Radial (L), 2+ Dorsalis pedis (R), 2+ Dorsalis pedis (L) Abdomen: positive: No organomegaly, No distention, Abnml bowel sounds (difficult to hear bowel sounds on all quadrants). negative: Tenderness, Guarding, Rebound Back: positive: Nml inspection. negative: CVA tenderness (R), CVA tenderness (L) Skin: positive: Color nml, No rash, Warm, Dry. negative: Cyanosis, Diaphoresis, Pallor Extremities: positive: Non-tender, Full ROM, Nml appearance. negative: Calf tenderness, Joint swelling, Sury's sign/cords Neurologic/Psychiatric: positive: Oriented x3, Motor nml, Sensation nml, Mood/affect nml. negative: Weakness, Sensory loss, Facial droop, Slurred/abnml speech, Depressed mood/affect - Lab Results Fish Bones: 11/19/18 04:35 11/19/18 04:35 Other Labs: Lab Results x24hrs 11/19/18 11/19/18 Range/Units 04:35 04:35 WBC 6.4 (4.8-10.8) x10^3/uL RBC 3.44 L (4.20-5.40) 10^6/uL Hgb 10.4 L (12.0-16.0) g/dL Hct 31.1 L (37.0-47.0) % MCV 90.2 (81.0-99.0) fL MCH 30.2 (27.0-31.0) pg MCHC 33.4 (32.0-36.0) g/dL RDW 13.1 (12.0-15.0) % Plt Count 154 (130-450) 10^3/uL MPV 7.5 L (7.9-10.8) fL Neut # (Auto) 4.8 (1.5-6.6) 10^3/uL Lymph # (Auto) 0.7 L (1.5-3.5) 10^3/uL [place] # (Auto) 0.6 (0.0-1.0) 10^3/uL Eos # (Auto) 0.2 (0.0-0.7) 10^3/uL Baso # (Auto) 0.0 (0.0-0.1) 10^3/uL Absolute Nucleated RBC 0.00 x10^3/uL Nucleated RBC % 0.0 /100WBC Sodium 140 (135-145) mmol/L Potassium 3.6 (3.5-5.0) mmol/L Chloride 104 (101-111) mmol/L Carbon Dioxide 28 (21-32) mmol/L Anion Gap 8.0 (6-13) BUN 24 H (6-20) mg/dL Creatinine 0.5 (0.4-1.0) mg/dL Estimated GFR (MDRD) 127 (>89) Glucose 121 H (70-100) mg/dL Calcium 8.4 L (8.5-10.3) mg/dL Total Bilirubin 0.9 (0.2-1.0) mg/dL AST 15 (10-42) IU/L ALT 11 (10-60) IU/L Alkaline Phosphatase 32 L (42-121) IU/L Total Protein 5.2 L (6.7-8.2) g/dL Albumin 2.3 L (3.2-5.5) g/dL Globulin 2.9 (2.1-4.2) g/dL Albumin/Globulin Ratio 0.8 L (1.0-2.2) ABX Reporting Has patient been on IV antibiotics over the past 48 hours?: No Sepsis Event Note (H) - Evaluation Current Stage of Sepsis: Ruled out Assessment/Plan - Problem List (1) Small bowel obstruction due to adhesions Impression: pt had surgery, now status post surgery management, followup surgeon pt still has no bowel movement or gas passed yet. (2) Status post abdominal surgery, follow-up exam Impression: post-op day #3. pt had hx of prolonged postop ileus following hysterectomy pt report her pain is better controlled Followup surgeon, continue ACCOUNTS CLERK, continue NG tube, pt still has no bowl movement or gas passed yet encourage pt ambulate safely, advise pt avoid opiates as possible per surgeon, add Relistor, hold antibiotics now to restore normal GI genera bact eroides (3) E. coli UTI (urinary tract infection) Impression: Per surgeon recommends, hold Rocephin to restore normal GI genera bacteroides since pt was treated with Rocephin for three days continue lab monitor, vital monitor (4) Abdominal pain Impression: Post-op pain has been better controlled, advise pt avoid opiates as possible for bowel movement (5) Nausea & vomiting resolved, pt has no nausea or vomiting now, pt has NG tube (2) Abdominal pain Qualifiers: Abdominal location: generalized Qualified Code(s): R10.84 - Generalized abdominal pain (3) Nausea & vomiting Qualifiers: Vomiting type: unspecified
[2018-11-19] MEDS: ENOXAPARIN 40 MG/0.4 ML SYRINGE SUBQ SCH (09:32)
[2018-11-19] MEDS ORDERED: NEOSTIGMINE 1 MG/1 ML 10 ML MDV IVP ONE (10:00)
[2018-11-19] MEDS ORDERED: fentaNYL 100 MCG/2 ML VIAL IVP ONE (10:00)
[2018-11-19] MEDS ORDERED: ONDANSETRON 4 MG/2 ML VIAL IVP ONE (10:00)
[2018-11-19] MEDS ORDERED: GLYCOPYRROLATE 1 MG/5 ML VIAL IVP ONE (10:00)
[2018-11-19] MEDS ORDERED: ceFAZolin 1 GM VIAL IV ONE (10:00)
[2018-11-19] MEDS ORDERED: KETOROLAC 30 MG/ML VIAL IVP ONE (10:00)
[2018-11-19] MEDS ORDERED: DEXAMETHASONE 4 MG/ML VIAL IVP ONE (10:00)
[2018-11-19] MEDS ORDERED: fentaNYL 250 MCG/5 ML VIAL IVP ONE (10:00)
[2018-11-19] MEDS ORDERED: LIDOCAINE-MPF 2% 5 ML VIAL IM ONE (10:00)
[2018-11-19] MEDS ORDERED: MIDAZOLAM 2 MG/2 ML VIAL IVP ONE (10:00)
[2018-11-19] MEDS ORDERED: ROCURONIUM 50 MG/5 ML VIAL IVP ONE (10:00)
[2018-11-19] MEDS ORDERED: PROPOFOL 200 MG/20 ML VIAL IVP ONE (10:00)
[2018-11-19] MEDS ORDERED: ACETAMINOPHEN 1,000 MG/100 ML 100 ML IV ONE (10:00)
[2018-11-19] MEDS: ACETAMINOPHEN 1,000 MG/100 ML 100 ML IV PRN (23:58)
[2018-11-20] MEDS: SODIUM CHLORIDE FLUSH 0.9% 10 ML SYRINGE IVP SCH ×3 (02:07→16:24)
[2018-11-20] MEDS: KETOROLAC 15 MG/ML VIAL IVP SCH ×4 (02:56→20:37)
[2018-11-20] MEDS: SODIUM CHLORIDE FLUSH 0.9% 10 ML SYRINGE IVP PRN ×2 (02:57→20:39)
[2018-11-20 05:44] LABS: BASOPHILS % (AUTO) 0.4 %; EOSINOPHILS # (AUTO) 0.4 10^3/uL (0.0-0.7); EOSINOPHILS % (AUTO) 5.9 %; HGB - HEMOGLOBIN 10.4 g/dL (12.0-16.0); LYMPHOCYTES # (AUTO) 0.8 10^3/uL (1.5-3.5); LYMPHOCYTES % (AUTO) 13.5 %; MEAN CORPUSCULAR HEMOGLOBIN 30.4 pg (27.0-31.0); MEAN CORPUSCULAR HGB CONC 34.2 g/dL (32.0-36.0); MEAN CORPUSCULAR VOLUME 88.9 fL (81.0-99.0); MEAN PLATELET VOLUME 7.5 fL (7.9-10.8); MONOCYTES # (AUTO) 0.6 10^3/uL (0.0-1.0); MONOCYTES % (AUTO) 9.1 %; NEUTROPHILS # (AUTO) 4.4 10^3/uL (1.5-6.6); NEUTROPHILS % (AUTO) 71.1 %; PLT - PLATELET COUNT 171 10^3/uL (130-450); RED BLOOD COUNT 3.41 10^6/uL (4.20-5.40); RED CELL DISTRIBUTION WIDTH 12.6 % (12.0-15.0); WHITE BLOOD COUNT 6.2 x10^3/uL (4.8-10.8)
[2018-11-20 05:56] LABS: ALBUMIN 2.5 g/dL (3.2-5.5); ALBUMIN/GLOBULIN RATIO 0.9 (1.0-2.2); BILIRUBIN,TOTAL 0.9 mg/dL (0.2-1.0); CALCIUM 8.4 mg/dL (8.5-10.3); CREATININE 0.5 mg/dL (0.4-1.0); TOTAL PROTEIN 5.4 g/dL (6.7-8.2)
[2018-11-20] MEDS: PANTOPRAZOLE 40 MG VIAL IVP SCH (06:42)
--- NOTE | 2018-11-20 07:43 | PROVIDER PROGRESS NOTE ---
Subjective - General Admit Date: 11/15/18 Procedure Date: 11/17/18 Post Op Days: 3 Procedure Performed: Expl lap, GIGI - Review of Systems Wound/Incisions: positive: Dressing dry and intact, No drainage General: positive: No symptoms Pulmonary: positive: No symptoms Cardiovascular: positive: No symptoms Gastrointestinal: positive: Abdominal pain (now minimal, well controlled with nonnarcotic analgesics), Flatus. negative: Nausea, Vomiting Genitourinary: positive: No symptoms - Other Other Information/Narrative: feeling much better, no longer using any narcotics, passing flatus but no stool yet; no nausea; Objective - Patient Data Reviewed Vital Signs: Yes Vital Signs: Vital Signs x48h Temp Pulse Resp BP Pulse Ox 11/20/18 04:12 36.7 C 74 18 138/61 H 96 11/19/18 23:51 37.0 C 82 18 139/69 H Intake & Output: Intake and Output Totals x24h 11/18/18 11/19/18 11/20/18 23:59 23:59 23:59 Intake Total 2991.667 2786.667 100 Output Total 2000 1785 425 Balance 539.466 9301.667 -325 NG output 600 yesterday; 200 past 12 hours; UO good. - Lab Results Lab Results: 11/20/18 05:10 11/20/18 05:10 Other Lab Results: Lab Results x24hrs 11/20/18 11/20/18 Range/Units 05:10 05:10 WBC 6.2 (4.8-10.8) x10^3/uL RBC 3.41 L (4.20-5.40) 10^6/uL Hgb 10.4 L (12.0-16.0) g/dL Hct 30.3 L (37.0-47.0) % MCV 88.9 (81.0-99.0) fL MCH 30.4 (27.0-31.0) pg MCHC 34.2 (32.0-36.0) g/dL RDW 12.6 (12.0-15.0) % Plt Count 171 (130-450) 10^3/uL MPV 7.5 L (7.9-10.8) fL Neut # (Auto) 4.4 (1.5-6.6) 10^3/uL Lymph # (Auto) 0.8 L (1.5-3.5) 10^3/uL [place] # (Auto) 0.6 (0.0-1.0) 10^3/uL Eos # (Auto) 0.4 (0.0-0.7) 10^3/uL Baso # (Auto) 0.0 (0.0-0.1) 10^3/uL Absolute Nucleated RBC 0.00 x10^3/uL Nucleated RBC % 0.0 /100WBC Sodium 141 (135-145) mmol/L Potassium 3.7 (3.5-5.0) mmol/L Chloride 106 (101-111) mmol/L Carbon Dioxide 26 (21-32) mmol/L Anion Gap 9.0 (6-13) BUN 12 (6-20) mg/dL Creatinine 0.5 (0.4-1.0) mg/dL Estimated GFR (MDRD) 127 (>89) Glucose 115 H (70-100) mg/dL Calcium 8.4 L (8.5-10.3) mg/dL Total Bilirubin 0.9 (0.2-1.0) mg/dL AST 14 (10-42) IU/L ALT 11 (10-60) IU/L Alkaline Phosphatase 34 L (42-121) IU/L Total Protein 5.4 L (6.7-8.2) g/dL Albumin 2.5 L (3.2-5.5) g/dL Globulin 2.9 (2.1-4.2) g/dL Albumin/Globulin Ratio 0.9 L (1.0-2.2) - Current Medications Current Medications: Current Medications Generic Name Dose Route Start Last Admin Trade Name Freq PRN Reason Stop Dose Admin Enoxaparin Sodium 40 mg 11/16/18 09:00 11/19/18 09:32 Lovenox SUBQ 40 mg DAILY KHAI Administration Acetaminophen 100 mls @ 400 mls/hr 11/17/18 13:59 11/20/18 00:46 Ofirmev IV Infused Q6HR PRN Infusion PAIN Potassium Chloride/Dextrose/Sod Cl 1,000 mls @ 100 mls/hr 11/18/18 09:00 23:59 D5.45ns W/20 Meq Kcl IV 100 mls/hr .Q10H KHAI Administration Ketorolac Tromethamine 15 mg 11/18/18 15:00 11/20/18 02:56 Toradol Inj (15mg) IVP 11/23/18 14:59 15 mg Q6H KHAI Administration Morphine Sulfate 2 mg 11/15/18 14:43 11/16/18 17:09 Morphine (Carpuject) IVP 2 mg Q2H PRN Administration Pain 8 to 10 Ondansetron HCl 4 mg 11/16/18 16:56 11/17/18 22:42 Zofran Inj IVP 4 mg Q4HR PRN Administration Nausea / Vomiting Pantoprazole Sodium 40 mg 11/16/18 07:00 11/20/18 06:42 Protonix IVP 40 mg QDAC KHAI Administration Sodium Chloride 10 ml 11/15/18 14:43 11/20/18 02:57 Normal Saline Flush 0.9% IVP 10 ml PRN PRN Administration NEEDED PER PROVIDER ORDERS Sodium Chloride 10 ml 11/15/18 17:00 11/20/18 06:44 Normal Saline Flush 0.9% IVP 10 ml 0100,0900,1700 KHAI Administration - Physical Exam Wound/Incisions: positive: Dressing dry and intact, No drainage General Appearance: positive: No acute distress, Alert Eyes Bilateral: positive: No scleral icterus ENT: positive: ENT inspection nml, Pharynx nml, No signs of dehydration Neck: positive: No JVD Respiratory: positive: Chest non-tender, No respiratory distress, Breath sounds nml. negative: Wheezes, Rales, Rhonchi Cardiovascular: positive: Regular rate & rhythm, No murmur, No gallop Abdomen: positive: No distention (mild), Tenderness (minimal, expected), Abnml bowel sounds (hypoactive). negative: Guarding, Rebound, Hepatomegaly, Splenomegaly, Mass Extremities: positive: Non-tender, No pedal edema. negative: Calf tenderness Neurologic/Psychiatric: positive: Oriented x3 ABX Reporting Has patient been on IV antibiotics over the past 48 hours?: No Impression/Plan - Problem List Problem List: doing well PO Day 3 s/p ex lap, GIGI Rec: d/c NG today; keep NPO except ice chips for now; OOB more, ow as per hospitalists.
[2018-11-20] MEDS: ENOXAPARIN 40 MG/0.4 ML SYRINGE SUBQ SCH (08:36)
[2018-11-20] MEDS: D5.45NS W/20 MEQ KCL 1,000 ML IV SCH (10:35)
--- NOTE | 2018-11-20 13:27 | PROVIDER PROGRESS NOTE ---
Subjective - Prog Note Date Prog Note Date: 11/20/18 - Subjective Pt reports feeling: Improved Subjective: pt report her abdominal pain is well controlled. she had twice flatus but still without bowel movement yet. pt also denies nausea or vomiting, fever, chill, cough, shortness of breath, chest pain. Current Medications - Current Medications Current Medications: Active Medications Enoxaparin Sodium (Lovenox) 40 mg SUBQ DAILY [facility] Last Admin: 11/20/18 08:36 Dose: 40 mg Acetaminophen (Ofirmev) 100 mls @ 400 mls/hr IV Q6HR PRN PRN Reason: PAIN Last Infusion: 11/20/18 00:46 Dose: Infused Potassium Chloride/Dextrose/Sod Cl (D5.45ns W/20 Meq Kcl) 1,000 mls @ 100 mls/hr IV .Q10H [facility] Last Admin: 11/20/18 10:35 Dose: 100 mls/hr Ketorolac Tromethamine (Toradol Inj (15mg)) 15 mg IVP Q6H [facility] Stop: 11/23/18 14:59 Last Admin: 11/20/18 08:36 Dose: 15 mg Morphine Sulfate (Morphine (Carpuject)) 2 mg IVP Q2H PRN PRN Reason: Pain 8 to 10 Last Admin: 11/16/18 17:09 Dose: 2 mg Ondansetron HCl (Zofran Inj) 4 mg IVP Q4HR PRN PRN Reason: Nausea / Vomiting Last Admin: 11/17/18 22:42 Dose: 4 mg Pantoprazole Sodium (Protonix) 40 mg IVP QDAC [facility] Last Admin: 11/20/18 06:42 Dose: 40 mg Sodium Chloride (Normal Saline Flush 0.9%) 10 ml IVP PRN PRN PRN Reason: NEEDED PER PROVIDER ORDERS Last Admin: 11/20/18 02:57 Dose: 10 ml Sodium Chloride (Normal Saline Flush 0.9%) 10 ml IVP 0100,0900,1700 [facility] Last Admin: 11/20/18 06:44 Dose: 10 ml No Known Home Medications 11/15/18 Objective - Vital Signs/Intake & Output Reviewed Vital Signs: Yes Vital Signs: Vital Signs x48h Temp Pulse Resp BP Pulse Ox 11/20/18 07:42 37.0 C 76 14 157/78 H 97 Intake & Output: Intake & Output 11/17/18 11/18/18 11/19/18 11/20/18 23:59 23:59 23:59 23:59 Intake Total 2929.606 3544.667 2786.667 1100 Output Total 2900 2000 1785 1125 Balance -1698.333 460.962 8341.667 -25 - Objective General Appearance: positive: No acute distress, Alert. negative: Lethargic Eyes Bilateral: positive: Normal inspection, PERRL, No lid inflammation, Conju nctivae nml ENT: positive: ENT inspection nml, Pharynx nml, No signs of dehydration. negative: Purulent nasal drainage, Pharyngeal erythema, Oral lesions Neck: positive: Nml inspection, Thyroid nml, No JVD, Trachea midline. negative: Thyromegaly, Lymphadenopathy (R), Lymphadenopathy (L), Stiff neck, Swelling/bruising, Tracheal deviation Respiratory: positive: Chest non-tender, No respiratory distress, Breath sounds nml. negative: Wheezes, Rales, Rhonchi Cardiovascular: positive: Regular rate & rhythm, No murmur, No gallop. negative: Irregularly irregular, Extrasystoles, Tachycardia, Bradycardia, JVD present, Systolic murmur, Diastolic murmur Peripheral Pulses: 2+ Radial (R), 2+ Radial (L), 2+ Dorsalis pedis (R), 2+ Dorsalis pedis (L) Abdomen: positive: No organomegaly, Nml bowel sounds, No distention, Tenderness. negative: Guarding, Rebound Back: positive: Nml inspection. negative: CVA tenderness (R), CVA tenderness (L) Skin: positive: Color nml, No rash, Warm, Dry. negative: Cyanosis, Diaphoresis, Pallor Extremities: positive: Non-tender, Full ROM, Nml appearance. negative: Calf tenderness, Joint swelling, Sury's sign/cords Neurologic/Psychiatric: positive: Oriented x3, Motor nml, Sensation nml, Mood/affect nml. negative: Weakness, Sensory loss, Facial droop, Slurred/abnml speech, Depressed mood/affect - Lab Results Fish Bones: 11/20/18 05:10 11/20/18 05:10 Other Labs: Lab Results x24hrs 11/20/18 11/20/18 Range/Units 05:10 05:10 WBC 6.2 (4.8-10.8) x10^3/uL RBC 3.41 L (4.20-5.40) 10^6/uL Hgb 10.4 L (12.0-16.0) g/dL Hct 30.3 L (37.0-47.0) % MCV 88.9 (81.0-99.0) fL MCH 30.4 (27.0-31.0) pg MCHC 34.2 (32.0-36.0) g/dL RDW 12.6 (12.0-15.0) % Plt Count 171 (130-450) 10^3/uL MPV 7.5 L (7.9-10.8) fL Neut # (Auto) 4.4 (1.5-6.6) 10^3/uL Lymph # (Auto) 0.8 L (1.5-3.5) 10^3/uL [place] # (Auto) 0.6 (0.0-1.0) 10^3/uL Eos # (Auto) 0.4 (0.0-0.7) 10^3/uL Baso # (Auto) 0.0 (0.0-0.1) 10^3/uL Absolute Nucleated RBC 0.00 x10^3/uL Nucleated RBC % 0.0 /100WBC Sodium 141 (135-145) mmol/L Potassium 3.7 (3.5-5.0) mmol/L Chloride 106 (101-111) mmol/L Carbon Dioxide 26 (21-32) mmol/L Anion Gap 9.0 (6-13) BUN 12 (6-20) mg/dL Creatinine 0.5 (0.4-1.0) mg/dL Estimated GFR (MDRD) 127 (>89) Glucose 115 H (70-100) mg/dL Calcium 8.4 L (8.5-10.3) mg/dL Total Bilirubin 0.9 (0.2-1.0) mg/dL AST 14 (10-42) IU/L ALT 11 (10-60) IU/L Alkaline Phosphatase 34 L (42-121) IU/L Total Protein 5.4 L (6.7-8.2) g/dL Albumin 2.5 L (3.2-5.5) g/dL Globulin 2.9 (2.1-4.2) g/dL Albumin/Globulin Ratio 0.9 L (1.0-2.2) ABX Reporting Has patient been on IV antibiotics over the past 48 hours?: No Sepsis Event Note (H) - Evaluation Current Stage of Sepsis: Ruled out Assessment/Plan - Problem List (1) Small bowel obstruction due to adhesions Impression: 11/20 day 3, status post of abdomen surgery. pt report her abdominal pain is well controlled, no N/V. pt also report she had twice of Flatus. But pt does still not have bowel movement yet. encourage pt continue safely walk Per surgeon when pt start diet pt had surgery, now status post surgery management, followup surgeon pt still has no bowel movement or gas passed yet. (2) Status post abdominal surgery, follow-up exam Impression: post-op day #2. pt had hx of prolonged postop ileus following hysterectomy pt report her pain is better controlled Followup surgeon, continue HOLISTIC NUTRITIONIST, continue NG tube, pt still has no bowl movement or gas passed yet encourage pt ambulate safely, advise pt avoid opiates as possible per surgeon, add Relistor, hold antibiotics now to restore normal GI genera bacteroides (3) E. coli UTI (urinary tract infection) Impression: Per surgeon recommends, hold Rocephin to restore normal GI genera bacteroides since pt was treated with Rocephin for three days continue lab monitor, vital monitor (4) Abdominal pain Impression: 11/20 resolved, pt did not need HOLISTIC NUTRITIONIST Post-op pain has been better controlled, advise pt avoid opiates as possible for bowel movement (5) Nausea & vomiting resolved, pt has no nausea or vomiting now, pt has NG tube (2) Abdominal pain Qualifiers: Abdominal location: generalized Qualified Code(s): R10.84 - Generalized abdominal pain (3) Nausea & vomiting Qualifiers: Vomiting type: unspecified
[2018-11-20] MEDS ORDERED: D5.45NS W/20 MEQ KCL 1,000 ML IV SCH (18:12)
[2018-11-21] MEDS: SODIUM CHLORIDE FLUSH 0.9% 10 ML SYRINGE IVP SCH ×4 (01:08→23:44)
[2018-11-21] MEDS: KETOROLAC 15 MG/ML VIAL IVP SCH (03:04)
[2018-11-21] MEDS: SODIUM CHLORIDE FLUSH 0.9% 10 ML SYRINGE IVP PRN ×2 (03:04→06:31)
[2018-11-21 05:44] LABS: BASOPHILS % (AUTO) 0.6 %; EOSINOPHILS # (AUTO) 0.4 10^3/uL (0.0-0.7); EOSINOPHILS % (AUTO) 7.5 %; LYMPHOCYTES # (AUTO) 0.9 10^3/uL (1.5-3.5); LYMPHOCYTES % (AUTO) 15.6 %; MEAN CORPUSCULAR HEMOGLOBIN 29.9 pg (27.0-31.0); MEAN CORPUSCULAR HGB CONC 34.1 g/dL (32.0-36.0); MEAN CORPUSCULAR VOLUME 87.7 fL (81.0-99.0); MEAN PLATELET VOLUME 6.6 fL (7.9-10.8); MONOCYTES # (AUTO) 0.5 10^3/uL (0.0-1.0); MONOCYTES % (AUTO) 9.3 %; NEUTROPHILS # (AUTO) 3.8 10^3/uL (1.5-6.6); PLT - PLATELET COUNT 216 10^3/uL (130-450); RED CELL DISTRIBUTION WIDTH 12.6 % (12.0-15.0); WHITE BLOOD COUNT 5.6 x10^3/uL (4.8-10.8)
[2018-11-21 05:51] LABS: ALBUMIN 2.6 g/dL (3.2-5.5); ALBUMIN/GLOBULIN RATIO 0.9 (1.0-2.2); BILIRUBIN,TOTAL 1.1 mg/dL (0.2-1.0); CALCIUM 8.6 mg/dL (8.5-10.3); CREATININE 0.5 mg/dL (0.4-1.0); TOTAL PROTEIN 5.6 g/dL (6.7-8.2)
[2018-11-21] MEDS: PANTOPRAZOLE 40 MG VIAL IVP SCH (06:32)
[2018-11-21] MEDS ORDERED: IBUPROFEN 600 MG TABLET PO PRN (07:18)
--- NOTE | 2018-11-21 07:23 | PROVIDER PROGRESS NOTE ---
Subjective - General Admit Date: 11/15/18 Procedure Date: 11/17/18 Post Op Days: 4 Procedure Performed: Expl lap, GIGI - Review of Systems Wound/Incisions: positive: Dressing dry and intact, No drainage General: positive: No symptoms Pulmonary: positive: No symptoms Cardiovascular: positive: No symptoms Gastrointestinal: positive: Abdominal pain ( minimal, well controlled with nonnarcotic analgesics), Flatus (and 2 loose bm's overnight). negative: Nausea, Vomiting Genitourinary: positive: No symptoms - Other Other Information/Narrative: feels well; passing flatus and stool; no N/V, voiding well, ambulating well Objective - Patient Data Reviewed Vital Signs: Yes Vital Signs: Vital Signs x48h Temp Pulse Resp BP Pulse Ox 11/20/18 23:59 36.9 C 77 18 158/70 H 97 Intake & Output: Intake and Output Totals x24h 11/19/18 11/20/18 11/21/18 23:59 23:59 23:59 Intake Total 2786.667 2125 Output Total 1785 1125 Balance 9844.569 9643 - Lab Results Lab Results: 11/21/18 05:20 11/21/18 05:20 Other Lab Results: Lab Results x24hrs 11/21/18 11/21/18 Range/Units 05:20 05:20 WBC 5.6 (4.8-10.8) x10^3/uL RBC 3.70 L (4.20-5.40) 10^6/uL Hgb 11.0 L (12.0-16.0) g/dL Hct 32.4 L (37.0-47.0) % MCV 87.7 (81.0-99.0) fL MCH 29.9 (27.0-31.0) pg MCHC 34.1 (32.0-36.0) g/dL RDW 12.6 (12.0-15.0) % Plt Count 216 (130-450) 10^3/uL MPV 6.6 L (7.9-10.8) fL Neut # (Auto) 3.8 (1.5-6.6) 10^3/uL Lymph # (Auto) 0.9 L (1.5-3.5) 10^3/uL [place] # (Auto) 0.5 (0.0-1.0) 10^3/uL Eos # (Auto) 0.4 (0.0-0.7) 10^3/uL Baso # (Auto) 0.0 (0.0-0.1) 10^3/uL Absolute Nucleated RBC 0.00 x10^3/uL Nucleated RBC % 0.0 /100WBC Sodium 139 (135-145) mmol/L Potassium 3.8 (3.5-5.0) mmol/L Chloride 107 (101-111) mmol/L Carbon Dioxide 24 (21-32) mmol/L Anion Gap 8.0 (6-13) BUN 9 (6-20) mg/dL Creatinine 0.5 (0.4-1.0) mg/dL Estimated GFR (MDRD) 127 (>89) Glucose 108 H (70-100) mg/dL Calcium 8.6 (8.5-10.3) mg/dL Total Bilirubin 1.1 H (0.2-1.0) mg/dL AST 16 (10-42) IU/L ALT 14 (10-60) IU/L Alkaline Phosphatase 41 L (42-121) IU/L Total Protein 5.6 L (6.7-8.2) g/dL Albumin 2.6 L (3.2-5.5) g/dL Globulin 3.0 (2.1-4.2) g/dL Albumin/Globulin Ratio 0.9 L (1.0-2.2) - Current Medications Current Medications: Current Medications Generic Name Dose Route Start Last Admin Trade Name Freq PRN Reason Stop Dose Admin Enoxaparin Sodium 40 mg 11/16/18 09:00 11/20/18 08:36 Lovenox SUBQ 40 mg DAILY KHAI Administration Ondansetron HCl 4 mg 11/16/18 16:56 11/17/18 22:42 Zofran Inj IVP 4 mg Q4HR PRN Administration Nausea / Vomiting Sodium Chloride 10 ml 11/15/18 14:43 11/21/18 06:31 Normal Saline Flush 0.9% IVP 10 ml PRN PRN Administration NEEDED PER PROVIDER ORDERS Sodium Chloride 10 ml 11/15/18 17:00 11/21/18 01:08 Normal Saline Flush 0.9% IVP Not Given 0100,0900,1700 [facility] - Physical Exam Wound/Incisions: positive: Dressing dry and intact, No drainage General Appearance: positive: No acute distress, Alert Eyes Bilateral: positive: No scleral icterus ENT: positive: ENT inspection nml, No signs of dehydration Neck: positive: No JVD Respiratory: positive: Chest non-tender, No respiratory distress, Breath sounds nml Cardiovascular: positive: Regular rate & rhythm, No murmur, No gallop Abdomen: positive: Non-tender, Nml bowel sounds. negative: Guarding, Rebound Skin: positive: Color nml, No rash Extremities: positive: Non-tender, No pedal edema. negative: Calf tenderness Neurologic/Psychiatric: positive: Oriented x3 ABX Reporting Has patient been on IV antibiotics over the past 48 hours?: No Impression/Plan - Problem List Problem List: satisfactory postop course Plan: start liquid diet and advance as marina to low residue, change to po analgesics, home tomorrow if continues to improve.
[2018-11-21] MEDS: ENOXAPARIN 40 MG/0.4 ML SYRINGE SUBQ SCH (10:06)
--- NOTE | 2018-11-21 11:09 | PROVIDER PROGRESS NOTE ---
Subjective - Prog Note Date Prog Note Date: 11/21/18 - Subjective Pt reports feeling: Improved Subjective: pt report she is getting improved. her pain is good controlled, she had bowel movement, pt tolerated clear diet. Per surgeon Dr. Trunog recommended, pt is planned to d/c on tomorrow if pt continue improved, and will advance her diet gradually. Current Medications - Current Medications Current Medications: Active Medications Acetaminophen (Tylenol) 650 mg PO Q6H PRN PRN Reason: Pain or Fever > 38C (100.4F) Enoxaparin Sodium (Lovenox) 40 mg SUBQ DAILY [facility] Last Admin: 11/21/18 10:06 Dose: 40 mg Ibuprofen (Motrin) 600 mg PO Q6HR PRN PRN Reason: PAIN Ondansetron HCl (Zofran Inj) 4 mg IVP Q4HR PRN PRN Reason: Nausea / Vomiting Last Admin: 11/17/18 22:42 Dose: 4 mg Sodium Chloride (Normal Saline Flush 0.9%) 10 ml IVP PRN PRN PRN Reason: NEEDED PER PROVIDER ORDERS Last Admin: 11/21/18 06:31 Dose: 10 ml Sodium Chloride (Normal Saline Flush 0.9%) 10 ml IVP 0100,0900,1700 [facility] Last Admin: 11/21/18 10:13 Dose: Not Given No Known Home Medications 11/15/18 Objective - Vital Signs/Intake & Output Vital Signs: Vital Signs x48h Temp Pulse Resp BP Pulse Ox 11/21/18 07:35 36.9 C 68 16 150/78 H 96 Intake & Output: Intake & Output 11/18/18 11/19/18 11/20/18 11/21/18 23:59 23:59 23:59 23:59 Intake Total 2991.667 2786.667 2125 120 Output Total 1999 1785 1125 Balance 192.838 3760.667 1000 120 - Objective General Appearance: positive: No acute distress, Alert. negative: Lethargic Eyes Bilateral: positive: Normal inspection, PERRL, No lid inflammation, Conjunctivae nml ENT: positive: ENT inspection nml, Pharynx nml, No signs of dehydration. negative: Purulent nasal drainage, Pharyngeal erythema, Oral lesions Neck: positive: Nml inspection, Thyroid nml, No JVD, Trachea midline. negative: Thyromegaly, Lymphadenopathy (R), Lymphadenopathy (L), Stiff neck, Swelling/bruising, Tracheal deviation Respiratory: positive: Chest non-tender, No respiratory distress, Breath sounds nml. negative: Wheezes, Rales, Rhonchi Cardiovascular: positive: Regular rate & rhythm, No murmur, No gallop. negative: Irregularly irregular, Extrasystoles, Tachycardia, Bradycardia, JVD present, Systolic murmur, Diastolic murmur Peripheral Pulses: 2+ Radial (R), 2+ Radial (L), 2+ Dorsalis pedis (R), 2+ Dorsalis pedis (L) Abdomen: positive: Non-tender, No organomegaly, Nml bowel sounds, No distention. negative: Tenderness, Guarding, Rebound Back: positive: Nml inspection. negative: CVA tenderness (R), CVA tenderness (L) Skin: positive: Color nml, No rash, Warm, Dry. negative: Cyanosis, Diaphoresis, Pallor Extremities: positive: Non-tender, Full ROM, Nml appearance. negative: Calf tenderness, Joint swelling, Sury's sign/cords Neurologic/Psychiatric: positive: Oriented x3, Motor nml, Sensation nml, Mood/affect nml. negative: Weakness, Sensory loss, Facial droop, Slurred/abnml speech, Depressed mood/affect - Lab Results Fish Bones: 11/21/18 05:20 11/21/18 05:20 Other Labs: Lab Results x24hrs 11/21/18 11/21/18 Range/Units 05:20 05:20 WBC 5.6 (4.8-10.8) x10^3/uL RBC 3.70 L (4.20-5.40) 10^6/uL Hgb 11.0 L (12.0-16.0) g/dL Hct 32.4 L (37.0-47.0) % MCV 87.7 (81.0-99.0) fL MCH 29.9 (27.0-31.0) pg MCHC 34.1 (32.0-36.0) g/dL RDW 12.6 (12.0-15.0) % Plt Count 216 (130-450) 10^3/uL MPV 6.6 L (7.9-10.8) fL Neut # (Auto) 3.8 (1.5-6.6) 10^3/uL Lymph # (Auto) 0.9 L (1.5-3.5) 10^3/uL [place] # (Auto) 0.5 (0.0-1.0) 10^3/uL Eos # (Auto) 0.4 (0.0-0.7) 10^3/uL Baso # (Auto) 0.0 (0.0-0.1) 10^3/uL Absolute Nucleated RBC 0.00 x10^3/uL Nucleated RBC % 0.0 /100WBC Sodium 139 (135-145) mmol/L Potassium 3.8 (3.5-5.0) mmol/L Chloride 107 (101-111) mmol/L Carbon Dioxide 24 (21-32) mmol/L Anion Gap 8.0 (6-13) BUN 9 (6-20) mg/dL Creatinine 0.5 (0.4-1.0) mg/dL Estimated GFR (MDRD) 127 (>89) Glucose 108 H (70-100) mg/dL Calcium 8.6 (8.5-10.3) mg/dL Total Bilirubin 1.1 H (0.2-1.0) mg/dL AST 16 (10-42) IU/L ALT 14 (10-60) IU/L Alkaline Phosphatase 41 L (42-121) IU/L Total Protein 5.6 L (6.7-8.2) g/dL Albumin 2.6 L (3.2-5.5) g/dL Globulin 3.0 (2.1-4.2) g/dL Albumin/Globulin Ratio 0.9 L (1.0-2.2) ABX Reporting Has patient been on IV antibiotics over the past 48 hours?: No Sepsis Event Note (H) - Evaluation Current Stage of Sepsis: Ruled out Assessment/Plan - Problem List (1) Small bowel obstruction due to adhesions Impression: 11/21 pt had a bowel movement and tolerate clear diet, and pt's abdominal pain is controlled followup GI surgeon, plan to d/c on tomorrow advance her diet as tolerated encourage pt ambulate 11/20 day 3, status post of abdomen surgery. pt report her abdominal pain is well controlled, no N/V. pt also report she had twice of Flatus. But pt does still not have bowel movement yet. encourage pt continue safely walk Per surgeon when pt start diet pt had surgery, now status post surgery management, followup surgeon pt still has no bowel movement or gas passed yet. (2) Status post abdominal surgery, follow-up exam Impression: 11/21, pt is doing well, will followup surgeon, advanced her diet as tolerated post-op day #2. pt had hx of prolonged postop ileus following hysterectomy pt report her pain is better controlled Followup surgeon, continue DRUG COORDINATOR, continue NG tube, pt still has no bowl movement or gas passed yet encourage pt ambulate safely, advise pt avoid opiates as possible per surgeon, add Relistor, hold antibiotics now to restore normal GI genera bacteroides (3) E. coli UTI (urinary tract infection) Impression: Per surgeon recommends, hold Rocephin to restore normal GI genera bacteroides since pt was treated with Rocephin for three days continue lab monitor, vital monitor (4) Abdominal pain Impression: 11/20 resolved, pt did not need DRUG COORDINATOR Post-op pain has been better controlled, advise pt avoid opiates as possible for bowel movement (5) Nausea & vomiting resolved, pt has no nausea or vomiting now, pt has NG tube (2) Abdominal pain Qualifiers: Abdominal location: generalized Qualified Code(s): R10.84 - Generalized abdominal pain (3) Nausea & vomiting Qualifiers: Vomiting type: unspecified
[2018-11-21] MEDS: ACETAMINOPHEN 325 MG TABLET PO PRN ×2 (14:24→20:45)
[2018-11-22 05:34] LABS: ALBUMIN 2.7 g/dL (3.2-5.5); ALBUMIN/GLOBULIN RATIO 0.8 (1.0-2.2); BILIRUBIN,TOTAL 0.9 mg/dL (0.2-1.0); CALCIUM 9.4 mg/dL (8.5-10.3); CREATININE 0.5 mg/dL (0.4-1.0); TOTAL PROTEIN 6.2 g/dL (6.7-8.2)
[2018-11-22 05:40] LABS: BASOPHILS % (AUTO) 0.6 %; HGB - HEMOGLOBIN 11.4 g/dL (12.0-16.0); LYMPHOCYTES % (AUTO) 17.4 %; MEAN CORPUSCULAR HEMOGLOBIN 29.4 pg (27.0-31.0); MEAN CORPUSCULAR HGB CONC 33.8 g/dL (32.0-36.0); MEAN CORPUSCULAR VOLUME 86.9 fL (81.0-99.0); MEAN PLATELET VOLUME 6.8 fL (7.9-10.8); MONOCYTES % (AUTO) 13.2 %; NEUTROPHILS % (AUTO) 61.8 %; PLT - PLATELET COUNT 269 10^3/uL (130-450); RED BLOOD COUNT 3.87 10^6/uL (4.20-5.40); RED CELL DISTRIBUTION WIDTH 12.6 % (12.0-15.0); WHITE BLOOD COUNT 6.1 x10^3/uL (4.8-10.8)
[2018-11-22] MEDS: ACETAMINOPHEN 325 MG TABLET PO PRN (05:54)
[2018-11-22 05:57] LABS: ABNORMAL LYMPHS % (MANUAL) 0 %
[2018-11-22 06:18] LABS: BAND NEUTROPHILS % (MANUAL) 3 %; DIFFERENTIAL COMMENT MANUAL DIFFERENTIAL; EOSINOPHILS # (MANUAL) 0.2 10^3/uL (0-0.7); LYMPHOCYTES # (MANUAL) 0.8 10^3/uL (1.5-3.5); LYMPHOCYTES % (MANUAL) 13 %; METAMYELOCYTES % (MANUAL) 1 %; MONOCYTES # (MANUAL) 0.4 10^3/uL (0.0-1.0); MYELOCYTES % (MANUAL) 1 %; NEUTROPHILS # (MANUAL) 4.6 10^3/uL (1.5-6.6); NEUTROPHILS % (MANUAL) 72 %; PLATELET ESTIMATE, MANUAL NORMAL (130-450,000) (NORMAL); RBC MORPHOLOGY (MULTIPLE) NORMAL APPEARANCE (NORMAL)
[2018-11-22 08:08] VITALS: BP 156/81
[2018-11-22] MEDS: ENOXAPARIN 40 MG/0.4 ML SYRINGE SUBQ SCH (08:22)
[2018-11-22] MEDS: SODIUM CHLORIDE FLUSH 0.9% 10 ML SYRINGE IVP SCH (08:22)
--- NOTE | 2018-11-22 09:07 | Discharge Plan ---
Discharge Plan Disposition: 01 Home, Self Care Condition: Poor Diet: Regular Activity Restrictions: Activity as Tolerated Instruction Topics: Abdomen Surg Dc, Incision Care Abdomen Dc Additional Instructions or Follow Up instructions: you may followup your PCP in two weeks, and followup DR. Jin Truong in one week. You tolerated regular diet and had bowel movement status post of your abdominal surgery. Should your symptoms return or worsen, you may present ER, call 911 or your PCP for help. No Smoking: If you smoke, Please STOP! Call for help.
--- NOTE | 2018-11-22 09:21 | DISCHARGE SUMMARY ---
"Discharge Summary Discharge Date: 11/22/18 Discharging Provider: SCOTT Condition at Discharge: Poor Discharge Disposition: Home, Self Care Discharge Facility Name: home - DIAGNOSES Admission Diagnoses: (1) Small bowel obstruction due to adhesions (2) Abdominal pain (3) Nausea & vomiting Discharge Diagnoses with Status of Each Condition: (1) Small bowel obstruction due to adhesions (2) Status post abdominal surgery, follow-up exam (3) E. coli UTI (urinary tract infection) (4) Abdominal pain (5) Nausea & vomiting - HPI History of Present Illness: Ms. Renae is 58-yrs-old previous healthy female who present ER complain of abdominal pain. pt report she started diffused abdominal pain since 8pm on last night, then she start to have Nausea and once of Vomiting (once), and Loss of appetite. She thought she will become better but gradually she feel worsening. She denies fever, chill, chest pain, cough, wheezing, shortness of breath. CT of abdomen reveals small bowel obstruction. surgeon Dr. Lipscomb was called. In Lab test, pt has slight elevated BUN, and total bili 2.5, and elevated WBC 13.3. Otherwise pt is hemodynamic stable. pt is admitted for further evaluation and treatment of small bowel obstruction. - CONSULTS | PROCEDURES Consultations: Dr. Jin Truong Procedures: Expl lap, GIGI - HOSPITAL COURSE Hospital Course: (1) Small bowel obstruction due to adhesions Great recovery from her surgery. pt tolerate regular diet, have twice bowel movement. Pt has no abdominal pain, nausea or vomiting. pt had surgery of exploratory laparotomy and lysis of adhesions. advise pt followup Dr. Truong in one week (2) Status post abdominal surgery, follow-up exam Great recovery from her surgery. pt tolerate regular diet, have twice bowel movement. Pt has no abdominal pain, nausea or vomiting. advise pt followup Dr. Truong in one week (3) E. coli UTI (urinary tract infection) treated with Rocephin. pt was recommended by surgeon to hold antibiotics. pt denies dysuria or hematuria, WBC was normal. resolved (4) Abdominal pain resolved (5) Nausea & vomiting resolved - ALLERGIES Allergies/Adverse Reactions: Allergies Allergy/AdvReac Type Severity Reaction Status Date / Time prochlorperazine Allergy Cramps Verified 11/15/18 11:41 [From Compazine] - MEDICATIONS Home Medications: Ambulatory Orders Medication Instructions Recorded Confirmed No Known Home Medications 11/15/18 11/15/18 - PHYSICAL EXAM AT DISCHARGE General Appearance: positive: No acute distress, Alert. negative: Lethargic Eyes Bilateral: positive: Normal inspection, PERRL, No lid inflammation, Conjunctivae nml ENT: positive: ENT inspection nml, Pharynx nml, No signs of dehydration. negative: Purulent nasal drainage, Pharyngeal erythema, Oral lesions Neck: positive: Nml inspection, Thyroid nml, No JVD, Trachea midline. negative: Thyromegaly, Lymphadenopathy (R), Lymphadenopathy (L), Stiff neck, Swelling/bruising, Tracheal deviation Respiratory: positive: Chest non-tender, No respiratory distress, Breath sounds nml. negative: Wheezes, Rales, Rhonchi Cardiovascular: positive: Regular rate & rhythm, No murmur, No gallop. negative: Irregularly irregular, Extrasystoles, Tachycardia, Bradycardia, JVD present, Systolic murmur, Diastolic murmur Peripheral Pulses: positive: 2+ Abdomen: positive: Non-tender, No organomegaly, Nml bowel sounds, No distention. negative: Tenderness, Guarding, Rebound Back: positive: Nml inspection. negative: CVA tenderness (R), CVA tenderness (L) Skin: positive: Color nml, No rash, Warm, Dry. negative: Cyanosis, Diaphoresis, Pallor Extremities: positive: Non-tender, Full ROM, Nml appearance. negative: Calf tenderness, Joint swelling, Sury's sign/cords Neurologic/Psychiatric: positive: Oriented x3, Motor nml, Sensation nml, Mood/affect nml. negative: Weakness, Sensory loss, Facial droop, Slurred/abnml speech, Depressed mood/affect - LABS Result Diagrams: 11/22/18 04:35 11/22/18 04:35 - SEPSIS Current Stage of Sepsis: Ruled out - FOLLOW UP Follow Up: you may followup your PCP in two weeks, and followup DR. Jin Truong in one week. You tolerated regular diet and had bowel movement status post of your abdominal surgery. Should your symptoms return or worsen, you may present ER, call 911 or your PCP for help. - TIME SPENT Time Spent in Discharge (Minutes): 55"
--- NOTE | 2018-11-22 12:00 | PROVIDER PROGRESS NOTE ---
Subjective - General Admit Date: 11/15/18 Procedure Date: 11/17/18 Post Op Days: 5 Procedure Performed: Expl lap, GIGI - Review of Systems Wound/Incisions: positive: Dressing dry and intact, No drainage General: positive: No symptoms Pulmonary: positive: No symptoms Cardiovascular: positive: No symptoms Gastrointestinal: positive: Abdominal pain ( minimal, well controlled with nonnarcotic analgesics), Flatus (and formed stool this am). negative: Nausea, Vomiting Genitourinary: positive: No symptoms - Other Other Information/Narrative: feels well; wants to go home; tolerating full liq diet ambulating, voiding, moving bowels well. Objective - Patient Data Reviewed Vital Signs: Yes Vital Signs: Vital Signs x48h Temp Pulse Resp BP Pulse Ox 11/22/18 08:06 36.8 C 74 16 156/81 H 98 Intake & Output: Intake and Output Totals x24h 11/20/18 11/21/18 11/22/18 23:59 23:59 23:59 Intake Total 2125 2380 270 Output Total 1125 Balance 1000 2380 270 - Lab Results Lab Results: 11/22/18 04:35 11/22/18 04:35 Other Lab Results: Lab Results x24hrs 11/22/18 11/22/18 Range/Units 04:35 04:35 WBC 6.1 (4.8-10.8) x10^3/uL RBC 3.87 L (4.20-5.40) 10^6/uL Hgb 11.4 L (12.0-16.0) g/dL Hct 33.6 L (37.0-47.0) % MCV 86.9 (81.0-99.0) fL MCH 29.4 (27.0-31.0) pg MCHC 33.8 (32.0-36.0) g/dL RDW 12.6 (12.0-15.0) % Plt Count 269 (130-450) 10^3/uL MPV 6.8 L (7.9-10.8) fL Neut # (Auto) Not Reportable Lymph # (Auto) Not Reportable [place] # (Auto) Not Reportable Eos # (Auto) Not Reportable Baso # (Auto) Not Reportable Absolute Nucleated RBC Not Reportable Total Counted 100 Band Neuts % (Manual) 3 (0 - 10) % Abnorm Lymph % (Manual) 0 % Metamyelocytes % 1 H ( - 0) % Myelocytes % 1 H ( - 0) % Nucleated RBC % Not Reportable Neutrophils # (Manual) 4.6 (1.5-6.6) 10^3/uL Lymphocytes # (Manual) 0.8 L (1.5-3.5) 10^3/uL Monocytes # (Manual) 0.4 (0.0-1.0) 10^3/uL Eosinophils # (Manual) 0.2 (0-0.7) 10^3/uL Basophils # (Manual) 0.0 (0-0.1) 10^3/uL Differential Comment MANUAL DIFFERENTIAL Platelet Estimate NORMAL (130-450,000) (NORMAL) RBC Morph Micro Appear NORMAL APPEARANCE (NORMAL) Sodium 140 (135-145) mmol/L Potassium 3.8 (3.5-5.0) mmol/L Chloride 104 (101-111) mmol/L Carbon Dioxide 25 (21-32) mmol/L Anion Gap 11.0 (6-13) BUN 10 (6-20) mg/dL Creatinine 0.5 (0.4-1.0) mg/dL Estimated GFR (MDRD) 127 (>89) Glucose 101 H (70-100) mg/dL Calcium 9.4 (8.5-10.3) mg/dL Total Bilirubin 0.9 (0.2-1.0) mg/dL AST 51 H (10-42) IU/L ALT 59 (10-60) IU/L Alkaline Phosphatase 67 (42-121) IU/L Total Protein 6.2 L (6.7-8.2) g/dL Albumin 2.7 L (3.2-5.5) g/dL Globulin 3.5 (2.1-4.2) g/dL Albumin/Globulin Ratio 0.8 L (1.0-2.2) - Physical Exam Wound/Incisions: positive: Healing well General Appearance: positive: No acute distress, Alert Eyes Bilateral: positive: No scleral icterus ENT: positive: No signs of dehydration Neck: positive: No JVD Abdomen: positive: Non-tender, Nml bowel sounds, No distention Extremities: positive: No pedal edema. negative: Calf tenderness Neurologic/Psychiatric: positive: Oriented x3 Impression/Plan - Problem List Problem List: doing well PO Day 5 Plan: home today on low residue diet, precautions given, non narcotic analgesics, f/u my office 1 week.
== END 2018-11-22 10:26 | disposition home or self-care (01) | DRG 336 ==
LOC: ED 11:30 → MS2 14:43 → MERGE 14:43
PROVIDERS: ADMIT Nurse Practitioner Gerontology; ATTEND Nurse Practitioner Gerontology
PROC: 0DN80ZZ Release Small Intestine, Open Approach (ICD-10-PCS; 2018-11-17)
PROC: 0WJP4ZZ Inspection of Gastrointestinal Tract, Percutaneous Endoscopic Approach (ICD-10-PCS; principal; 2018-11-17 09:32)
DX: K56.52 Intestinal adhesions [bands] with complete obstruction (principal); N39.0 Urinary tract infection, site not specified; K56.2 Volvulus; B96.20 Unspecified Escherichia coli [E. coli] as the cause of diseases classified elsewhere; Z90.710 Acquired absence of both cervix and uterus; Z87.891 Personal history of nicotine dependence; Z87.19 Personal history of other diseases of the digestive system; Z53.31 Laparoscopic surgical procedure converted to open procedure
CPT/HCPCS: 36415; 74177; 74250; 80053; 81001; 83036; 83605; 83690; 83735; 85025; 85610; 85730; 87086; 87181; 96361; 96365; 96375; 99283; 99284; A9270; J0131; J1650; J2060; J2212; J3010; J7120; Q9963; Q9967; 74018; 81003

== ENCOUNTER 2018-11-28 08:54 | Inpatient (IN) | payer BC, OTHER ==
[2018-11-28] MEDS ORDERED: SODIUM CHLORIDE 0.9% 1,000 ML IV ONE ×2 (09:37→11:46)
[2018-11-28] MEDS ORDERED: ONDANSETRON 4 MG/2 ML VIAL IVP STA (10:03)
[2018-11-28] MEDS ORDERED: fentaNYL 100 MCG/2 ML VIAL IVP STA ×2 (10:03→12:01)
--- NOTE | 2018-11-28 10:08 | ED Physician Documentation ---
PD HPI ABD PAIN - Stated complaint Stated Complaint: ABD PX/WEAKNESS POST ABD ELROY - Chief complaint Chief Complaint: Abd Pain - History obtained from History obtained from: Patient, Family () - History of Present Illness Timing - onset: How many days ago (4) Timing - details: Gradual onset, Still present Quality: Cramping Location: All over / everywhere Associated symptoms: Vomiting (Once last night.), Diarrhea Recently seen: Surgery (11 days S/P Lysis of Adhesions.) - Additional information Additional information: The patient is a 58-year-old female who is 11 days status post lysis of adhesions, who presents with abdominal pain that has been worsening over the past 4 or 5 days. She describes it as an intermittent cramping sharp pain. She has had episodic diarrhea. She had one episode of vomiting last night. She den ies fever or dysuria. She was discharged from the hospital 6 days ago, and was doing well the first day at home. She has been using Advil for pain. Review of Systems Constitutional: reports: Fatigue. denies: Fever Ears: denies: Tinnitus/ringing Nose: denies: Congestion Throat: denies: Sore throat Cardiac: denies: Chest pain / pressure Respiratory: denies: Dyspnea, Cough GI: reports: Abdominal Swelling, Vomiting (once), Diarrhea : denies: Dysuria Skin: denies: Rash Musculoskeletal: denies: Back pain Neurologic: denies: Focal weakness, Numbness, Headache PD PAST MEDICAL HISTORY - Past Medical History Cardiovascular: None Respiratory: None Neuro: None Endocrine/Autoimmune: None GI: None : None HEENT: None Psych: None Musculoskeletal: None Derm: None - Past Surgical History Past Surgical History: Yes General: Other (Lysis of Adhesions 11/17/18.) /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, 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 - Present Medications Home Medications: Ambulatory Orders Medication Instructions Recorded Confirmed No Known Home Medications 11/28/18 11/28/18 - Allergies Allergies/Adverse Reactions: Allergies Allergy/AdvReac Type Severity Reaction Status Date / Time prochlorperazine Allergy Cramps Verified 11/28/18 09:25 [From Compazine] prochlorperazine edisylate * Allergy Cramps Verified 11/28/18 09:25 [From Compazine] prochlorperazine maleate * Allergy Cramps Verified 11/28/18 09:25 [From Compazine] - Social History Does the pt smoke?: No Smoking Status: Never smoker Does the pt drink ETOH?: No PD ED PE NORMAL - Vitals Vital signs reviewed: Yes (Initially tachycardic.) - General General: Alert and oriented X 3, Well developed/nourished - HEENT HEENT: Atraumatic, EOMI, Pharynx benign, Other (Dry oral mucosa.) - Neck Neck: Supple, no meningeal sign, No adenopathy - Cardiac Cardiac: RRR - Respiratory Respiratory: No respiratory distress, Clear bilaterally - Abdomen Abdomen: Soft, Other (Diffuse mild tenderness to palpation, without rebound or guarding. There is a midline surgical scar that is intact with shai and appears to be healing well.) - Back Back: No CVA TTP - Derm Derm: No rash - Extremities Extremities: No edema, No calf tenderness / cord - Neuro Neuro: Alert and oriented X 3, No motor deficit, No sensory deficit Results - Vitals Vitals: Vital Signs - 24 hr 11/28/18 11/28/18 11/28/18 09:07 11:22 12:16 Temperature 36.7 C Heart Rate 120 H 92 103 H Respiratory 20 21 22 Rate Blood Pressure 142/92 H 141/61 H 141/61 H O2 Saturation 100 96 100 11/28/18 13:49 Temperature 36.6 C Heart Rate 104 H Respiratory 24 Rate Blood Pressure O2 Saturation 95 Oxygen O2 Source Room air - Labs Labs: Laboratory Tests 11/28/18 11/28/18 11/28/18 10:00 10:00 10:10 WBC 13.5 H RBC 4.46 Hgb 13.1 Hct 38.5 MCV 86.2 MCH 29.3 MCHC 34.0 RDW 13.0 Plt Count 407 MPV 6.4 L Neut # (Auto) 11.6 H Lymph # (Auto) 0.8 L [place] # (Auto) 1.0 Eos # (Auto) 0.1 Baso # (Auto) 0.0 Absolute Nucleated RBC 0.00 Nucleated RBC % 0.0 Sodium 133 L Potassium 4.2 Chloride 95 L Carbon Dioxide 24 Anion Gap 14.0 H BUN 22 H Creatinine 0.8 Estimated GFR (MDRD) 74 L Glucose 121 H Lactic Acid 1.3 Calcium 10.1 Total Bilirubin 1.1 H AST 14 ALT 32 Alkaline Phosphatase 82 Total Protein 7.5 Albumin 3.4 Globulin 4.1 Albumin/Globulin Ratio 0.8 L Lipase 30 Urine Color Urine Clarity Urine pH Ur Specific [place] Urine Protein Urine Glucose (UA) Urine Ketones Urine Occult Blood Urine Nitrite Urine Bilirubin Urine Urobilinogen Ur Leukocyte Esterase Ur Microscopic Review Urine Culture Comments 11/28/18 10:55 WBC RBC Hgb Hct MCV MCH MCHC RDW Plt Count MPV Neut # (Auto) Lymph # (Auto) [place] # (Auto) Eos # (Auto) Baso # (Auto) Absolute Nucleated RBC Nucleated RBC % Sodium Potassium Chloride Carbon Dioxide Anion Gap BUN Creatinine Estimated GFR (MDRD) Glucose Lactic Acid Calcium Total Bilirubin AST ALT Alkaline Phosphatase Total Protein Albumin Globulin Albumin/Globulin Ratio Lipase Urine Color YELLOW Urine Clarity CLEAR Urine pH 5.5 Ur Specific [place] <=1.005 Urine Protein TRACE Urine Glucose (UA) NEGATIVE Urine Ketones 15 H Urine Occult Blood TRACE-INTA Urine Nitrite NEGATIVE Urine Bilirubin NEGATIVE Urine Urobilinogen 0.2 (NORMAL) Ur Leukocyte Esterase NEGATIVE Ur Microscopic Review NOT INDICATED Urine Culture Comments NOT INDICATED - Rads (name of study) CT abd/pelvis Radiology: Prelim report reviewed, EMP read contemporaneously, See rad report (1)Overall appearance is concerning for recurrent small bowel obstruction with transition in the mid upper pelvis. Distal small bowel loops are collapsed. Small bowel loops in the central abdomen are dilated to 6 cm diameter, previously 4 cm diameter on preoperative CT. Small bowel feces sign noted within small bowel loops in the left upper hemipelvis, which is more often seen with obstruction than ileus. 2)Cholelithiasis.) PD MEDICAL DECISION MAKING - ED course Complexity details: reviewed old records, reviewed results, re-evaluated patient, d/w patient, d/w family, d/w agriculture consultant ED course: The patient's presentation is most consistent with small bowel obstruction 1-1/2 weeks status post abdominal surgery for lysis of adhesions. CT scan reveals dilated loops of proximal small bowel in an obstructive pattern. There is no free air or evidence of abscess. Treatment in the emergency department included administration of normal saline IV, fentanyl 50 mcg IV x2, morphine 4 mg IV, lorazepam 0.5 mg, and zofran 4 mg IV. I discussed her condition with Dr. Goldsmith who accepts her for further evaluation and treatment. A nasogastric tube was inserted. Departure - Departure Disposition: [facility] DC/Xfer Clinical Impression: Small bowel obstruction Condition: Stable Discharge Date/Time: 11/28/18 17:01
[2018-11-28 10:11] LABS: BASOPHILS % (AUTO) 0.2 %; EOSINOPHILS # (AUTO) 0.1 10^3/uL (0.0-0.7); EOSINOPHILS % (AUTO) 0.4 %; HGB - HEMOGLOBIN 13.1 g/dL (12.0-16.0); LYMPHOCYTES # (AUTO) 0.8 10^3/uL (1.5-3.5); LYMPHOCYTES % (AUTO) 5.6 %; MEAN CORPUSCULAR HEMOGLOBIN 29.3 pg (27.0-31.0); MEAN CORPUSCULAR VOLUME 86.2 fL (81.0-99.0); MEAN PLATELET VOLUME 6.4 fL (7.9-10.8); MONOCYTES % (AUTO) 7.6 %; NEUTROPHILS # (AUTO) 11.6 10^3/uL (1.5-6.6); NEUTROPHILS % (AUTO) 86.2 %; PLT - PLATELET COUNT 407 10^3/uL (130-450); RED BLOOD COUNT 4.46 10^6/uL (4.20-5.40); WHITE BLOOD COUNT 13.5 x10^3/uL (4.8-10.8)
[2018-11-28] MEDS ORDERED: IOVERSOL 320 100 ML VIAL IVP ONE ×2 (10:12→17:09)
[2018-11-28 10:32] LABS: ALBUMIN 3.4 g/dL (3.2-5.5); ALBUMIN/GLOBULIN RATIO 0.8 (1.0-2.2); BILIRUBIN,TOTAL 1.1 mg/dL (0.2-1.0); CALCIUM 10.1 mg/dL (8.5-10.3); CREATININE 0.8 mg/dL (0.4-1.0); TOTAL PROTEIN 7.5 g/dL (6.7-8.2)
--- NOTE | 2018-11-28 11:20 | CT Report ---
Reason: abd pain 11 days S/P Lysis of adhesions Procedure Date: 11/28/2018 Accession Number: [id number] / [id number] Procedure: CT - Abdomen/Pelvis W CPT Code: FULL RESULT: EXAM: CT ABDOMEN AND PELVIS EXAM DATE: 11/28/2018 10:54 AM. CLINICAL HISTORY: Abdominal pain 11 days status post lysis of adhesions. COMPARISONS: ABDOMEN/PELVIS W/ 11/15/2018 1:20 PM. TECHNIQUE: Routine helical CT imaging was performed through the abdomen and pelvis. IV contrast: 100 mL Optiray 320. Enteric contrast: No. Reconstructions: Coronal and sagittal. In accordance with CT protocol optimization, one or more of the following dose reduction techniques were utilized for this exam: automated exposure control, adjustment of mA and/or KV based on patient size, or use of iterative reconstructive technique. FINDINGS: Lung Bases: Unremarkable. Liver: Several tiny liver low attenuation foci are too small to characterize and are probably from small cysts. Focal fat to the right of falciform ligament. No suspicious liver mass. Gallbladder/Bile Ducts: Dependent gallstones. Spleen: Normal. Pancreas: Normal. Adrenal Glands: Normal. Kidneys: Normal. No masses or hydronephrosis. Peritoneal Cavity/Bowel: No free intraperitoneal air. Small amount of free fluid within pelvis appears similar to preoperative CT. Significant dilatation of mid small bowel loops with 6 cm diameter, previously 4 cm. Distal small bowel loops are collapsed. Small bowel feces sign is noted within left hemipelvis on axial image 74. There is mesenteric edema within the upper pelvis. Ventral skin shai. Probable right periumbilical postoperative seroma measuring 2.2 x 1.3 cm on axial image 45. Pelvic Organs: Prior hysterectomy. Bladder is mostly collapsed. Vasculature: No aneurysms or other significant abnormality. Bones: No significant abnormality. Other: None. IMPRESSION: 1. Overall appearance is concerning for recurrent small bowel obstruction with transition in mid to upper pelvis. Distal small bowel loops are collapsed. Small bowel loops in central abdomen are dilated to 6 cm diameter, previously 4 cm diameter on preoperative CT. Small bowel feces sign noted within small bowel loops in left upper hemipelvis, which is more often seen with obstruction than ileus. 2. Cholelithiasis. RADIA
[2018-11-28 11:58] LABS: GLUCOSE, URINE (UA) NEGATIVE (NEGATIVE); KETONES,URINE (UA) 15 mg/dL (NEGATIVE); LEUKOCYTE ESTERASE, URINE NEGATIVE (NEGATIVE); NITRITE,URINE NEGATIVE (NEGATIVE); OCCULT BLOOD,URINE TRACE-INTA (NEGATIVE); PH,URINE 5.5 PH (5.0-7.5); PROTEIN,URINE TRACE mg/dL (NEGATIVE); UROBILINOGEN,URINE 0.2 (NORMAL) E.U./dL (NORMAL)
[2018-11-28 12:16] LABS: CLARITY,URINE CLEAR (CLEAR)
[2018-11-28 12:17] LABS: BILIRUBIN,URINE NEGATIVE (NEGATIVE); ICTOTEST,URINE NEGATIVE
[2018-11-28] MEDS ORDERED: MORPHINE 2 MG/ML CARPUJECT IVP STA (12:33)
[2018-11-28] MEDS ORDERED: LORazepam 2 MG/ML VIAL IVP STA (12:33)
[2018-11-28] MEDS ORDERED: ONDANSETRON 4 MG/2 ML VIAL IVP PRN (16:38)
--- NOTE | 2018-11-28 16:47 | CONSULTATION NOTE ---
Referring Provider Name of Referring Provider:: Dr. Norton Consult Date: 11/28/18 Chief Complaint - Chief Complaint Chief Complaint: Abdominal pain and nausea History of Present Illness - Admitted From Admitted From:: [facility] ED - History Obtained From Records Reviewed: Yes History obtained from: Patient, Dr. 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 Social History Notes: pt report she smoked cigarette at her young age then she quitted. Pt denies alcohol and drug abuse. Meds/Allgy - Home Medications Home Medications: Ambulatory Orders Medication Instructions Recorded Confirmed No Known Home Medications 11/28/18 11/28/18 - Allergies Allergies/Adverse Reactions: Allergies Allergy/AdvReac Type Severity Reaction Status Date / Time prochlorperazine Allergy Cramps Verified 11/28/18 09:25 [From Compazine] prochlorperazine edisylate * Allergy Cramps Verified 11/28/18 09:25 [From Compazine] prochlorperazine maleate * Allergy Cramps Verified 11/28/18 09:25 [From Compazine] Review of Systems - Eyes Eyes: denies: Pain - Ears, Nose & Throat Ears, Nose & Throat: denies: Ear pain - Cardiovascular Cariovascular: denies: Irregular heart rate, Palpitations, Chest pain - Respiratory Respiratory: denies: Cough - Gastrointestinal Gastrointestinal: reports: Abdominal pain, Abdominal distention, Nausea, Vomiting (One episode yesterday.), Bloating. denies: Rectal bleeding, Black stools, Bloody stools - Genitourinary Genitourinary: denies: Dysuria - Musculoskeletal Musculoskeletal: denies: Muscle pain, Back pain - Integumentary Integumentary: denies: Rash - Neurological Neurological: denies: General weakness, Focal weakness - Hematologic/Lymphatic Hematologic/Lymphatic: denies: Anemia Exam - Vital Signs Reviewed Vital Signs: Yes Vital Signs: Vital Signs x48h Temp Pulse Resp BP Pulse Ox 11/28/18 13:49 36.6 C 104 H 24 95 11/28/18 12:16 103 H 22 141/61 H 100 11/28/18 11:22 92 21 141/61 H 96 11/28/18 09:07 36.7 C 120 H 20 142/92 H 100 - Physical Exam General Appearance: positive: No acute distress Eyes Bilateral: positive: No lid inflammation, Conjunctivae nml, No scleral i cterus ENT: positive: Dry mucous membranes Neck: positive: Trachea midline Respiratory: positive: Chest non-tender, No respiratory distress, Breath sounds nml Cardiovascular: positive: Tachycardia Abdomen: positive: Non-tender, Other (Tympanic with decreased bowel sounds.) Skin: positive: Color nml Extremities: positive: Non-tender, Full ROM, Nml appearance Neurologic/Psychiatric: positive: Oriented x3, Motor nml, Sensation nml, Mood/affect nml Conclusion/Plan - Diagnosis Diagnosis: Early postoperative small bowel obstruction - Plan Plan: IVF, NG decompression and await for bowel function to return. I spent an extensive amount of time discussing the plan with the patient and her signi ficant other. I explained that most early postop small bowel obstructions resolved without surgery. In studies, as much is 21 days were allowed to elapse between the time of the hospitalization and surgical intervention. They both asked whether or not I could do laparoscopy and I explained that this would be impossible with the status of her abdomen. Essentially, it is a "frozen" abdomen at this point in time. I also explained that even open surgery would be very problematic because adhesions have formed and are reforming now. I explained that with our current knowledge there is very little we can do to prevent adhesion formation. It is a natural process of abdominal surgery. I attest that at 96 hours following the patient's admission I will either discharge the patient home or attempt to transfer to another institution. 45 minutes of [id number] time spent with the patient, the majority of which was spent in discussion, coordination of care, and completion of the requisite p [id number] Friedman disclaimer: This document was created in part using voice recognition technology. Because of the inherent limitations of the system ([employer]'s [employer] user manual states that the licensee understands that speech recognition is a statistical process and that recognition errors are inherent in the process), occasional same sounding word substitutions and grammatical errors do occur and persist despite proofreading. Please read this document for context. - Lab Results Lab results reviewed: Yes Fish Bones: 11/29/18 05:05 11/29/18 05:05
[2018-11-28] MEDS: ACETAMINOPHEN 1,000 MG/100 ML 100 ML IV PRN (17:28)
[2018-11-28] MEDS: SODIUM CHLORIDE FLUSH 0.9% 10 ML SYRINGE IVP SCH (17:28)
[2018-11-28] MEDS: D5NS W/20 MEQ KCL 1,000 ML IV SCH (17:30)
--- NOTE | 2018-11-28 23:01 | XRAY Report ---
Reason: NG tube placement Procedure Date: 11/28/2018 Accession Number: [id number] / [id number] Procedure: XR - Chest 1 View X-Ray CPT Code: 61648 FULL RESULT: EXAM: CHEST RADIOGRAPHY EXAM DATE: 11/28/2018 10:26 PM. CLINICAL HISTORY: NG tube placement. COMPARISON: None. TECHNIQUE: 1 view. FINDINGS: Lungs/Pleura: Clear. No effusion or pneumothorax. Mediastinum: Within exam limitations, the cardiomediastinal contour is normal. Other: Nasogastric tube extends into the stomach, tip in upper body of stomach. IMPRESSION: NG tube tip in upper body of stomach. RADIA
[2018-11-29] MEDS: D5NS W/20 MEQ KCL 1,000 ML IV SCH ×3 (01:27→17:54)
[2018-11-29] MEDS: SODIUM CHLORIDE FLUSH 0.9% 10 ML SYRINGE IVP SCH ×4 (01:29→23:42)
[2018-11-29 05:36] LABS: BASOPHILS % (AUTO) 0.3 %; EOSINOPHILS # (AUTO) 0.1 10^3/uL (0.0-0.7); EOSINOPHILS % (AUTO) 1.6 %; HGB - HEMOGLOBIN 10.5 g/dL (12.0-16.0); LYMPHOCYTES # (AUTO) 0.8 10^3/uL (1.5-3.5); LYMPHOCYTES % (AUTO) 9.1 %; MEAN CORPUSCULAR HGB CONC 34.1 g/dL (32.0-36.0); MEAN PLATELET VOLUME 6.4 fL (7.9-10.8); MONOCYTES % (AUTO) 12.6 %; NEUTROPHILS # (AUTO) 6.3 10^3/uL (1.5-6.6); NEUTROPHILS % (AUTO) 76.4 %; PLT - PLATELET COUNT 322 10^3/uL (130-450); RED BLOOD COUNT 3.49 10^6/uL (4.20-5.40); RED CELL DISTRIBUTION WIDTH 12.5 % (12.0-15.0); WHITE BLOOD COUNT 8.3 x10^3/uL (4.8-10.8)
[2018-11-29] MEDS: ACETAMINOPHEN 1,000 MG/100 ML 100 ML IV PRN ×4 (05:40→21:33)
[2018-11-29 05:48] LABS: ALBUMIN 2.4 g/dL (3.2-5.5); ALBUMIN/GLOBULIN RATIO 0.7 (1.0-2.2); BILIRUBIN,TOTAL 0.5 mg/dL (0.2-1.0); CALCIUM 8.6 mg/dL (8.5-10.3); CREATININE 0.6 mg/dL (0.4-1.0); TOTAL PROTEIN 5.7 g/dL (6.7-8.2)
--- NOTE | 2018-11-29 07:44 | PROVIDER PROGRESS NOTE ---
Subjective - General Admit Date: 11/28/18 Procedure Date: 11/17/18 Post Op Days: 16 - Review of Systems Wound/Incisions: positive: Healing well ([place] in place.) General: positive: No symptoms HEENT: positive: No symptoms Pulmonary: positive: No symptoms Cardiovascular: positive: No symptoms Genitourinary: positive: No symptoms Musculoskeletal: positive: No symptoms Skin: positive: No symptoms Objective - Patient Data Reviewed Vital Signs: Yes Vital Signs: Vital Signs x48h Temp Pulse Resp BP Pulse Ox 11/29/18 00:43 37.0 C 93 18 123/56 L 96 Weight: Weight 11/27/18 11/28/18 11/29/18 23:59 23:59 23:59 Weight (kg) 68.039 kg 67.5 kg Intake & Output: Intake and Output Totals x24h 11/27/18 11/28/18 11/29/18 23:59 23:59 23:59 Intake Total 2100 1143.75 Output Total 300 400 Balance 1800 743.75 - Lab Results Lab Results: 12/02/18 05:20 12/02/18 05:20 Other Lab Results: Lab Results x24hrs 11/29/18 11/29/18 11/28/18 Range/Units 05:05 05:05 10:55 WBC 8.3 (4.8-10.8) x10^3/uL RBC 3.49 L (4.20-5.40) 10^6/uL Hgb 10.5 L (12.0-16.0) g/dL Hct 30.7 L (37.0-47.0) % MCV 88.0 (81.0-99.0) fL MCH 30.0 (27.0-31.0) pg MCHC 34.1 (32.0-36.0) g/dL RDW 12.5 (12.0-15.0) % Plt Count 322 (130-450) 10^3/uL MPV 6.4 L (7.9-10.8) fL Neut # (Auto) 6.3 (1.5-6.6) 10^3/uL Lymph # (Auto) 0.8 L (1.5-3.5) 10^3/uL [place] # (Auto) 1.0 (0.0-1.0) 10^3/uL Eos # (Auto) 0.1 (0.0-0.7) 10^3/uL Baso # (Auto) 0.0 (0.0-0.1) 10^3/uL Absolute Nucleated RBC 0.00 x10^3/uL Nucleated RBC % 0.0 /100WBC Sodium 136 (135-145) mmol/L Potassium 4.0 (3.5-5.0) mmol/L Chloride 104 (101-111) mmol/L Carbon Dioxide 22 (21-32) mmol/L Anion Gap 10.0 (6-13) BUN 16 (6-20) mg/dL Creatinine 0.6 (0.4-1.0) mg/dL Estimated GFR (MDRD) 103 (>89) Glucose 118 H (70-100) mg/dL Lactic Acid (0.5-2.2) mmol/L Calcium 8.6 (8.5-10.3) mg/dL Total Bilirubin 0.5 (0.2-1.0) mg/dL AST 10 (10-42) IU/L ALT 18 (10-60) IU/L Alkaline Phosphatase 58 (42-121) IU/L Total Protein 5.7 L (6.7-8.2) g/dL Albumin 2.4 L (3.2-5.5) g/dL Globulin 3.3 (2.1-4.2) g/dL Albumin/Globulin Ratio 0.7 L (1.0-2.2) Lipase (22-51) U/L Urine Color YELLOW Urine Clarity CLEAR (CLEAR) Urine pH 5.5 (5.0-7.5) PH Ur Specific [place] <=1.005 (1.002-1.030) Urine Protein TRACE (NEGATIVE) mg/dL Urine Glucose (UA) NEGATIVE (NEGATIVE) mg/dL Urine Ketones 15 H (NEGATIVE) mg/dL Urine Occult Blood TRACE-INTA (NEGATIVE) Urine Nitrite NEGATIVE (NEGATIVE) Urine Bilirubin NEGATIVE (NEGATIVE) Urine Urobilinogen 0.2 (NORMAL) (NORMAL) E.U./dL Ur Leukocyte Esterase NEGATIVE (NEGATIVE) Ur Microscopic Review NOT INDICATED Urine Culture Comments NOT INDICATED 11/28/18 11/28/18 11/28/18 Range/Units 10:10 10:00 10:00 WBC 13.5 H (4.8-10.8) x10^3/uL RBC 4.46 (4.20-5.40) 10^6/uL Hgb 13.1 (12.0-16.0) g/dL Hct 38.5 (37.0-47.0) % MCV 86.2 (81.0-99.0) fL MCH 29.3 (27.0-31.0) pg MCHC 34.0 (32.0-36.0) g/dL RDW 13.0 (12.0-15.0) % Plt Count 407 (130-450) 10^3/uL MPV 6.4 L (7.9-10.8) fL Neut # (Auto) 11.6 H (1.5-6.6) 10^3/uL Lymph # (Auto) 0.8 L (1.5-3.5) 10^3/uL [place] # (Auto) 1.0 (0.0-1.0) 10^3/uL Eos # (Auto) 0.1 (0.0-0.7) 10^3/uL Baso # (Auto) 0.0 (0.0-0.1) 10^3/uL Absolute Nucleated RBC 0.00 x10^3/uL Nucleated RBC % 0.0 /100WBC Sodium 133 L (135-145) mmol/L Potassium 4.2 (3.5-5.0) mmol/L Chloride 95 L (101-111) mmol/L Carbon Dioxide 24 (21-32) mmol/L Anion Gap 14.0 H (6-13) BUN 22 H (6-20) mg/dL Creatinine 0.8 (0.4-1.0) mg/dL Estimated GFR (MDRD) 74 L (>89) Glucose 121 H (70-100) mg/dL Lactic Acid 1.3 (0.5-2.2) mmol/L Calcium 10.1 (8.5-10.3) mg/dL Total Bilirubin 1.1 H (0.2-1.0) mg/dL AST 14 (10-42) IU/L ALT 32 (10-60) IU/L Alkaline Phosphatase 82 (42-121) IU/L Total Protein 7.5 (6.7-8.2) g/dL Albumin 3.4 (3.2-5.5) g/dL Globulin 4.1 (2.1-4.2) g/dL Albumin/Globulin Ratio 0.8 L (1.0-2.2) Lipase 30 (22-51) U/L Urine Color Urine Clarity (CLEAR) Urine pH (5.0-7.5) PH Ur Specific [place] (1.002-1.030) Urine Protein (NEGATIVE) mg/dL Urine Glucose (UA) (NEGATIVE) mg/dL Urine Ketones (NEGATIVE) mg/dL Urine Occult Blood (NEGATIVE) Urine Nitrite (NEGATIVE) Urine Bilirubin (NEGATIVE) Urine Urobilinogen (NORMAL) E.U./dL Ur Leukocyte Esterase (NEGATIVE) Ur Microscopic Review Urine Culture Comments - Current Medications Current Medications: Current Medications Generic Name Dose Route Start Last Admin Trade Name Freq PRN Reason Stop Dose Admin Potassium Chloride/Dextrose/Sod Cl 1,000 mls @ 125 mls/hr 11/28/18 17:00 11/29/18 01:27 IV 125 mls/hr .Q8H KHAI Administration Acetaminophen 100 mls @ 400 mls/hr 11/28/18 16:43 11/29/18 06:41 Ofirmev IV Infused Q6HR PRN Infusion PAIN Sodium Chloride 10 ml 11/28/18 17:00 11/29/18 01:29 Normal Saline Flush 0.9% IVP Not Given 0100,0900,1700 [facility] - Physical Exam Wound/Incisions: positive: Healing well ([place] in place.) General Appearance: positive: No acute distress Eyes Bilateral: positive: No lid inflammation, Conjunctivae nml, No scleral icterus ENT: positive: No signs of dehydration Neck: positive: Trachea midline Abdomen: positive: Tenderness (Minimal generalized.), Abnml bowel sounds (Slightly high pitched.). negative: No distention Skin: positive: Color nml Extremities: positive: Non-tender, Nml appearance Neurologic/Psychiatric: positive: Oriented x3, Motor nml, Sensation nml, Mood/affect nml ABX Reporting Has patient been on IV antibiotics over the past 48 hours?: No Impression/Plan - Problem List Problem List: Hospital day #1 for early postop small bowel obstructionileus I have spent notes of time discussing with the patient that the plan will be supportive with IV fluids, NG decompression as needed, and awaiting for the bowel function return. The patient asked about surgery and even possibly laparoscopic surgery and explained her that this is absolutely contraindicated. I explained that the patient become dehydrated and that continued hydration is important and necessary. Additionally, she will be asked to walk in the halls at least 3 times a day and preferably even more. This should help her bowel function return and what it does I will start feeding her normally. In short: IV fluids at 125 cc/h NG decompression as needed Ambulation, as much as possible Await bowel function to return I attest that at 96 hours following the patient's admission I will either discharge the patient home or attempt to transfer to another institution.
[2018-11-29] MEDS: ENOXAPARIN 40 MG/0.4 ML SYRINGE SUBQ SCH (09:24)
[2018-11-30] MEDS: D5NS W/20 MEQ KCL 1,000 ML IV SCH ×3 (01:53→19:07)
[2018-11-30 05:43] LABS: BASOPHILS % (AUTO) 0.2 %; EOSINOPHILS # (AUTO) 0.2 10^3/uL (0.0-0.7); EOSINOPHILS % (AUTO) 1.7 %; HGB - HEMOGLOBIN 10.1 g/dL (12.0-16.0); LYMPHOCYTES # (AUTO) 0.8 10^3/uL (1.5-3.5); LYMPHOCYTES % (AUTO) 8.2 %; MEAN CORPUSCULAR HGB CONC 35.3 g/dL (32.0-36.0); MEAN CORPUSCULAR VOLUME 87.8 fL (81.0-99.0); MEAN PLATELET VOLUME 6.4 fL (7.9-10.8); MONOCYTES # (AUTO) 1.1 10^3/uL (0.0-1.0); MONOCYTES % (AUTO) 11.8 %; NEUTROPHILS # (AUTO) 7.2 10^3/uL (1.5-6.6); NEUTROPHILS % (AUTO) 78.1 %; PLT - PLATELET COUNT 304 10^3/uL (130-450); RED BLOOD COUNT 3.25 10^6/uL (4.20-5.40); WHITE BLOOD COUNT 9.2 x10^3/uL (4.8-10.8)
[2018-11-30 05:57] LABS: ALBUMIN 2.3 g/dL (3.2-5.5); ALBUMIN/GLOBULIN RATIO 0.7 (1.0-2.2); BILIRUBIN,TOTAL 0.6 mg/dL (0.2-1.0); CALCIUM 8.8 mg/dL (8.5-10.3); CREATININE 0.4 mg/dL (0.4-1.0); TOTAL PROTEIN 5.4 g/dL (6.7-8.2)
[2018-11-30] MEDS: ACETAMINOPHEN 1,000 MG/100 ML 100 ML IV PRN ×3 (06:41→19:08)
[2018-11-30] MEDS: ENOXAPARIN 40 MG/0.4 ML SYRINGE SUBQ SCH (09:09)
[2018-11-30] MEDS: SODIUM CHLORIDE FLUSH 0.9% 10 ML SYRINGE IVP SCH ×2 (09:10→17:28)
--- NOTE | 2018-11-30 17:00 | PROVIDER PROGRESS NOTE ---
Subjective - General Admit Date: 11/28/18 Procedure Date: 11/17/18 Post Op Days: 13 - Review of Systems Wound/Incisions: positive: Healing well ([place] in place.) General: positive: No symptoms HEENT: positive: No symptoms Pulmonary: positive: No symptoms Cardiovascular: positive: No symptoms Gastrointestinal: positive: Abdominal pain (Still with some crampy pain.), Diarrhea, Other (The morning started with a normal bowel movement and then wne tdiarrheal.). negative: Nausea, Vomiting Genitourinary: positive: No symptoms Musculoskeletal: positive: No symptoms Skin: positive: No symptoms Psychiatric: positive: No symptoms Objective - Patient Data Reviewed Vital Signs: Yes Vital Signs: Vital Signs x48h Temp Pulse Resp BP Pulse Ox 11/30/18 15:45 36.9 C 80 14 137/65 H 96 Weight: Weight 11/28/18 11/29/18 11/30/18 23:59 23:59 23:59 Weight (kg) 68.039 kg 67.5 kg 69 kg Intake & Output: Intake and Output Totals x24h 11/28/18 11/29/18 11/30/18 23:59 23:59 23:59 Intake Total 2100 3397.917 2197.917 Output Total 300 950 3 Balance 1800 2447.917 2194.917 - Lab Results Lab Results: 11/30/18 05:27 11/30/18 05:27 Other Lab Results: Lab Results x24hrs 11/30/18 11/30/18 Range/Units 05:27 05:27 WBC 9.2 (4.8-10.8) x10^3/uL RBC 3.25 L (4.20-5.40) 10^6/uL Hgb 10.1 L (12.0-16.0) g/dL Hct 28.5 L (37.0-47.0) % MCV 87.8 (81.0-99.0) fL MCH 31.0 (27.0-31.0) pg MCHC 35.3 (32.0-36.0) g/dL RDW 13.0 (12.0-15.0) % Plt Count 304 (130-450) 10^3/uL MPV 6.4 L (7.9-10.8) fL Neut # (Auto) 7.2 H (1.5-6.6) 10^3/uL Lymph # (Auto) 0.8 L (1.5-3.5) 10^3/uL [place] # (Auto) 1.1 H (0.0-1.0) 10^3/uL Eos # (Auto) 0.2 (0.0-0.7) 10^3/uL Baso # (Auto) 0.0 (0.0-0.1) 10^3/uL Absolute Nucleated RBC 0.00 x10^3/uL Nucleated RBC % 0.0 /100WBC Sodium 138 (135-145) mmol/L Potassium 3.8 (3.5-5.0) mmol/L Chloride 107 (101-111) mmol/L Carbon Dioxide 23 (21-32) mmol/L Anion Gap 8.0 (6-13) BUN 12 (6-20) mg/dL Creatinine 0.4 (0.4-1.0) mg/dL Estimated GFR (MDRD) 164 (>89) Glucose 118 H (70-100) mg/dL Calcium 8.8 (8.5-10.3) mg/dL Total Bilirubin 0.6 (0.2-1.0) mg/dL AST 10 (10-42) IU/L ALT 16 (10-60) IU/L Alkaline Phosphatase 60 (42-121) IU/L Total Protein 5.4 L (6.7-8.2) g/dL Albumin 2.3 L (3.2-5.5) g/dL Globulin 3.1 (2.1-4.2) g/dL Albumin/Globulin Ratio 0.7 L (1.0-2.2) - Current Medications Current Medications: Current Medications Generic Name Dose Route Start Last Admin Trade Name Freq PRN Reason Stop Dose Admin Enoxaparin Sodium 40 mg 11/29/18 09:00 11/30/18 09:09 Lovenox SUBQ 40 mg DAILY KHAI Administration Potassium Chloride/Dextrose/Sod Cl 1,000 mls @ 125 mls/hr 11/28/18 17:00 11/30/18 10:07 IV 125 mls/hr .Q8H KHAI Administration Acetaminophen 100 mls @ 400 mls/hr 11/28/18 16:43 11/30/18 13:31 Ofirmev IV Infused Q6HR PRN Infusion PAIN Sodium Chloride 10 ml 11/28/18 17:00 11/30/18 09:10 Normal Saline Flush 0.9% IVP Not Given 0100,0900,1700 KHAI - Physical Exam Wound/Incisions: positive: Healing well ([place] in place.), No drainage. negative: Drainage, Erythema General Appearance: positive: No acute distress Eyes Bilateral: positive: No lid inflammation, Conjunctivae nml, No scleral icterus ENT: positive: No signs of dehydration Neck: positive: Trachea midline Respiratory: positive: Chest non-tender, No respiratory distress, Breath sounds nml Cardiovascular: positive: Regular rate & rhythm, No murmur Abdomen: positive: Nml bowel sounds, Tenderness (Generalized but a bit more in LLQ.), Other (Still a bit distended and "puffy.") Skin: positive: Color nml Extremities: positive: Non-tender, Full ROM, Nml appearance Neurologic/Psychiatric: positive: Oriented x3, Motor nml, Sensation nml, Mood/affect nml ABX Reporting Has patient been on IV antibiotics over the past 48 hours?: No Impression/Plan - Problem List Problem List: Hospital day 3 with early postoperative small bowel obstruction Start clear liquid diet and have shai removed. Patient encouraged to ambulate as much as possible. WBC normal and patient afebrile. Do not suspect infection and patient is not on antibiotics. Continue to follow. Expect non- operative management will work.
[2018-12-01] MEDS: ACETAMINOPHEN 1,000 MG/100 ML 100 ML IV PRN ×2 (00:28→09:51)
[2018-12-01] MEDS: SODIUM CHLORIDE FLUSH 0.9% 10 ML SYRINGE IVP SCH ×4 (00:32→23:57)
[2018-12-01] MEDS: D5NS W/20 MEQ KCL 1,000 ML IV SCH ×2 (02:56→19:47)
[2018-12-01 06:07] LABS: BASOPHILS % (AUTO) 0.3 %; EOSINOPHILS # (AUTO) 0.2 10^3/uL (0.0-0.7); HGB - HEMOGLOBIN 10.3 g/dL (12.0-16.0); LYMPHOCYTES # (AUTO) 0.8 10^3/uL (1.5-3.5); LYMPHOCYTES % (AUTO) 9.4 %; MEAN CORPUSCULAR HGB CONC 34.1 g/dL (32.0-36.0); MEAN PLATELET VOLUME 6.5 fL (7.9-10.8); MONOCYTES % (AUTO) 11.7 %; NEUTROPHILS # (AUTO) 6.3 10^3/uL (1.5-6.6); NEUTROPHILS % (AUTO) 76.6 %; PLT - PLATELET COUNT 390 10^3/uL (130-450); RED BLOOD COUNT 3.45 10^6/uL (4.20-5.40); RED CELL DISTRIBUTION WIDTH 12.5 % (12.0-15.0); WHITE BLOOD COUNT 8.3 x10^3/uL (4.8-10.8)
[2018-12-01 06:18] LABS: ALBUMIN 2.4 g/dL (3.2-5.5); ALBUMIN/GLOBULIN RATIO 0.7 (1.0-2.2); BILIRUBIN,TOTAL 0.5 mg/dL (0.2-1.0); CALCIUM 8.8 mg/dL (8.5-10.3); CREATININE 0.4 mg/dL (0.4-1.0); TOTAL PROTEIN 5.7 g/dL (6.7-8.2)
--- NOTE | 2018-12-01 08:07 | PROVIDER PROGRESS NOTE ---
Assessment/Plan - Problem List (1) Small bowel obstruction due to adhesions Assessment/Plan: persistent sx suggestive of partial SBO, early postop in nature; Plan: gastrograffin challenge SBFT today to define severity of obstruction and for possible therapy. - Current Meds Current Meds: Current Medications Generic Name Dose Route Start Last Admin Trade Name Freq PRN Reason Stop Dose Admin Enoxaparin Sodium 40 mg 11/29/18 09:00 11/30/18 09:09 Lovenox SUBQ 40 mg DAILY KHAI Administration Potassium Chloride/Dextrose/Sod Cl 1,000 mls @ 125 mls/hr 11/28/18 17:00 12/01/18 02:56 IV 125 mls/hr .Q8H KHAI Administration Acetaminophen 100 mls @ 400 mls/hr 11/28/18 16:43 12/01/18 00:43 Ofirmev IV Infused Q6HR PRN Infusion PAIN Sodium Chloride 10 ml 11/28/18 17:00 12/01/18 00:32 Normal Saline Flush 0.9% IVP Not Given 0100,0900,1700 KHAI - Lab Result Fish Bone Diagrams: 12/01/18 05:36 12/01/18 05:36 - Additional Planning My Orders: My Active Orders 12/01/18 07:57 NPO except Meds [DIET] SBFT Challenge Panel [XR] Stat Subjective - Subjective Patient Reports: Diarrhea, Other (developed abd crampy pain and vomited 1,000 cc last night; feels better today, minimal cramps; passing multiple small loose nonbloody bms. No further nausea; hungry. taking no narcotics) Objective Vital Signs: Vital Signs - 24 hr 11/30/18 12/01/18 15:45 00:07 Temperature 36.9 C 36.9 C Heart Rate [ 80 87 Radial] Respiratory 14 15 Rate Blood Pressure 137/65 H 146/90 H [Left Brachial artery] O2 Saturation 96 98 Oxygen O2 Source Room air I&O (Last 24 Hrs): Intake and Output Totals x24h 11/29/18 11/30/18 12/01/18 23:59 23:59 23:59 Intake Total 3397.917 3297.917 1077.083 Output Total 950 3 1500 Balance 2447.917 3294.917 -422.917 General: Alert, Oriented x3, Cooperative, No acute distress HEENT: Mucous membr. moist/pink Neuro: Alert Cardiovascular: Regular rate, No murmurs Respiratory: Chest non-tender, No respiratory distress, Breath sounds nml Abdomen: Soft, No tenderness, No hepatospenomegaly, No masses, Other (incision healing well; bowel sounds tympanitic, hypoactive) Extremities: No edema, No tenderness/swelling - Results Results: Laboratory Results WBC 8.3 x10^3/uL (4.8-10.8) 12/01/18 05:36 RBC 3.45 10^6/uL (4.20-5.40) L 12/01/18 05:36 Hgb 10.3 g/dL (12.0-16.0) L 12/01/18 05:36 Hct 30.3 % (37.0-47.0) L 12/01/18 05:36 MCV 88.0 fL (81.0-99.0) 12/01/18 05:36 MCH 30.0 pg (27.0-31.0) 12/01/18 05:36 MCHC 34.1 g/dL (32.0-36.0) 12/01/18 05:36 RDW 12.5 % (12.0-15.0) 12/01/18 05:36 Plt Count 390 10^3/uL (130-450) 12/01/18 05:36 MPV 6.5 fL (7.9-10.8) L 12/01/18 05:36 Neut # (Auto) 6.3 10^3/uL (1.5-6.6) 12/01/18 05:36 Lymph # (Auto) 0.8 10^3/uL (1.5-3.5) L 12/01/18 05:36 [place] # (Auto) 1.0 10^3/uL (0.0-1.0) 12/01/18 05:36 Eos # (Auto) 0.2 10^3/uL (0.0-0.7) 12/01/18 05:36 Baso # (Auto) 0.0 10^3/uL (0.0-0.1) 12/01/18 05:36 Absolute Nucleated RBC 0.00 x10^3/uL 12/01/18 05:36 Nucleated RBC % 0.0 /100WBC 12/01/18 05:36 Sodium 138 mmol/L (135-145) 12/01/18 05:36 Potassium 3.9 mmol/L (3.5-5.0) 12/01/18 05:36 Chloride 107 mmol/L (101-111) 12/01/18 05:36 Carbon Dioxide 21 mmol/L (21-32) 12/01/18 05:36 Anion Gap 10.0 (6-13) 12/01/18 05:36 BUN 7 mg/dL (6-20) 12/01/18 05:36 Creatinine 0.4 mg/dL (0.4-1.0) 12/01/18 05:36 Estimated GFR (MDRD) 164 (>89) 12/01/18 05:36 Glucose 107 mg/dL (70-100) H 12/01/18 05:36 Lactic Acid 1.3 mmol/L (0.5-2.2) 11/28/18 10:10 Calcium 8.8 mg/dL (8.5-10.3) 12/01/18 05:36 Total Bilirubin 0.5 mg/dL (0.2-1.0) 12/01/18 05:36 AST 11 IU/L (10-42) 12/01/18 05:36 ALT 14 IU/L (10-60) 12/01/18 05:36 Alkaline Phosphatase 60 IU/L (42-121) 12/01/18 05:36 Total Protein 5.7 g/dL (6.7-8.2) L 12/01/18 05:36 Albumin 2.4 g/dL (3.2-5.5) L 12/01/18 05:36 Globulin 3.3 g/dL (2.1-4.2) 12/01/18 05:36 Albumin/Globulin Ratio 0.7 (1.0-2.2) L 12/01/18 05:36 Lipase 30 U/L (22-51) 11/28/18 10:00 Urine Color YELLOW 11/28/18 10:55 Urine Clarity CLEAR (CLEAR) 11/28/18 10:55 Urine pH 5.5 PH (5.0-7.5) 11/28/18 10:55 Ur Specific [place] <=1.005 (1.002-1.030) 11/28/18 10:55 Urine Protein TRACE mg/dL (NEGATIVE) 11/28/18 10:55 Urine Glucose (UA) NEGATIVE mg/dL (NEGATIVE) 11/28/18 10:55 Urine Ketones 15 mg/dL (NEGATIVE) H 11/28/18 10:55 Urine Occult Blood TRACE-INTA (NEGATIVE) 11/28/18 10:55 Urine Nitrite NEGATIVE (NEGATIVE) 11/28/18 10:55 Urine Bilirubin NEGATIVE (NEGATIVE) 11/28/18 10:55 Urine Urobilinogen 0.2 (NORMAL) E.U./dL (NORMAL) 11/28/18 10:55 Ur Leukocyte Esterase NEGATIVE (NEGATIVE) 11/28/18 10:55 Ur Microscopic Review NOT INDICATED 11/28/18 10:55 Urine Culture Comments NOT INDICATED 11/28/18 10:55 - Procedures Procedures: Procedures COLONOSCOPY (08/12/14) INSPECTION OF GASTROINTESTINAL TRACT, PERC ENDO APPROACH (11/15/18) RELEASE SMALL INTESTINE, OPEN APPROACH (11/15/18) ABX Reporting Has patient been on IV antibiotics over the past 48 hours?: No
[2018-12-01] MEDS ORDERED: DIATR MEGLU/DIATRIZOATE SODIUM 120 ML BOTTLE PO ONE (08:56)
[2018-12-01] MEDS ORDERED: D5NS W/20 MEQ KCL 1,000 ML IV SCH (09:06)
[2018-12-01] MEDS: ENOXAPARIN 40 MG/0.4 ML SYRINGE SUBQ SCH (09:51)
[2018-12-01] MEDS: SODIUM CHLORIDE FLUSH 0.9% 10 ML SYRINGE IVP PRN ×4 (10:24→15:15)
[2018-12-01] MEDS ORDERED: KETOROLAC 30 MG/ML VIAL IVP PRN (13:14)
[2018-12-01] MEDS: PANTOPRAZOLE 40 MG VIAL IV SCH (15:14)
--- NOTE | 2018-12-01 15:34 | XRAY Report ---
Reason: NG Placement Procedure Date: 12/01/2018 Accession Number: [id number] / [id number] Procedure: XR - Abdomen 1 View X-Ray CPT Code: 85743 FULL RESULT: EXAM: ABDOMEN RADIOGRAPHY EXAM DATE: 12/01/2018 02:47 PM. CLINICAL HISTORY: NG Placement. COMPARISON: ABDOMEN 1 VIEW 12/01/2018 1:19 PM. TECHNIQUE: 1 view. FINDINGS: Bowel Gas Pattern: Within normal limits. No dilated loops. Other: The NG tube is coiled in the proximal stomach. Gastrografin is seen extending to the descending colon. IMPRESSION: 1. There is an NG tube coiled in the proximal stomach. 2. Gastrografin is seen to extend this far as the descending colon. RADIA
--- NOTE | 2018-12-01 16:23 | MISCELLANEOUS PROVIDER NOTE ---
Miscellaneous Provider Note - - Note: Pt developed worsening abd pain, N/V this afternoon. VSS, abd remains benign. NG reinserted with 600+ initial output. Gastrograffin challenge test shows contrast in colon at 4 hours. Imp: resolving early postop SBO; may have component of ileus/dysmotility as well complicating her recovery. Rec: continue NG suction overnight; non narcotic analgesics only; 2 view abd series in am; if all appears satisfactory, consider removal of NG in am.
[2018-12-02] MEDS: D5NS W/20 MEQ KCL 1,000 ML IV SCH ×4 (04:14→21:00)
[2018-12-02 05:48] LABS: BASOPHILS % (AUTO) 0.6 %; EOSINOPHILS # (AUTO) 0.1 10^3/uL (0.0-0.7); EOSINOPHILS % (AUTO) 1.9 %; HGB - HEMOGLOBIN 10.2 g/dL (12.0-16.0); LYMPHOCYTES # (AUTO) 0.9 10^3/uL (1.5-3.5); LYMPHOCYTES % (AUTO) 12.8 %; MEAN CORPUSCULAR HEMOGLOBIN 29.9 pg (27.0-31.0); MEAN CORPUSCULAR HGB CONC 33.9 g/dL (32.0-36.0); MEAN CORPUSCULAR VOLUME 88.3 fL (81.0-99.0); MEAN PLATELET VOLUME 6.1 fL (7.9-10.8); MONOCYTES # (AUTO) 0.9 10^3/uL (0.0-1.0); MONOCYTES % (AUTO) 13.4 %; NEUTROPHILS % (AUTO) 71.3 %; PLT - PLATELET COUNT 427 10^3/uL (130-450); RED BLOOD COUNT 3.41 10^6/uL (4.20-5.40); RED CELL DISTRIBUTION WIDTH 12.7 % (12.0-15.0)
[2018-12-02 05:58] LABS: ALBUMIN 2.3 g/dL (3.2-5.5); ALBUMIN/GLOBULIN RATIO 0.7 (1.0-2.2); BILIRUBIN,TOTAL 0.5 mg/dL (0.2-1.0); CALCIUM 8.8 mg/dL (8.5-10.3); CREATININE 0.5 mg/dL (0.4-1.0); TOTAL PROTEIN 5.6 g/dL (6.7-8.2)
--- NOTE | 2018-12-02 08:40 | PROVIDER PROGRESS NOTE ---
Subjective - General Admit Date: 11/28/18 Procedure Date: 11/17/18 Post Op Days: 16 - Review of Systems Wound/Incisions: positive: Healing well ([place] in place.), No drainage. negative: Drainage, Erythema General: positive: No symptoms HEENT: positive: No symptoms Pulmonary: positive: No symptoms Cardiovascular: positive: No symptoms Gastrointestinal: positive: Abdominal pain (Still with some crampy pain.). negative: Nausea, Vomiting Genitourinary: positive: No symptoms Musculoskeletal: positive: No symptoms Skin: positive: No symptoms Psychiatric: positive: No symptoms Objective - Patient Data Reviewed Vital Signs: Yes Vital Signs: Vital Signs x48h Temp Pulse Resp BP Pulse Ox 12/02/18 08:00 37.4 C 87 18 141/65 H 96 Weight: Weight 11/30/18 12/01/18 12/02/18 23:59 23:59 23:59 Weight (kg) 69 kg 71 kg 67 kg Intake & Output: Intake and Output Totals x24h 11/30/18 12/01/18 12/02/18 23:59 23:59 23:59 Intake Total 3297.917 3334.583 1150 Output Total 3 4150 100 Balance 3294.917 -851.847 8238 - Lab Results Lab Results: 12/02/18 05:20 12/02/18 05:20 Other Lab Results: Lab Results x24hrs 12/02/18 12/02/18 Range/Units 05:20 05:20 WBC 7.0 (4.8-10.8) x10^3/uL RBC 3.41 L (4.20-5.40) 10^6/uL Hgb 10.2 L (12.0-16.0) g/dL Hct 30.1 L (37.0-47.0) % MCV 88.3 (81.0-99.0) fL MCH 29.9 (27.0-31.0) pg MCHC 33.9 (32.0-36.0) g/dL RDW 12.7 (12.0-15.0) % Plt Count 427 (130-450) 10^3/uL MPV 6.1 L (7.9-10.8) fL Neut # (Auto) 5.0 (1.5-6.6) 10^3/uL Lymph # (Auto) 0.9 L (1.5-3.5) 10^3/uL [place] # (Auto) 0.9 (0.0-1.0) 10^3/uL Eos # (Auto) 0.1 (0.0-0.7) 10^3/uL Baso # (Auto) 0.0 (0.0-0.1) 10^3/uL Absolute Nucleated RBC 0.00 x10^3/uL Nucleated RBC % 0.0 /100WBC Sodium 139 (135-145) mmol/L Potassium 3.9 (3.5-5.0) mmol/L Chloride 106 (101-111) mmol/L Carbon Dioxide 24 (21-32) mmol/L Anion Gap 9.0 (6-13) BUN 7 (6-20) mg/dL Creatinine 0.5 (0.4-1.0) mg/dL Estimated GFR (MDRD) 127 (>89) Glucose 111 H (70-100) mg/dL Calcium 8.8 (8.5-10.3) mg/dL Total Bilirubin 0.5 (0.2-1.0) mg/dL AST 10 (10-42) IU/L ALT 12 (10-60) IU/L Alkaline Phosphatase 58 (42-121) IU/L Total Protein 5.6 L (6.7-8.2) g/dL Albumin 2.3 L (3.2-5.5) g/dL Globulin 3.3 (2.1-4.2) g/dL Albumin/Globulin Ratio 0.7 L (1.0-2.2) - Current Medications Current Medications: Current Medications Generic Name Dose Route Start Last Admin Trade Name Freq PRN Reason Stop Dose Admin Enoxaparin Sodium 40 mg 11/29/18 09:00 12/01/18 09:51 Lovenox SUBQ 40 mg DAILY KHAI Administration Acetaminophen 100 mls @ 400 mls/hr 11/28/18 16:43 12/01/18 10:06 Ofirmev IV Infused Q6HR PRN Infusion PAIN Potassium Chloride/Dextrose/Sod Cl 1,000 mls @ 125 mls/hr 12/01/18 16:16 12/02/18 04:14 IV 125 mls/hr .Q8H KHAI Administration Ketorolac Tromethamine 30 mg 12/01/18 13:14 12/01/18 13:59 Toradol Inj (30mg) IVP 12/06/18 13:13 30 mg Q6HR PRN Administration PAIN Ondansetron HCl 4 mg 11/28/18 16:38 12/01/18 12:45 Zofran Inj IVP 4 mg Q6HR PRN Administration Nausea / Vomiting Pantoprazole Sodium 40 mg 12/01/18 14:00 12/01/18 15:14 Protonix IV 40 mg DAILY KHAI Administration Sodium Chloride 10 ml 11/28/18 16:38 12/01/18 15:15 Normal Saline Flush 0.9% IVP 10 ml PRN PRN Administration NEEDED PER PROVIDER ORDERS Sodium Chloride 10 ml 11/28/18 17:00 12/01/18 23:57 Normal Saline Flush 0.9% IVP Not Given 0100,0900,1700 KHAI - Physical Exam Wound/Incisions: positive: Healing well General Appearance: positive: No acute distress Eyes Bilateral: positive: No lid inflammation, Conjunctivae nml, No scleral icterus ENT: positive: Dry mucous membranes Neck: positive: Trachea midline Respiratory: positive: Chest non-tender, No respiratory distress, Breath sounds nml Cardiovascular: positive: Regular rate & rhythm Abdomen: positive: Nml bowel sounds Extremities: positive: Non-tender, Nml appearance Neurologic/Psychiatric: positive: Oriented x3, Motor nml, Sensation nml, Mood/affect nml ABX Reporting Has patient been on IV antibiotics over the past 48 hours?: No Impression/Plan - Problem List Problem List: Hospital day # xx with early postoperative SBO with a likely component of ileus (completely agree with Dr. Truong) Continue IVF and NG decompression and await for full return of bowel function. The Gastrografin challenge showed contrast within the colon indicating that there is no mechanical obstruction. Rather, this seems to be a functional obstruction (ileus) that should resolve with watchful waiting. To this end, the patient feels much better today and I we will clamp the NG tube and see how the patient does over the next 12 to 16 hours. If she continues to do well with the NG clamped I will remove the tube and start her on a clear liquid diet. There is no indication of infection. The patient again was encouraged to walk as much as possible.
--- NOTE | 2018-12-02 08:44 | XRAY Report ---
Reason: assess status of partial sbo Procedure Date: 12/01/2018 Accession Number: [id number] / [id number] Procedure: XR - SBFT Challenge Panel CPT Code: FULL RESULT: EXAM: ABDOMEN RADIOGRAPHY EXAM DATE: 12/01/2018 09:10 AM. CLINICAL HISTORY: Assess status of partial sbo. COMPARISON: - - - - - 12/01/2018 8:05 AM ABDOMEN/PELVIS W/ 11/28/2018 10:43 AM ABDOMEN 1 VIEW 11/16/2018 4:04 PM ABDOMEN 1 VIEW 12/01/2018 2:24 PM ABDOMEN 1 VIEW 12/01/2018 1:19 PM. TECHNIQUE: 1 view. FINDINGS: Bowel Gas Pattern: Moderate dilatation of proximal small bowel. No evidence of distal small bowel or large bowel gas. Findings have worsened compared to 11/16/2018. No obvious pneumoperitoneum. Other: None. IMPRESSION: Interval worsening in the proximal to mid mechanical small bowel obstruction. RADIA
[2018-12-02] MEDS: PANTOPRAZOLE 40 MG VIAL IV SCH (09:17)
[2018-12-02] MEDS: ENOXAPARIN 40 MG/0.4 ML SYRINGE SUBQ SCH (09:18)
[2018-12-02] MEDS: ACETAMINOPHEN 1,000 MG/100 ML 100 ML IV PRN ×2 (09:18→22:29)
[2018-12-02] MEDS: SODIUM CHLORIDE FLUSH 0.9% 10 ML SYRINGE IVP SCH ×2 (09:20→17:18)
--- NOTE | 2018-12-02 11:00 | XRAY Report ---
Reason: f/u SBO Procedure Date: 12/02/2018 Accession Number: [id number] / [id number] Procedure: XR - Abdomen 2 View X-Ray CPT Code: 53875 FULL RESULT: EXAM: ABDOMEN RADIOGRAPHY EXAM DATE: 12/02/2018 09:46 AM. CLINICAL HISTORY: F/u SBO. COMPARISON: ABDOMEN 1 VIEW 12/01/2018 2:24 PM. TECHNIQUE: 2 views. FINDINGS: Lung Bases: Unremarkable. Bowel Gas Pattern: Delayed images of the small bowel series again demonstrate a moderate-grade proximal partial small bowel obstruction. At the time of this radiograph there is contrast throughout a nondilated large bowel Free Air: None. Other: None. IMPRESSION: Little change in partial mechanical small bowel obstruction. RADIA
[2018-12-02] MEDS: PHENOL THROAT SPRAY 177 ML MM PRN ×2 (17:22→22:35)
[2018-12-03] MEDS: SODIUM CHLORIDE FLUSH 0.9% 10 ML SYRINGE IVP SCH ×3 (01:06→16:29)
[2018-12-03] MEDS: D5NS W/20 MEQ KCL 1,000 ML IV SCH ×3 (05:11→16:29)
[2018-12-03] MEDS: ACETAMINOPHEN 1,000 MG/100 ML 100 ML IV PRN ×2 (08:49→21:46)
[2018-12-03] MEDS: PANTOPRAZOLE 40 MG VIAL IV SCH (08:50)
[2018-12-03] MEDS: ENOXAPARIN 40 MG/0.4 ML SYRINGE SUBQ SCH (08:51)
--- NOTE | 2018-12-03 09:38 | PROVIDER PROGRESS NOTE ---
Subjective - General Admit Date: 11/28/18 Procedure Date: 11/17/18 Post Op Days: 25 - Review of Systems Wound/Incisions: positive: Erythema (Some slight erythema where the shai have been removed. It is a little bit more than I am accustomed to or wish to have. No drainage.) General: positive: No symptoms HEENT: positive: No symptoms Pulmonary: positive: No symptoms Cardiovascular: positive: No symptoms Gastrointestinal: positive: Abdominal pain (Still with some crampy pain.). negative: Nausea, Vomiting Genitourinary: positive: No symptoms Musculoskeletal: positive: No symptoms Skin: positive: No symptoms Psychiatric: positive: No symptoms Objective - Patient Data Vital Signs: Vital Signs x48h Temp Pulse Resp BP Pulse Ox 12/03/18 07:49 36.8 C 92 17 151/72 H 97 Weight: Weight 12/01/18 12/02/18 12/03/18 23:59 23:59 23:59 Weight (kg) 71 kg 67 kg 68.5 kg Intake & Output: Intake and Output Totals x24h 12/01/18 12/02/18 12/03/18 23:59 23:59 23:59 Intake Total 3334.583 3530 1090 Output Total 4150 700 50 Balance -087.206 0756 1040 - Lab Results Lab Results: 12/04/18 10:12 12/02/18 05:20 - Current Medications Current Medications: Current Medications Generic Name Dose Route Start Last Admin Trade Name Freq PRN Reason Stop Dose Admin Enoxaparin Sodium 40 mg 11/29/18 09:00 12/03/18 08:51 Lovenox SUBQ 40 mg DAILY KHAI Administration Acetaminophen 100 mls @ 400 mls/hr 11/28/18 16:43 12/03/18 08:49 Ofirmev IV 400 mls/hr Q6HR PRN Administration PAIN Potassium Chloride/Dextrose/Sod Cl 1,000 mls @ 125 mls/hr 12/01/18 16:16 12/03/18 05:11 IV 125 mls/hr .Q8H KHAI Administration Ketorolac Tromethamine 30 mg 12/01/18 13:14 12/01/18 13:59 Toradol Inj (30mg) IVP 12/06/18 13:13 30 mg Q6HR PRN Administration PAIN Ondansetron HCl 4 mg 11/28/18 16:38 12/01/18 12:45 Zofran Inj IVP 4 mg Q6HR PRN Administration Nausea / Vomiting Pantoprazole Sodium 40 mg 12/01/18 14:00 12/03/18 08:50 Protonix IV 40 mg DAILY KHAI Administration Phenol/Menthol 2 sprays 12/02/18 16:50 12/02/18 22:35 Chloraseptic MM 2 sprays Q2HR PRN Administration Throat Pain Sodium Chloride 10 ml 11/28/18 16:38 12/01/18 15:15 Normal Saline Flush 0.9% IVP 10 ml PRN PRN Administration NEEDED PER PROVIDER ORDERS Sodium Chloride 10 ml 11/28/18 17:00 12/03/18 08:50 Normal Saline Flush 0.9% IVP 10 ml 0100,0900,1700 KHAI Administration - Physical Exam Wound/Incisions: positive: No drainage, Erythema General Appearance: positive: No acute distress Eyes Bilateral: positive: No lid inflammation, Conjunctivae nml, Other ENT: positive: No signs of dehydration Neck: positive: Trachea midline Respiratory: positive: Chest non-tender, No respiratory distress, Breath sounds nml Cardiovascular: positive: Regular rate & rhythm Abdomen: positive: Nml bowel sounds, Tenderness (Minimal incisional.), Other (See above for some erythema at the staple line.) Skin: positive: Color nml Extremities: positive: Nml appearance Neurologic/Psychiatric: positive: Oriented x3, Motor nml, Sensation nml, Mood/ affect nml Impression/Plan - Problem List Problem List: Hospital day #5 Start Ancef for some erythema at incision - may be irritation from hsai being removed but not willing to take a chance. Start clear liquid diet. Decrease I VF. Dragon disclaimer: This document was created in part using voice recognition technology. Because of the inherent limitations of the system ([employer]'s [employer] user manual states that the licensee understands that speech recognition is a statistical process and that recognition errors are inherent in the process), occasional same sounding word substitutions and grammatical errors do occur and persist despite proofreading. Please read this document for context.
[2018-12-03] MEDS: ceFAZolin 1 GM in SODIUM CHLORIDE 0.9% MINIBAG 100 ML IV SCH ×2 (10:31→17:44)
[2018-12-04] MEDS: SODIUM CHLORIDE FLUSH 0.9% 10 ML SYRINGE IVP SCH ×3 (00:17→17:33)
[2018-12-04] MEDS: ceFAZolin 1 GM in SODIUM CHLORIDE 0.9% MINIBAG 100 ML IV SCH ×3 (02:06→17:33)
--- NOTE | 2018-12-04 09:12 | PROVIDER PROGRESS NOTE ---
Subjective - General Admit Date: 11/28/18 Procedure Date: 11/17/18 Post Op Days: 25 - Review of Systems Wound/Incisions: positive: Drainage (Spontaneous drainage overnight of some purulent material), Erythema improving General: positive: No symptoms HEENT: positive: No symptoms Pulmonary: positive: No symptoms Cardiovascular: positive: No symptoms Gastrointestinal: positive: Abdominal pain (Markedly improved.). negative: Nausea, Vomiting Genitourinary: positive: No symptoms Musculoskeletal: positive: No symptoms Skin: positive: No symptoms Psychiatric: positive: No symptoms Objective - Patient Data Reviewed Vital Signs: Yes Vital Signs: Vital Signs x48h Temp Pulse Resp BP Pulse Ox 12/04/18 08:15 36.7 C 74 16 150/77 H 96 Weight: Weight 12/02/18 12/03/18 12/04/18 23:59 23:59 23:59 Weight (kg) 67 kg 68.5 kg 68.5 kg Intake & Output: Intake and Output Totals x24h 12/02/18 12/03/18 12/04/18 23:59 23:59 23:59 Intake Total 3530 3147.583 1171 Output Total 700 50 Balance 2830 3097.583 1171 - Lab Results Lab Results: 12/04/18 10:12 12/02/18 05:20 - Current Medications Current Medications: Current Medications Generic Name Dose Route Start Last Admin Trade Name Freq PRN Reason Stop Dose Admin Enoxaparin Sodium 40 mg 11/29/18 09:00 12/03/18 08:51 Lovenox SUBQ 40 mg DAILY KHAI Administration Acetaminophen 100 mls @ 400 mls/hr 11/28/18 16:43 12/03/18 22:01 Ofirmev IV Infused Q6HR PRN Infusion PAIN Cefazolin Sodium 1 gm/ Sodium 100 mls @ 200 mls/hr 12/03/18 10:00 12/04/18 02:50 Chloride IV 12/09/18 23:59 Infused Q8H KHAI Infusion Potassium Chloride/Dextrose/Sod Cl 1,000 mls @ 60 mls/hr 12/03/18 09:40 12/04/18 02:50 IV 60 mls/hr .[id number] KHAI Infusion Ketorolac Tromethamine 30 mg 12/01/18 13:14 12/01/18 13:59 Toradol Inj (30mg) IVP 12/06/18 13:13 30 mg Q6HR PRN Administration PAIN Ondansetron HCl 4 mg 11/28/18 16:38 12/01/18 12:45 Zofran Inj IVP 4 mg Q6HR PRN Administration Nausea / Vomiting Pantoprazole Sodium 40 mg 12/01/18 14:00 12/03/18 08:50 Protonix IV 40 mg DAILY KHAI Administration Phenol/Menthol 2 sprays 12/02/18 16:50 12/02/18 22:35 Chloraseptic MM 2 sprays Q2HR PRN Administration Throat Pain Sodium Chloride 10 ml 11/28/18 16:38 12/01/18 15:15 Normal Saline Flush 0.9% IVP 10 ml PRN PRN Administration NEEDED PER PROVIDER ORDERS Sodium Chloride 10 ml 11/28/18 17:00 12/04/18 00:17 Normal Saline Flush 0.9% IVP 10 ml 0100,0900,1700 KHAI Administration - Physical Exam Wound/Incisions: positive: Drainage, Erythema improving General Appearance: positive: No acute distress Eyes Bilateral: positive: No lid inflammation, Conjunctivae nml, No scleral icterus ENT: positive: No signs of dehydration Respiratory: positive: Chest non-tender, No respiratory distress, Breath sounds nml Cardiovascular: positive: Regular rate & rhythm Abdomen: positive: Non-tender (Pain is much better now that the wound has spontaneously drained.), Nml bowel sounds Skin: positive: Color nml Extremities: positive: Non-tender, Nml appearance Neurologic/Psychiatric: positive: Oriented x3, Motor nml, Sensation nml, Mood/affect nml ABX Reporting Has patient been on IV antibiotics over the past 48 hours?: Yes Impression/Plan - Problem List Problem List: Hospital day #6 for early small bowel obstruction - ileus Advance diet and increase activity. Switch from IV Ancef to oral Keflex 500 mg p.o. 4 times daily. Patient is shower today and that soap and water run through the wound. This is clearly a wound infection and with drainage this will heal. Antibiotics serve a supportive role. Dragon disclaimer: This document was created in part using voice recognition technology. Because of the inherent limitations of the system ([employer] user manual states that the licensee understands that speech recognition is a statistical process and that recognition errors are inherent in the process), occasional same sounding word substitutions and grammatical errors do occur and persist despite proofreading. Please read this document for context.
[2018-12-04] MEDS: ENOXAPARIN 40 MG/0.4 ML SYRINGE SUBQ SCH (09:56)
[2018-12-04] MEDS: PANTOPRAZOLE 40 MG VIAL IV SCH (09:57)
[2018-12-04 10:18] LABS: BASOPHILS % (AUTO) 0.7 %; EOSINOPHILS # (AUTO) 0.2 10^3/uL (0.0-0.7); EOSINOPHILS % (AUTO) 2.6 %; HGB - HEMOGLOBIN 9.9 g/dL (12.0-16.0); LYMPHOCYTES % (AUTO) 15.5 %; MEAN CORPUSCULAR HEMOGLOBIN 29.5 pg (27.0-31.0); MEAN CORPUSCULAR VOLUME 86.7 fL (81.0-99.0); MEAN PLATELET VOLUME 5.7 fL (7.9-10.8); MONOCYTES # (AUTO) 0.8 10^3/uL (0.0-1.0); MONOCYTES % (AUTO) 12.1 %; NEUTROPHILS # (AUTO) 4.4 10^3/uL (1.5-6.6); NEUTROPHILS % (AUTO) 69.1 %; PLT - PLATELET COUNT 419 10^3/uL (130-450); RED BLOOD COUNT 3.37 10^6/uL (4.20-5.40); RED CELL DISTRIBUTION WIDTH 12.6 % (12.0-15.0); WHITE BLOOD COUNT 6.4 x10^3/uL (4.8-10.8)
[2018-12-04] MEDS: D5NS W/20 MEQ KCL 1,000 ML IV SCH (10:53)
[2018-12-05] MEDS: ceFAZolin 1 GM in SODIUM CHLORIDE 0.9% MINIBAG 100 ML IV SCH ×2 (02:04→10:24)
[2018-12-05] MEDS: SODIUM CHLORIDE FLUSH 0.9% 10 ML SYRINGE IVP SCH ×3 (02:06→16:08)
[2018-12-05] MEDS: D5NS W/20 MEQ KCL 1,000 ML IV SCH (06:16)
[2018-12-05] MEDS: ENOXAPARIN 40 MG/0.4 ML SYRINGE SUBQ SCH (08:43)
[2018-12-05] MEDS: PANTOPRAZOLE 40 MG VIAL IV SCH (08:44)
[2018-12-05] MEDS: SODIUM CHLORIDE FLUSH 0.9% 10 ML SYRINGE IVP PRN (08:44)
--- NOTE | 2018-12-05 15:05 | DISCHARGE SUMMARY ---
"Discharge Summary Admit Date: 11/28/18 Discharge Date: 12/05/18 Discharging Provider: Kuldeep Jaramillo MD Primary Care Provider: Reema Tse Code Status: Attempt Resuscitation Condition at Discharge: Good Discharge Disposition: 01 Home, Self Care - DIAGNOSES Admission Diagnoses: Early postoperative small bowel obstruction-ileus Discharge Diagnoses with Status of Each Condition: Resolved. - HPI History of Present Illness: Patient is a very pleasant 58 year old female who had Dr. Lipscomb operate for an adhesive SBO. The operation was technically difficlut and long and consisted of an extensive adhesiolysis. After intially improving, the patient started having less output and presented with a early postoperative SBO-adhesiolysis. Treatment was supportive care with IVF and intestinal decompression and the patient eventually improved. Now passing gas but no BM yet. Additionally, the patient's wound spontaneously opened draining pus and I started antibiotics. - CONSULTS | PROCEDURES Consultations: Kuldeep Jaramillo MD Procedures: None. - HOSPITAL COURSE Hospital Course: See above. - ALLERGIES Allergies/Adverse Reactions: Allergies Allergy/AdvReac Type Severity Reaction Status Date / Time prochlorperazine Allergy Cramps Verified 11/28/18 09:25 [From Compazine] prochlorperazine edisylate * Allergy Cramps Verified 11/28/18 09:25 [From Compazine] prochlorperazine maleate * Allergy Cramps Verified 11/28/18 09:25 [From Compazine] - MEDICATIONS Home Medications: Ambulatory Orders Medication Instructions Recorded Confirmed No Known Home Medications 11/28/18 11/28/18 Home Medications Other | Comments: Patient will be sent home on [place] 5/325, Colace and Keflex. - PHYSICAL EXAM AT DISCHARGE General Appearance: positive: No acute distress Eyes Bilateral: positive: No lid inflammation, Conjunctivae nml, No scleral icterus ENT: positive: No signs of dehydration Neck: positive: Trachea midline Respiratory: positive: Chest non-tender, No respiratory distress, Breath sounds nml Cardiovascular: positive: Regular rate & rhythm Abdomen: positive: Non-tender, Nml bowel sounds, No distention Skin: positive: Color nml Extremities: positive: Non-tender, Full ROM, Nml appearance Neurologic/Psychiatric: positive: Oriented x3, Motor nml, Sensation nml, Mood/affect nml - LABS Result Diagrams: 12/04/18 10:12 12/02/18 05:20 - FOLLOW UP Follow Up: MD Clint - TIME SPENT Time Spent in Discharge (Minutes): 45"
--- NOTE | 2018-12-05 15:12 | Discharge Plan ---
Discharge Plan Disposition: Home, Self Care Condition: Good Prescriptions: Cephalexin [Keflex] 250 mg PO QID #28 capsule Docusate Sodium 250Mg Capsule [Colace 250Mg Capsule] 250 mg PO DAILY #10 capsule HYDROcod/ACETAM 5/325 [[place] 5/325] 1 each PO Q4H #20 tablet Diet: Regular Activity Restrictions: No lifting >15 pounds Shower Restrictions: No Driving Restrictions: Yes Weight Bearing: Full Weight Additional Instructions or Follow Up instructions: Call with any surgical questions or concerns. No Smoking: If you smoke, Please STOP! Call for help. Follow-up with: Reema Tse PA-C [Primary Care Provider] - Kuldeep Jaramillo MD [Provider Admit Priv/Credential] -
[2018-12-05 15:47] VITALS: BP 148/83
== END 2018-12-05 17:04 | disposition home or self-care (01) | DRG 389 ==
LOC: ED 08:54 → MS2 16:38
PROVIDERS: ADMIT Surgery; ATTEND Surgery
DX: K91.31 Postprocedural partial intestinal obstruction (principal); T81.31XA Disruption of external operation (surgical) wound, not elsewhere classified, initial encounter; T81.49XA Infection following a procedure, other surgical site, initial encounter; E86.0 Dehydration; Y83.8 Other surgical procedures as the cause of abnormal reaction of the patient, or of later complication, without mention of misadventure at the time of the procedure; Y92.234 Operating room of hospital as the place of occurrence of the external cause; K80.20 Calculus of gallbladder without cholecystitis without obstruction; Z87.891 Personal history of nicotine dependence
CPT/HCPCS: 36415; 74019; 74177; 74250; 80053; 81003; 83605; 83690; 85025; 96361; 96374; 96375; 99283; 99284; A9270; J0131; J1650; J2060; Q9963; Q9967; 71045; 74018; 81001; 87086

== ENCOUNTER 2021-01-10 08:20 | Emergency (ER) | payer OTHER ==
[2021-01-10 08:37] VITALS: BP 182/86
--- NOTE | 2021-01-10 08:53 | ED Physician Documentation ---
PD HPI UPPER EXT INJURY - Stated complaint Stated Complaint: LEFT ARM INJURY - Chief complaint Chief Complaint: Trauma Ext - History obtained from History obtained from: Patient - History of Present Illness Location: Left, Wrist Type of injury: Fall (FOOSH with wrist pain.) Where injury occurred: Home Timing - onset: Today Timing - details: Abrupt onset, Still present Improved by: Rest Worsened by: Moving, Palpating Associated symptoms: Swelling (mild dorsal wrist). No: Weakness, Numbness Similar symptoms before: Has not had sx before Recently seen: Not recently seen Review of Systems Constitutional: denies: Fever, Chills Nose: denies: Rhinorrhea / runny nose, Congestion Throat: denies: Sore throat Respiratory: denies: Cough Skin: denies: Abrasion (s), Laceration (s) Neurologic: denies: Focal weakness, Numbness PD PAST MEDICAL HISTORY - Past Medical History Cardiovascular: None Respiratory: None Neuro: None Endocrine/Autoimmune: None GI: None : None HEENT: None Psych: None Musculoskeletal: None Derm: None - Past Surgical History Past Surgical History: Yes General: Other (Lysis of Adhesions 11/17/18.) /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, 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 - Present Medications Home Medications: Ambulatory Orders Medication Instructions Recorded Confirmed Docusate Sodium 250Mg Capsule 250 mg PO DAILY #10 capsule 12/05/18 [Colace 250Mg Capsule] HYDROcod/ACETAM 5/325 [[place] 5/325] 1 each PO Q4H #20 tablet 12/05/18 cephALEXin [Keflex] 250 mg PO QID #28 capsule 12/05/18 - Allergies Allergies/Adverse Reactions: Allergies Allergy/AdvReac Type Severity Reaction Status Date / Time prochlorperazine Allergy Cramps Verified 01/10/21 08:38 [From Compazine] prochlorperazine edisylate * Allergy Cramps Verified 01/10/21 08:38 [From Compazine] prochlorperazine maleate * Allergy Cramps Verified 01/10/21 08:38 [From Compazine] - Social History Does the pt smoke?: No Smoking Status: Never smoker Does the pt drink ETOH?: No PD ED PE NORMAL - Vitals Vital signs reviewed: Yes - General General: Alert and oriented X 3, No acute distress, Well developed/nourished - Derm Derm: Normal color, Warm and dry - Extremities Extremities: Other (left wrist with tenderness dorsal area. Not at snuffbox. No noted deformity. Normal color and cap refill in fingertips. ) - Neuro Neuro: Alert and oriented X 3, No motor deficit, No sensory deficit, Normal speech Results - Vitals Vitals: Oxygen O2 Source Room air - Rads (name of study) left wrist Radiology: Prelim report reviewed (no fractures), See rad report PD MEDICAL DECISION MAKING - ED course Complexity details: reviewed results (no fractures), considered differential, d/w patient Departure - Departure Disposition: 01 Home, Self Care Clinical Impression: Accidental fall Qualifiers: Encounter type: initial encounter Qualified Code(s): W19.XXXA - Unspecified fall, initial encounter Left wrist sprain Qualifiers: Encounter type: initial encounter Qualified Code(s): S63.502A - Unspecified sprain of left wrist, initial encounter Condition: Stable Record reviewed to determine appropriate education?: Yes Instructions: ED Sprain Wrist Follow-Up: Augie Moss MD [Provider Admit Priv/Credential] - Comments: Splint and less use for 3-5 days. Recheck if not fully better over a week or so. Forms: Activity restrictions Discharge Date/Time: 01/10/21 10:07
[2021-01-10] MEDS ORDERED: ACETAMINOPHEN 325 MG TABLET PO STA (09:10)
[2021-01-10] MEDS ORDERED: IBUPROFEN 600 MG TABLET PO STA (09:10)
--- NOTE | 2021-01-10 09:30 | XRAY Report ---
PROCEDURE: Wrist 4 View LT INDICATIONS: fell to left arm today at work TECHNIQUE: 4 views of the wrist were acquired. COMPARISON: None FINDINGS: Bones: No fractures or dislocations. Osteoarthritic changes along radial aspect of left wrist are se en. No suspicious bony lesions. Scaphoid view: Scaphoid is grossly intact. Soft tissues: No suspicious soft tissue calcifications. IMPRESSION: Mild wrist joint osteoarthritis. No gross acute left wrist fracture or dislocation. Reviewed by: Tye Martins MD on 01/10/2021 9:28 AM PDT Approved by: Tye Martins MD on 01/10/2021 9:28 AM PDT Station ID: [id number]
== END 2021-01-10 10:07 | disposition home or self-care (01) ==
LOC: ED 08:20
DX: S63.502A Unspecified sprain of left wrist, initial encounter (principal); W01.0XXA Fall on same level from slipping, tripping and stumbling without subsequent striking against object, initial encounter; Y92.009 Unspecified place in unspecified non-institutional (private) residence as the place of occurrence of the external cause
CPT/HCPCS: 73110; 99282; 99283; A9270

== ENCOUNTER 2023-08-17 08:00 | Outpatient (CLI) | payer OTHER ==
--- NOTE | 2023-08-17 12:24 | XRAY Report ---
PROCEDURE: Ankle 3+V LT INDICATIONS: LEFT ANKLE PAIN TECHNIQUE: 3 views of the ankle were acquired. COMPARISON: None. FINDINGS: Bones: No acute fractures or dislocations. Ankle mortise is normally aligned. No suspicious bony l esions. Plantar calcaneal enthesophyte. Remote fracture of the medial malleolus. Soft tissues: No tibiotalar joint effusion. Achilles tendon appears normal. IMPRESSION: No acute bony abnormality. Remote avulsion fracture of the medial malleolus. Reviewed by: Tl Graf MD on 08/17/2023 12:23 PM PST Approved by: Tl Graf MD on 08/17/2023 12:23 PM PST Station ID: [id number]
== END 2023-08-17 23:59 | disposition home or self-care (01) ==
LOC: DI.S 08:00
PROVIDERS: ATTEND Registered Nurse
DX: M25.572 Pain in left ankle and joints of left foot (principal)

== ENCOUNTER 2024-01-09 13:23 | Emergency (ER) | payer OTHER ==
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
--- NOTE | 2024-01-09 15:43 | XRAY Report ---
PROCEDURE: Elbow 3+V LT INDICATIONS: Trauma TECHNIQUE: 3 views of the elbow were acquired. COMPARISON: None. FINDINGS: Bones: Mildly displaced olecranon fracture. No suspicious bony lesions. Soft tissues: Positive effusion. No suspicious soft tissue calcifications or masses. IMPRESSION: Mildly displaced fracture of the olecranon of the ulna. Reviewed by: Zhang Delatorre MD on 01/09/2024 3:42 PM PDT Approved by: Zhang Delatorre MD on 01/09/2024 3:42 PM PDT Station ID: [id number]
[2024-01-09] MEDS: KETOROLAC 60 MG/2 ML VIAL IM STA (16:03)
--- NOTE | 2024-01-09 16:03 | XRAY Report ---
PROCEDURE: Wrist 3+V LT INDICATIONS: wrist inj TECHNIQUE: 3 views of the wrist were acquired. COMPARISON: 01/10/2021. FINDINGS: Bones: No definite fractures or dislocations. No suspicious bony lesions. Soft tissues: There are dorsal soft tissue densities at the level of the carpus and carpometacarpal joints laterally, which may represent radiopaque foreign bodies. IMPRESSION: Findings suggest radiopaque foreign bodies dorsal medially. No definite acute fractures. Densities ar e presumed to represent foreign bodies. Reviewed by: Zhang Delatorre MD on 01/09/2024 4:02 PM PDT Approved by: Zhang Delatorre MD on 01/09/2024 4:02 PM PDT Station ID: [id number]
[2024-01-09] MEDS: HYDROmorphone 1 MG/ML CARPUJECT IM STA (16:04)
[2024-01-09] MEDS: TETANUS/DIPHTHERIA/PERTUSSIS 0.5 ML SYRINGE IM ONE (16:04)
[2024-01-09] MEDS: LIDOCAINE OINTMENT 5% 35.44 GM TUBE TOP STA (16:05)
--- NOTE | 2024-01-09 17:17 | XRAY Report ---
PROCEDURE: Finger(s) RT INDICATIONS: Thumb injury TECHNIQUE: AP hand, 2 views of the thumb acquired. COMPARISON: None. FINDINGS: Bones: There is a tiny minimally displaced avulsion off the medial base of the distal phalanx of the thumb. Soft tissues: No suspicious soft tissue calcifications or masses. IMPRESSION: Tiny minimally displaced avulsion fracture off of the medial base of the distal phalanx of the thumb. Reviewed by: Zhang Delatorre MD on 01/09/2024 5:16 PM PDT Approved by: Zhang Delatorre MD on 01/09/2024 5:16 PM PDT Station ID: [id number]
[2024-01-09 17:46] VITALS: BP 133/74; O2SAT 100
== END 2024-01-09 17:43 | disposition home or self-care (01) ==
LOC: ED 13:23
DX: S52.022A Displaced fracture of olecranon process without intraarticular extension of left ulna, initial encounter for closed fracture (principal); S62.501A Fracture of unspecified phalanx of right thumb, initial encounter for closed fracture; V29.881A Electric (assisted) bicycle rider (driver) (passenger) injured in other specified transport accidents, initial encounter; Y93.55 Activity, bike riding; Z23 Encounter for immunization
CPT/HCPCS: 12002; 29105; 73080; 73110; 73140; 90471; 90715; 96372; 99284; A9270; J1170